=== PATIENT | female | born 1955 | race Caucasian/White ===

== ENCOUNTER 2018-09-15 05:20 | Inpatient (IN) | payer MEDICARE, MEDICAID ==
[2018-09-15] MEDS ORDERED: MAGNESIUM SULFATE/D5W 1 GM/100 ML RTUPB IV ONE (05:23)
[2018-09-15] MEDS ORDERED: METHYLPREDNISOLONE INJ 125 MG/2 ML SDV ONE (05:23)
[2018-09-15] MEDS ORDERED: ALBUTEROL SULFATE 0.083% NEB 2.5 MG/3 ML AMPUL NEB ONE ×2 (05:24→05:28)
[2018-09-15] MEDS: MAGNESIUM SULFATE/D5W 1 GM/100 ML RTUPB IV SCH ×2 (05:28→06:00)
[2018-09-15] MEDS ORDERED: METHYLPREDNISOLONE INJ 125 MG/2 ML SDV IV ONE (05:29)
[2018-09-15] MEDS ORDERED: MIDAZOLAM HCL 50 MG/100 ML RTUINJ IV PRN (05:34)
--- NOTE | 2018-09-15 05:35 | ER Document Report ---
ED General - General Stated Complaint: TROUBLE BREATHING Time Seen by Provider: 09/15/18 05:27 Notes: Patient is a 58-year-old female was brought in by paramedics due to respiratory failure. Patient called 911 but she was having difficulty breathing. When paramedics arrived she was sent over and her children with a nebulizer mask on. She is unresponsive. Pupils were both dilated. She still had good pulses. They intubated her and brought her to the ER. She received ketamine in route because her lung magana are very tight with wheezing. Paramedics said that she had no purposeful movement when they arrived. They did give her rocuronium when they intubated her. She has not had further sedation. No further history is available at this time as there was no one else at the house. - Related Data Allergies/Adverse Reactions: No Known Allergies Allergy (Unverified 09/15/18 13:36) Past Medical History - Social History Smoking Status: Unknown if Ever Smoked Frequency of alcohol use: unknown Drug Abuse: Other - unknown Family History: Other - unknown Review of Systems - Review of Systems -: Yes ROS unobtainable due to patient's medical condition - Patient is unresponsive Physical Exam - Vital signs Vitals: Resp BP Pulse Ox 18 102/31 L 98 09/15/18 05:21 09/15/18 05:21 09/15/18 05:21 - Notes Notes: General Appearance: Well nourished, unresponsive. Patient being manually ventilated. Vitals: reviewed, See vital signs table. Head: no swelling or tenderness to the head Eyes: Pupils are fixed and dilated, EOMI, Conjuctiva clear Mouth: No decreasd moisture Throat: Intubated Lungs: Wheezing. poor to fair air exchange. Heart: tachycardic rate, Regular rythm, No murmur, no rub Abdomen: Normal BS, soft, No rigidity, No abdominal tenderness, No guarding, no rebound, Extremities:good pulses in all extremities, no edema. Skin: warm, dry, appropriate color, no rash Neuro: Patient's pupils are fixed and dilated. She has no purposeful movement. She is not currently on any sedating medications other than the ketamine and rocuronium that she received by the paramedics. Course - Re-evaluation Re-evalutation: 09/15/18 05:35 Patient has no purposeful movement but she also did receive rocuronium by the paramedics therefore we will place her on some sedation to make sure that she is not awake and paralyzed. I am concerned with the fact that she is sure pupils are fixed and dilated when paramedics arrived at the house. It is atypical for someone to have respiratory failure and have fixed pupil dilated pupils without going into cardiac arrest. I therefore will obtain a CT scan to make sure she does not have actual intracranial bleed. We will continue to treat her from a respiratory standpoint as well with nebulizer treatments, solu medrol, magnesium. - Vital Signs Vital signs: Temp Pulse Resp BP Pulse Ox 99.5 F 96 27 H 116/78 99 09/15/18 20:00 09/15/18 18:00 09/15/18 18:00 09/15/18 18:00 09/15/18 18:00 - Laboratory Result Diagrams: 09/15/18 05:25 09/15/18 05:25 Laboratory results interpreted by me: 09/15/18 09/15/18 09/15/18 05:25 05:25 05:25 WBC 12.5 H Hgb 11.7 L MCHC 31.9 L RDW 16.0 H Seg Neuts % (Manual) 40 L Lymphocytes % (Manual) 52 H Metamyelocytes % 1 H Abs Lymphs (Manual) 6.6 H VBG pH 6.86 L* VBG pCO2 155.4 H* Glucose 258 H Direct Bilirubin 0.5 H AST 71 H NT-Pro-B Natriuret Pep Total Protein 6.0 L 09/15/18 05:25 WBC Hgb MCHC RDW Seg Neuts % (Manual) Lymphocytes % (Manual) Metamyelocytes % Abs Lymphs (Manual) VBG pH VBG pCO2 Glucose Direct Bilirubin AST NT-Pro-B Natriuret Pep 2250 H Total Protein - EKG Interpretation by Me Additional EKG results interpreted by me: 09/15/18 05:37 EKG is reviewed and interpreted by me. EKG shows sinus tachycardia with rate of [address] segment elevation or depression. No ischemic T wave inversions. DC interval, QRS duration, QT intervals are within normal range. Patient has occasional PVC. Discharge - Discharge Clinical Impression: Respiratory failure Qualifiers: Chronicity: acute Respiratory failure complication: hypercapnia Qualified Code(s): J96.02 - Acute respiratory failure with hypercapnia Condition: Critical Disposition: ADMITTED INPATIENT
[2018-09-15] MEDS ORDERED: MIDAZOLAM HCL 50 MG/100 ML RTUINJ ONE (05:39)
[2018-09-15 06:01] LABS: HEMATOCRIT 36.8 % (36.0-47.0); HEMOGLOBIN 11.7 g/dL (12.0-15.5); MEAN CORPUSCULAR HEMOGLOBIN 29.4 pg (27.0-33.4); MEAN CORPUSCULAR HGB CONC 31.9 g/dL (32.0-36.0); MEAN CORPUSCULAR VOLUME 92 fl (80-97); PLATELET COUNT 404 10^3/uL (150-450); WHITE BLOOD COUNT 12.5 10^3/uL (4.0-10.5)
[2018-09-15 06:06] LABS: ALANINE AMINOTRANSFERASE 24 U/L (9-52); ALBUMIN 3.6 g/dL (3.5-5.0); ALKALINE PHOSPHATASE 62 U/L (38-126); ANION GAP 13 (5-19); ASPARTATE AMINO TRANSFERASE 71 U/L (14-36); BILIRUBIN,DIRECT 0.5 mg/dL (0.0-0.4); BILIRUBIN,TOTAL 0.5 mg/dL (0.2-1.3); BLOOD UREA NITROGEN 11 mg/dL (7-20); CALCIUM 8.4 mg/dL (8.4-10.2); CARBON DIOXIDE 25 mmol/L (22-30); CHLORIDE 106 mmol/L (98-107); GLUCOSE 258 mg/dL (75-110); POTASSIUM 4.5 mmol/L (3.6-5.0)
[2018-09-15 06:15] LABS: ABSOLUTE LYMPHOCYTES# (MANUAL) 6.6 10^3/uL (0.5-4.7); ABSOLUTE MONOCYTES # (MANUAL) 0.6 10^3/uL (0.1-1.4); BASOPHILS % (MANUAL) 0 % (0-2); EOSINOPHILS % (MANUAL) 1 % (0-6); LYMPHOCYTES % (MANUAL) 52 % (13-45); METAMYELOCYTES % (MANUAL) 1 % (0); MONOCYTES % (MANUAL) 5 % (3-13); PLATELET COMMENT ADEQUATE; SEGMENTED NEUTROPHILS % (MAN) 40 % (42-78); TOTAL CELLS COUNTED 100
[2018-09-15 06:16] LABS: ANISOCYTOSIS SLIGHT; POIKILOCYTOSIS SLIGHT
--- NOTE | 2018-09-15 06:28 | RADIOLOGY REPORT (SQ) ---
Chest single view on 09/15/2018 at 5:32 AM CLINICAL INDICATION: Shortness of breath COMPARISON: 08/05/2018 FINDINGS: ET tube tip is in the midthoracic trachea. Other tubes and lines have been removed. A few overlying wires are noted. Heart is upper limits normal for size. There are worsening bilateral interstitial opacities likely representing edema. Vascular calcification is noted in the aorta. IMPRESSION: Mild worsening bilateral interstitial opacities suggesting edema.
--- NOTE | 2018-09-15 06:35 | ER Document Report ---
ED Resuscitation - General Chief Complaint: Unresponsive Stated Complaint: TROUBLE BREATHING Time Seen by Provider: 09/15/18 05:27 Notes: 58-year-old female was brought in by paramedics due to respiratory failure. Patient called 911 but she was having difficulty breathing. When paramedics arrived she was sent over and her children with a nebulizer mask on. She is unresponsive. Pupils were both dilated. She still had good pulses. They intubated her and brought her to the ER. She received ketamine in route because her lung magana are very tight with wheezing. Paramedics said that she had no purposeful movement when they arrived. They did give her rocuronium when they intubated her. She has not had further sedation. No further history is available at this time as there was no one else at the house. Past Medical History - Social History Smoking Status: Unknown if Ever Smoked Frequency of alcohol use: unknown Drug Abuse: Other - unknown Family History: Other - unknown Patient has suicidal ideation: No Patient has homicidal ideation: No Renal/ Medical History: Denies: Hx Peritoneal Dialysis Review of Systems - Review of Systems -: Yes ROS unobtainable due to patient's medical condition Physical Exam - Vital signs Vitals: Resp BP Pulse Ox 18 102/31 L 98 09/15/18 05:21 09/15/18 05:21 09/15/18 05:21 - Notes Notes: GENERAL_APPEARANCE: well_nourished, obtunded intubated in distress VITALS: reviewed, see vital signs table. HEAD: no_swellingon the head. EYES: PERRL, EOMI, conjunctiva_clear. NOSE: no_nasal_discharge. MOUTH: (-)decreased moisture. THROAT: no_throat_inflammation, no_airway_obstruction. no_lymphadenopathy NECK: supple, (-)thyromegaly. Negative JVD CHEST_WALL: No crepitus or subcutaneous emphysema LUNGS: Scattered_wheezing, no_rales, no_rhonchi, positive accessory muscle use, fair air exchange bilateral. HEART: normal_rate, normal_rhythm, normal_S1, normal_S2, (-)S3, (-)S4, n o_murmur, no_rub. ABDOMEN: soft,, (-)guarding, (-)rebound, no_organomegaly, no_abd_masses. EXTREMITIES: good pulses in all_extremities, no_edema. SKIN: warm, dry, good_color, no_rash. MENTAL_STATUS: Intubated paralyzed NEURO: Intubated and paralyzed at this time Course - Re-evaluation Re-evalutation: 09/15/18 06:35 The patient was intubated via EMS in the field for being unresponsive. Patient did have some wheezing but has improved with aerosol treatments. Get a blood gas. Patient is comfortable V intubation we will work the patient up and admit to the intensive care unit. 09/15/18 08:17 PCO2 is 155. I have adjusted the minute volume up on the vent down the FiO2 from 100% down to 60%. The patient received steroids and magnesium is doing better. Patient's been maintained on a Versed drip. CT scan of the brain was normal. This is likely hypercarbic respiratory failure. I spoke with the hospital service for ICU admission. - Vital Signs Vital signs: Temp Pulse Resp BP Pulse Ox 18 103/48 L 98 09/15/18 07:07 09/15/18 07:07 09/15/18 07:07 - Laboratory Result Diagrams: 09/15/18 05:25 09/15/18 05:25 Laboratory results interpreted by me: 09/15/18 09/15/18 09/15/18 05:25 05:25 05:25 WBC 12.5 H Hgb 11.7 L MCHC 31.9 L RDW 16.0 H Seg Neuts % (Manual) 40 L Lymphocytes % (Manual) 52 H Metamyelocytes % 1 H Abs Lymphs (Manual) 6.6 H VBG pH 6.86 L* VBG pCO2 155.4 H* Glucose 258 H Direct Bilirubin 0.5 H AST 71 H NT-Pro-B Natriuret Pep Total Protein 6.0 L 09/15/18 05:25 WBC Hgb MCHC RDW Seg Neuts % (Manual) Lymphocytes % (Manual) Metamyelocytes % Abs Lymphs (Manual) VBG pH VBG pCO2 Glucose Direct Bilirubin AST NT-Pro-B Natriuret Pep 2250 H Total Protein - Diagnostic Test Radiology reviewed: Image reviewed - EKG Interpretation by Me EKG shows normal: Sinus rhythm Rate: Normal Rhythm: NSR Critical Care Note - Critical Care Note Total time excluding time spent on procedures (mins): 45 Discharge - Discharge Clinical Impression: Respiratory failure Qualifiers: Chronicity: acute Respiratory failure complication: hypercapnia Qualified Code(s): J96.02 - Acute respiratory failure with hypercapnia Condition: Critical Disposition: ADMITTED INPATIENT Admitting Provider: Regino (Hospitalist) Unit Admitted: ICU
--- NOTE | 2018-09-15 06:42 | RADIOLOGY REPORT (SQ) ---
EXAM DESCRIPTION: CT HEAD WITHOUT IV CONTRAST COMPLETED DATE/TME: 09/15/2018 05:27 CLINICAL HISTORY: 62 years, Female, unresponsive COMPARISON: None. TECHNIQUE: Axial CT images of the brain were obtained without contrast. Sagittal and coronal reformats were performed. DL 910 Images stored on PACS. All CT scanners at this facility use dose modulation, iterative reconstruction, and/or weight based dosing when appropriate to reduce radiation dose to as low as reasonably achievable (ALARA). [facility]: Dose Right [facility]: CareDose [facility]: Dose Right [facility]: Teradose 4D [facility]: [employer] LIMITATIONS: None. FINDINGS: There is no acute cortical infarct, hemorrhage, mass, edema, hydrocephalus, or extra-axial fluid collection. The rodgers-white matter differentiation is preserved. There is mild diffuse cerebral atrophy with mild periventricular deep white matter chronic microvascular changes. The paranasal sinuses and mastoid air cells are clear. There is no acute fracture. IMPRESSION: No acute intracranial abnormality. TECHNICAL DOCUMENTATION: Quality ID # 436: Final reports with documentation of one or more dose reduction techniques (e.g., Automated exposure control, adjustment of the mA and/or kV according to patient size, use of iterative reconstruction technique) copyright 2010 [employer]- All Rights Reserved
[2018-09-15 06:50] LABS: VENOUS BLOOD BASE EXCESS -9.3 mmol/L; VENOUS BLOOD HCO3 27.1 mmol/L (20-32); VENOUS BLOOD PCO2 155.4 mmHg (35-63)
[2018-09-15 07:03] LABS: VENOUS BLOOD PH 6.86 (7.30-7.42)
[2018-09-15 07:17] LABS: TROPONIN I 0.016 ng/mL
--- NOTE | 2018-09-15 08:14 | EKG REPORT ---
SEVERITY:- ABNORMAL ECG - SINUS TACHYCARDIA VENTRICULAR PREMATURE COMPLEX LOW VOLTAGE IN FRONTAL LEADS NONSPECIFIC T ABNORMALITIES, LATERAL LEADS : Confirmed by: Jason Sen 15-Sep-2018 08:13:27
[2018-09-15] MEDS ORDERED: FENTANYL CITRATE INJ/PF 100 MCG/2 ML AMPUL IV ONE ×2 (08:39→09:52)
[2018-09-15] MEDS: MIDAZOLAM HCL 50 MG/100 ML RTUINJ IV PRN ×4 (09:05→22:40)
[2018-09-15] MEDS ORDERED: FENTANYL CITRATE INJ/PF 100 MCG/2 ML AMPUL ONE ×2 (09:29→14:57)
[2018-09-15] MEDS ORDERED: LEVALBUTEROL HCL NEB 1.25 MG/3 ML AMPUL NEB PRN (09:56)
[2018-09-15 10:12] LABS: ARTERIAL BLOOD BASE EXCESS -1.3 mmol/L; ARTERIAL BLOOD H2CO3 2.36 mmol/L (1.05-1.35); ARTERIAL BLOOD HCO3 28.9 mmol/L (20-24); ARTERIAL BLOOD O2 SATURATION 98.2 % (94-98); ARTERIAL BLOOD TOTAL CO2 31.3 mmol/L (21-25)
[2018-09-15 10:14] LABS: ARTERIAL BLOOD FIO2 100%
[2018-09-15 10:16] LABS: ARTERIAL BLOOD PCO2 78.5 mmHg (35-45)
[2018-09-15 10:17] LABS: ARTERIAL BLOOD PH 7.18 (7.35-7.45)
[2018-09-15] MEDS ORDERED: FAMOTIDINE INJ/PF 20 MG/2 ML SDV IV SCH (11:00)
[2018-09-15] MEDS: BUDESONIDE NEB 0.5 MG/2 ML AMPUL NEB SCH ×2 (11:20→20:21)
[2018-09-15] MEDS: IPRATROPIUM/ALBUTEROL 0.5-2.5 MG/3 ML AMPUL NEB SCH ×3 (11:20→20:21)
[2018-09-15] MEDS: METHYLPREDNISOLONE INJ 40 MG/1 ML SDV IV SCH ×3 (11:21→21:30)
[2018-09-15] MEDS ORDERED: GLUCAGON,HUMAN RECOMB 1 MG INJ SUBCUT PRN (11:39)
[2018-09-15] MEDS ORDERED: DEXTROSE 40% GEL 15 GM TUBE PO PRN ×2 (11:39)
[2018-09-15] MEDS ORDERED: DEXTROSE 50%-WATER 25 GM/50 ML DISP.SYRIN IV PRN ×2 (11:39)
[2018-09-15] MEDS ORDERED: NORMAL SALINE 1000 ML 1,000 ML IV PRN (11:39)
[2018-09-15] MEDS ORDERED: ACETAMINOPHEN SOLN 325 MG/10.15 ML UDCUP NG PRN (11:39)
[2018-09-15] MEDS ORDERED: ACETAMINOPHEN 650 MG SUPP.RECT PR PRN (11:39)
[2018-09-15] MEDS ORDERED: PHARMACY COMMUNICATION ORDER MC NR (11:45)
[2018-09-15] MEDS ORDERED: METOPROLOL TARTRATE PF/INJ 5 MG/5 ML SDV IV PRN (11:58)
[2018-09-15 12:06] LABS: ARTERIAL BLOOD BASE EXCESS -0.6 mmol/L; ARTERIAL BLOOD FIO2 35%; ARTERIAL BLOOD H2CO3 1.56 mmol/L (1.05-1.35); ARTERIAL BLOOD HCO3 26.1 mmol/L (20-24); ARTERIAL BLOOD O2 SATURATION 93.2 % (94-98); ARTERIAL BLOOD PCO2 51.7 mmHg (35-45); ARTERIAL BLOOD PH 7.32 (7.35-7.45); ARTERIAL BLOOD PO2 72.3 mmHg (80-100); ARTERIAL BLOOD TOTAL CO2 27.7 mmol/L (21-25)
[2018-09-15] MEDS ORDERED: METOPROLOL TARTRATE PF/INJ 5 MG/5 ML SDV IV ONE (13:45)
[2018-09-15] MEDS: AMPICILLIN SODIUM/SULBACTAM NA 1.5 GM in NORMAL SALINE 50 ML IV SCH ×3 (13:54→23:57)
[2018-09-15] MEDS: LORAZEPAM INJ 2 MG/1 ML VIAL IV PRN ×2 (13:57→21:31)
[2018-09-15] MEDS: INSULIN LISPRO 100 UNIT/ML 3 ML VIAL SUBCUT SCH ×5 (13:58→23:57)
[2018-09-15] MEDS: GABAPENTIN 400 MG CAPSULE NG SCH ×2 (14:03→21:30)
[2018-09-15] MEDS: FUROSEMIDE 20 MG TABLET NG SCH (17:55)
[2018-09-15] MEDS: METFORMIN HCL 850 MG TABLET NG SCH (18:09)
[2018-09-15] MEDS: SACUBITRIL/VALSARTAN 24 MG/26 MG TABLET NG SCH (18:09)
--- NOTE | 2018-09-15 21:16 | EKG REPORT ---
SEVERITY:- ABNORMAL ECG - SINUS RHYTHM PAIRED VENTRICULAR PREMATURE COMPLEXES LOW VOLTAGE IN FRONTAL LEADS NONSPECIFIC T ABNORMALITIES, DIFFUSE LEADS : Confirmed by: Jason Sen 15-Sep-2018 21:15:44
--- NOTE | 2018-09-15 21:17 | PDOC H&P ---
History of Present Illness Admission Date/PCP: 09/15/18 08:31 Patient complains of: Acute onset of shortness of breath History of Present Illness: MONIQUE BAIRD is a 62 year old female with a history of chronic obstructive pulmonary disease. She has been intubated multiple times before. Presents with acute exacerbation of shortness of breath with a pH of 7.15 and a PCO2 of 78. At the time of this encounter she is intubated and unable to provide any information. Past Medical History Cardiac Medical History: Reports: Congestive Heart Failure, Hyperlipidema, Hypertension Pulmonary Medical History: Reports: Asthma, Chronic Obstructive Pulmonary Disease (COPD), Intubation, Pneumonia, Respiratory Failure EENT Medical History: Denies: Cataracts, Nose, Throat Neurological Medical History: Denies: Hemorrhagic CVA, Ischemic CVA, Multiple Sclerosis Endocrine Medical History: Reports: Diabetes Mellitus Type 2, Hypothyroidism Renal/ Medical History: Denies: Chronic Kidney Disease, End Stage Renal Disease Malignancy Medical History: Reports: None GI Medical History: Reports: Gastroesophageal Reflux Disease Musculoskeltal Medical History: Denies: Arthritis, Fibromyalgia Skin Medical History: Denies: Eczema, Psoriasis Psychiatric Medical History: Reports: Depression Denies: Alcohol Dependency, Bipolar Disorder Traumatic Medical History: Reports: None Hematology: Reports: None Infectious Medical History: Reports: None Past Surgical History Past Surgical History: Reports: Coronary Stent, Hysterectomy Social History Information Source: [facility] Records Lives with: Other - Unknown Smoking Status: Unknown if Ever Smoked Amount of Alcoholic Beverages Per Day: Unknown - Advance Directive Resuscitation Status: Full Code Family History Family History: Other - unknown Parental Family History Reviewed: No Children Family History Reviewed: No Sibling(s) Family History Reviewed.: No Medication/Allergy Home Medications: Albuterol Sulfate [Albuterol Sulfate Hfa] 2 puff IH Q6HP PRN 09/15/18 Aspirin [Ecotrin 81 mg EC Tablet] 81 mg PO DAILY 09/15/18 Atorvastatin Calcium [Lipitor 40 mg Tablet] 40 mg PO QHS 09/15/18 Carvedilol [Coreg 6.25 mg Tablet] 6.25 mg PO Q12 09/15/18 Cilostazol 50 mg PO Q12 09/15/18 Clonazepam [Klonopin 1 mg Tablet] 1 mg PO Q12HP PRN 09/15/18 Fluticasone/Umeclidin/Vilanter [Trelegy 100-62.5-25 Mcg Ellipta 14 Dose/Dpi] 1 puff IH DAILY 09/15/18 Furosemide [Lasix 20 mg Tablet] 20 mg PO QAM 09/15/18 Gabapentin [Neurontin 400 mg Capsule] 400 mg PO Q8 09/15/18 Insulin Glargine,Hum.rec.anlog [Lantus Insulin 100 Unit/1 ml 10 ml] 45 unit SUBCUT QHS 09/15/18 Ipratropium/Albuterol Sulfate [Combivent Respimat 4 gm Mdi] 1 puff IH Q6 09/15/18 Ipratropium/Albuterol Sulfate [Duoneb 3 ml Ampul] 3 ml NEB RTQ6HP PRN 09/15/18 Levothyroxine Sodium [Synthroid 0.025 mg Tablet] 0.025 mg PO Q6AM 09/15/18 Metformin HCl 850 mg PO BID 09/15/18 Omeprazole 20 mg PO BID 09/15/18 Ondansetron [Zofran Odt 4 mg Tablet] 4 mg PO Q4HP PRN 09/15/18 Sacubitril/Valsartan [Entresto 24 mg/26 mg Tablet] 1 tab PO Q12 09/15/18 Sertraline HCl [Zoloft 50 mg Tablet] 50 mg PO DAILY 09/15/18 Allergies/Adverse Reactions: No Known Allergies Allergy (Unverified 09/15/18 13:36) Review of Systems ROS unobtainable: Due to endotracheal tube Physical Exam Vital Signs: Temp Pulse Resp BP Pulse Ox 98.2 F 106 H 20 106/47 L 96 09/15/18 10:14 09/15/18 11:20 09/15/18 11:20 09/15/18 10:14 09/15/18 11:20 Intake & Output 09/14/18 09/15/18 09/16/18 06:59 06:59 06:59 Intake Total 200 27 Balance 200 27 Weight 80.6 kg 79.6 kg General appearance: PRESENT: mild distress, well-developed, other - Patient is intubated and awake Head exam: PRESENT: atraumatic, normocephalic Eye exam: PRESENT: conjunctiva pink. ABSENT: scleral icterus Ear exam: PRESENT: normal external ear exam Mouth exam: PRESENT: other - Endotracheal tube in place Neck exam: ABSENT: carotid bruit, JVD, lymphadenopathy Respiratory exam: PRESENT: symmetrical, unlabored, wheezes. ABSENT: rales, rhonchi, tachypnea Cardiovascular exam: PRESENT: +S1, +S2, tachycardia GI/Abdominal exam: PRESENT: normal bowel sounds, soft. ABSENT: distended, tenderness Rectal exam: PRESENT: deferred Gentrourinary exam: PRESENT: indwelling catheter Extremities exam: ABSENT: joint swelling, pedal edema Musculoskeletal exam: PRESENT: normal inspection Neurological exam: PRESENT: alert, awake, oriented to person, other - Unable to fully assess as patient is intubated Psychiatric exam: ABSENT: agitated, anxious Focused psych exam: ABSENT: delusional, restlessness Results Laboratory Results: 09/15/18 05:25 09/15/18 05:25 09/15/18 09/15/18 09/15/18 05:25 05:25 05:25 WBC 12.5 H RBC 4.00 Hgb 11.7 L Hct 36.8 MCV 92 MCH 29.4 MCHC 31.9 L RDW 16.0 H Plt Count 404 Seg Neutrophils % Not Reportable Lymphocytes % Not Reportable Monocytes % Not Reportable Eosinophils % Not Reportable Basophils % Not Reportable Absolute Neutrophils Not Reportable Absolute Lymphocytes Not Reportable Absolute Monocytes Not Reportable Absolute Eosinophils Not Reportable Absolute Basophils Not Reportable Carbonic Acid HCO3/H2CO3 Ratio ABG pH ABG pCO2 ABG pO2 ABG HCO3 ABG O2 Saturation ABG Base Excess VBG pH 6.86 L* VBG pCO2 155.4 H* VBG HCO3 27.1 VBG Base Excess -9.3 FiO2 Sodium 143.6 Potassium 4.5 Chloride 106 Carbon Dioxide 25 Anion Gap 13 BUN 11 Creatinine 0.71 Est GFR ( Amer) > 60 Est GFR (Non-Af Amer) > 60 Glucose 258 H Calcium 8.4 Total Bilirubin 0.5 AST 71 H ALT 24 Alkaline Phosphatase 62 Total Protein 6.0 L Albumin 3.6 09/15/18 09/15/18 09:50 11:00 WBC RBC Hgb Hct MCV MCH MCHC RDW Plt Count Seg Neutrophils % Lymphocytes % Monocytes % Eosinophils % Basophils % Absolute Neutrophils Absolute Lymphocytes Absolute Monocytes Absolute Eosinophils Absolute Basophils Carbonic Acid 2.36 H 1.56 H HCO3/H2CO3 Ratio 12:1 16:1 ABG pH 7.18 L* 7.32 L ABG pCO2 78.5 H* 51.7 H ABG pO2 147.0 H 72.3 L ABG HCO3 28.9 H 26.1 H ABG O2 Saturation 98.2 H 93.2 L ABG Base Excess -1.3 -0.6 VBG pH VBG pCO2 VBG HCO3 VBG Base Excess FiO2 100% 35% Sodium Potassium Chloride Carbon Dioxide Anion Gap BUN Creatinine Est GFR ( Amer) Est GFR (Non-Af Amer) Glucose Calcium Total Bilirubin AST ALT Alkaline Phosphatase Total Protein Albumin 09/15/18 09/15/18 05:25 05:25 Creatine Kinase 61 Troponin I 0.016 NT-Pro-B Natriuret Pep 2250 H Impressions: Chest X-Ray 09/15/18 05:27 IMPRESSION: Mild worsening bilateral interstitial opacities suggesting edema. Head CT 09/15/18 05:27 IMPRESSION: No acute intracranial abnormality. TECHNICAL DOCUMENTATION: Quality ID # 436: Final reports with documentation of one or more dose reduction techniques (e.g., Automated exposure control, adjustment of the mA and/or kV according to patient size, use of iterative reconstruction technique) copyright 2011 [employer]- All Rights Reserved Assessment and Plan - Diagnosis (1) Acute on chronic respiratory failure with hypoxia and hypercapnia Is this a current diagnosis for this admission?: Yes Plan: 09/15/2018-the patient was intubated prior to this encounter. She will be admitted to the intensive care unit. Nebulizers, steroids and antibiotics have been ordered. Dr. Montiel is seeing the patient as well. Will try to wean from the ventilator as tolerated. (2) Coronary artery disease Qualifiers: Coronary Disease-Associated Artery/Lesion type: [place] artery [place] vs. transplanted heart: [place] heart Associated angina: without angina Qualified Code(s): I25.10 - Atherosclerotic heart disease of [place] coronary artery without angina pectoris Is this a current diagnosis for this admission?: Yes Plan: 09/15/2018-unable to determine if the patient is having symptoms. We will continue her cardiac medications at this time. We will monitor her vital signs as well. (3) Hypertension Qualifiers: Hypertension type: essential hypertension Qualified Code(s): I10 - Essential (primary) hypertension Is this a current diagnosis for this admission?: Yes Plan: 09/15/2018-unable to obtain much information. We will continue current medication regimen. (4) Hypothyroidism Qualifiers: Hypothyroidism type: unspecified Qualified Code(s): E03.9 - Hypothyroidism, unspecified Is this a current diagnosis for this admission?: Yes Plan: 09/15/2018-continue current dose of levothyroxine (5) Diabetes mellitus type 2, noninsulin dependent Is this a current diagnosis for this admission?: Yes Plan: 09/15/2018-continue metformin, Accu-Cheks every 6 hours and sliding scale coverage (6) Depression Qualifiers: Depression Type: unspecified Qualified Code(s): F32.9 - Major depressive disorder, single episode, unspecified Is this a current diagnosis for this admission?: Yes Plan: 09/15/2018-continue sertraline (7) Chronic congestive heart failure Qualifiers: Heart failure type: unspecified Qualified Code(s): I50.9 - Heart failure, unspecified Is this a current diagnosis for this admission?: Yes Plan: 09/15/2018-unable to determine specifics at this time. We will continue the carvedilol, Entresto as well as the aspirin, Pletal and Lipitor - Time Time Spent with patient: 35 or more minutes Medications reviewed and adjusted accordingly: Yes - Inpatient Certification Based on my medical assessment, after consideration of the patient's comorbid ities, presenting symptoms, or acuity I expect that the services needed warrant INPATIENT care.: Yes I certify that my determination is in accordance with my understanding of Medicare's requirements for reasonable and necessary INPATIENT services [42 CFR 412.3e].: Yes Medical Necessity: Significant Comorbidiites Make Outpatient Treatment Too Risky, Need For Continuous Telemetry Monitoring, Need for Nebulizer Therapy and Monitoring of Response, Need for IV Antibiotics, Other - Patient is intubated Post Hospital Care: D/C Adult Basic Education Instructor Documentation
[2018-09-15] MEDS: ASPIRIN 81 MG TABLET, CHEWABLE NG SCH (21:30)
[2018-09-15] MEDS: CARVEDILOL 6.25 MG TABLET NG SCH (21:30)
[2018-09-15] MEDS: ATORVASTATIN CALCIUM 40 MG TABLET NG SCH (21:30)
[2018-09-15] MEDS: FENTANYL CITRATE INJ/PF 100 MCG/2 ML AMPUL IV PRN (22:17)
[2018-09-16] MEDS: IPRATROPIUM/ALBUTEROL 0.5-2.5 MG/3 ML AMPUL NEB SCH ×4 (02:08→19:31)
[2018-09-16] MEDS: MIDAZOLAM HCL 50 MG/100 ML RTUINJ IV PRN ×4 (02:50→20:58)
[2018-09-16 03:52] LABS: ARTERIAL BLOOD FIO2 30%; ARTERIAL BLOOD H2CO3 1.23 mmol/L (1.05-1.35); ARTERIAL BLOOD HCO3 25.6 mmol/L (20-24); ARTERIAL BLOOD O2 SATURATION 92.4 % (94-98); ARTERIAL BLOOD PCO2 40.9 mmHg (35-45); ARTERIAL BLOOD PH 7.42 (7.35-7.45); ARTERIAL BLOOD PO2 62.8 mmHg (80-100); ARTERIAL BLOOD TOTAL CO2 26.9 mmol/L (21-25)
[2018-09-16 04:17] LABS: ABSOLUTE LYMPHOCYTES (AUTO) 1.1 10^3/uL (0.5-4.7); ABSOLUTE MONOCYTES (AUTO) 0.4 10^3/uL (0.1-1.4); ABSOLUTE NEUT (AUTO) 12.6 10^3/uL (1.7-8.2); BASOPHILS % (AUTO) 0.1 % (0-2); HEMATOCRIT 32.3 % (36.0-47.0); LYMPHOCYTES % (AUTO) 7.5 % (13-45); MEAN CORPUSCULAR HEMOGLOBIN 29.8 pg (27.0-33.4); MEAN CORPUSCULAR HGB CONC 34.1 g/dL (32.0-36.0); PLATELET COUNT 301 10^3/uL (150-450); RED BLOOD COUNT 3.71 10^6/uL (3.72-5.28); RED CELL DISTRIBUTION WIDTH 16.1 % (11.5-14.0); SEGMENTED NEUTROPHILS % (AUTO) 89.4 % (42-78); TOTAL CELLS COUNTED % (AUTO) 100 %; WHITE BLOOD COUNT 14.1 10^3/uL (4.0-10.5)
[2018-09-16 04:20] LABS: MEAN CORPUSCULAR VOLUME 87 fl (80-97)
[2018-09-16 04:32] LABS: ALANINE AMINOTRANSFERASE 41 U/L (9-52); ALBUMIN 3.4 g/dL (3.5-5.0); ALKALINE PHOSPHATASE 79 U/L (38-126); ANION GAP 8 (5-19); ASPARTATE AMINO TRANSFERASE 26 U/L (14-36); BILIRUBIN,DIRECT 0.2 mg/dL (0.0-0.4); BILIRUBIN,TOTAL 0.3 mg/dL (0.2-1.3); BLOOD UREA NITROGEN 12 mg/dL (7-20); CALCIUM 8.7 mg/dL (8.4-10.2); CARBON DIOXIDE 26 mmol/L (22-30); CHLORIDE 107 mmol/L (98-107); GLUCOSE 196 mg/dL (75-110); TOTAL PROTEIN 5.7 g/dL (6.3-8.2)
[2018-09-16] MEDS: FENTANYL CITRATE INJ/PF 100 MCG/2 ML AMPUL IV PRN ×3 (04:32→21:55)
[2018-09-16 04:43] LABS: POTASSIUM 3.2 mmol/L (3.6-5.0)
[2018-09-16] MEDS: LORAZEPAM INJ 2 MG/1 ML VIAL IV PRN ×2 (05:46→15:43)
[2018-09-16] MEDS: GABAPENTIN 400 MG CAPSULE NG SCH ×3 (05:46→21:01)
[2018-09-16] MEDS: METHYLPREDNISOLONE INJ 40 MG/1 ML SDV IV SCH ×3 (05:46→21:01)
[2018-09-16] MEDS: PANTOPRAZOLE SODIUM 40 MG PACKET.DR NG SCH (05:46)
[2018-09-16] MEDS: LEVOTHYROXINE SODIUM 0.025 MG TABLET NG SCH (05:46)
[2018-09-16] MEDS: INSULIN LISPRO 100 UNIT/ML 3 ML VIAL SUBCUT SCH ×5 (05:47→23:43)
[2018-09-16] MEDS: AMPICILLIN SODIUM/SULBACTAM NA 1.5 GM in NORMAL SALINE 50 ML IV SCH ×2 (06:21→12:01)
[2018-09-16] MEDS ORDERED: POTASSIUM CHLORIDE 20 MEQ PACKET NG ONE (06:30)
--- NOTE | 2018-09-16 08:13 | RADIOLOGY REPORT (SQ) ---
EXAM DESCRIPTION: CHEST SINGLE VIEW COMPLETED DATE/TIME: 09/16/2018 6:24 am REASON FOR STUDY: copd/resp failure COMPARISON: 09/15/2018 NUMBER OF VIEWS: One view. TECHNIQUE: Single frontal radiographic image of the chest acquired. LIMITATIONS: None. FINDINGS: LUNGS AND PLEURA: Stable appearance. MEDIASTINUM AND HILAR STRUCTURES: Stable heart size and mediastinal structures. HEART AND VASCULAR STRUCTURES: Stable appearance. SUPPORT DEVICES: Appropriate location without change. BONES: No acute findings. OTHER: No other significant finding. IMPRESSION: STABLE APPEARANCE OF THE CHEST. SUPPORT DEVICES UNCHANGED. TECHNICAL DOCUMENTATION: JOB ID: [id number] [employer]- All Rights Reserved Reading location - IP/workstation name: [email or web address]
[2018-09-16] MEDS: BUDESONIDE NEB 0.5 MG/2 ML AMPUL NEB SCH ×2 (08:26→20:08)
[2018-09-16] MEDS: METFORMIN HCL 850 MG TABLET NG SCH ×2 (10:00→17:49)
[2018-09-16] MEDS: ENOXAPARIN SODIUM INJ 40 MG/0.4 ML DISP.SYRIN SUBCUT SCH (10:21)
[2018-09-16] MEDS: FUROSEMIDE 20 MG TABLET NG SCH (10:22)
[2018-09-16] MEDS: SERTRALINE HCL 50 MG TABLET NG SCH (10:22)
[2018-09-16] MEDS: NICOTINE 21 MG/24 HR PATCH.TD24 TD SCH (10:22)
[2018-09-16] MEDS: CARVEDILOL 6.25 MG TABLET NG SCH ×2 (10:22→21:01)
[2018-09-16] MEDS: SACUBITRIL/VALSARTAN 24 MG/26 MG TABLET NG SCH ×2 (10:22→17:49)
[2018-09-16 13:02] LABS: ARTERIAL BLOOD BASE EXCESS -0.5 mmol/L; ARTERIAL BLOOD H2CO3 1.19 mmol/L (1.05-1.35); ARTERIAL BLOOD HCO3 24.1 mmol/L (20-24); ARTERIAL BLOOD O2 SATURATION 97.3 % (94-98); ARTERIAL BLOOD PCO2 39.4 mmHg (35-45); ARTERIAL BLOOD PO2 94.6 mmHg (80-100); ARTERIAL BLOOD TOTAL CO2 25.3 mmol/L (21-25)
[2018-09-16 13:03] LABS: ARTERIAL BLOOD FIO2 30%
[2018-09-16 15:26] LABS: ARTERIAL BLOOD BASE EXCESS -4.5 mmol/L; ARTERIAL BLOOD HCO3 27.5 mmol/L (20-24); ARTERIAL BLOOD O2 SATURATION 98.3 % (94-98); ARTERIAL BLOOD PO2 163.4 mmHg (80-100); ARTERIAL BLOOD TOTAL CO2 30.4 mmol/L (21-25)
[2018-09-16 15:27] LABS: ARTERIAL BLOOD FIO2 100%
[2018-09-16 15:28] LABS: ARTERIAL BLOOD PH 7.09 (7.35-7.45)
--- NOTE | 2018-09-16 15:31 | PDOC PROGRESS REPORT ---
Subjective Progress Note for:: 09/16/18 Subjective:: No adverse events overnight. Vital signs been stable. She was put on pressure support this morning and tolerated that for several hours. She had was doing fine off sedation and we extubated her successfully. She did well for several hours and was talking to the staff and then suddenly had a change in her respiratory status. We wound up having to reintubate her and she is already settling back down from a respiratory standpoint. Reason For Visit: ACUTE ON CHRONIC HYPOXIC,HYPERCAPNIC RESPIRATORY Physical Exam Vital Signs: Temp Pulse Resp BP Pulse Ox 99.7 F 108 H 19 141/89 H 100 09/16/18 14:00 09/16/18 14:00 09/16/18 14:00 09/16/18 14:00 09/16/18 14:00 Intake & Output 09/15/18 09/16/18 09/17/18 06:59 06:59 06:59 Intake Total 200 673 148 Output Total 845 200 Balance 200 -172 -52 Weight 80.6 kg 79.9 kg General appearance: PRESENT: no acute distress, obese, other - Sedated, intubated Respiratory exam: PRESENT: decreased breath sounds, symmetrical, wheezes. ABSENT: accessory muscle use, crackles, prolonged expiratory phas, rales, rhonchi, stridor, tachypnea Cardiovascular exam: PRESENT: RRR - Frequent PVCs on the monitor, +S1, +S2 Pulses: PRESENT: normal carotid pulses Vascular exam: PRESENT: normal capillary refill GI/Abdominal exam: PRESENT: normal bowel sounds, soft. ABSENT: distended, guarding, rebound, tenderness Extremities exam: ABSENT: clubbing, pedal edema Musculoskeletal exam: PRESENT: normal inspection. ABSENT: deformity Neurological exam: PRESENT: other - Sedated, intubated Skin exam: PRESENT: dry, warm Results Laboratory Results: 09/16/18 03:31 09/16/18 08:50 09/16/18 09/16/18 09/16/18 03:31 03:31 03:31 WBC 14.1 H RBC 3.71 L Hgb 11.0 L Hct 32.3 L MCV 87 D MCH 29.8 MCHC 34.1 RDW 16.1 H Plt Count 301 Seg Neutrophils % 89.4 H Lymphocytes % 7.5 L Monocytes % 3.0 Eosinophils % 0.0 Basophils % 0.1 Absolute Neutrophils 12.6 H Absolute Lymphocytes 1.1 Absolute Monocytes 0.4 Absolute Eosinophils 0.0 Absolute Basophils 0.0 Carbonic Acid HCO3/H2CO3 Ratio ABG pH ABG pCO2 ABG pO2 ABG HCO3 ABG O2 Saturation ABG Base Excess FiO2 Sodium 141.3 Potassium 3.2 L D Chloride 107 Carbon Dioxide 26 Anion Gap 8 BUN 12 Creatinine 0.54 Est GFR ( Amer) > 60 Est GFR (Non-Af Amer) > 60 Glucose 196 H Calcium 8.7 Magnesium 2.0 Total Bilirubin 0.3 AST 26 ALT 41 Alkaline Phosphatase 79 Total Protein 5.7 L Albumin 3.4 L TSH 3.16 09/16/18 09/16/18 09/16/18 03:46 08:50 12:45 WBC RBC Hgb Hct MCV MCH MCHC RDW Plt Count Seg Neutrophils % Lymphocytes % Monocytes % Eosinophils % Basophils % Absolute Neutrophils Absolute Lymphocytes Absolute Monocytes Absolute Eosinophils Absolute Basophils Carbonic Acid 1.23 1.19 HCO3/H2CO3 Ratio 20:1 20:1 ABG pH 7.42 7.40 ABG pCO2 40.9 39.4 ABG pO2 62.8 L 94.6 ABG HCO3 25.6 H 24.1 H ABG O2 Saturation 92.4 L 97.3 ABG Base Excess 1.0 -0.5 FiO2 30% 30% Sodium Potassium 3.8 Chloride Carbon Dioxide Anion Gap BUN Creatinine Est GFR ( Amer) Est GFR (Non-Af Amer) Glucose Calcium Magnesium Total Bilirubin AST ALT Alkaline Phosphatase Total Protein Albumin TSH 09/15/18 09/15/18 09/16/18 05:25 05:25 03:31 Creatine Kinase 61 Troponin I 0.016 NT-Pro-B Natriuret Pep 2250 H 7660 H Impressions: Head CT 09/15/18 05:27 IMPRESSION: No acute intracranial abnormality. TECHNICAL DOCUMENTATION: Quality ID # 436: Final reports with documentation of one or more dose reduction techniques (e.g., Automated exposure control, adjustment of the mA and/or kV according to patient size, use of iterative reconstruction technique) copyright 2011 [employer]- All Rights Reserved Chest X-Ray 09/16/18 06:00 IMPRESSION: STABLE APPEARANCE OF THE CHEST. SUPPORT DEVICES UNCHANGED. Assessment and Plan - Diagnosis (1) Acute on chronic respiratory failure with hypoxia and hypercapnia Is this a current diagnosis for this admission?: Yes Plan: Due to acute COPD exacerbation. Had to reintubate as noted above. We will continue with steroids, nebulizers, and antibiotics. (2) Acute exacerbation of chronic obstructive pulmonary disease (COPD) Is this a current diagnosis for this admission?: Yes Plan: Continue respiratory support, steroids, antibiotics, and bronchodilators. (3) Chronic congestive heart failure Qualifiers: Heart failure type: unspecified Qualified Code(s): I50.9 - Heart failure, unspecified Is this a current diagnosis for this admission?: Yes Plan: Not acutely exacerbated, continue home medications (4) Coronary artery disease Qualifiers: Coronary Disease-Associated Artery/Lesion type: [place] artery [place] vs. transplanted heart: [place] heart Associated angina: without angina Qualified Code(s): I25.10 - Atherosclerotic heart disease of [place] coronary artery without angina pectoris Is this a current diagnosis for this admission?: Yes Plan: Continuing home medications (5) Depression Qualifiers: Depression Type: unspecified Qualified Code(s): F32.9 - Major depressive disorder, single episode, unspecified Is this a current diagnosis for this admission?: Yes (6) Diabetes mellitus type 2, noninsulin dependent Is this a current diagnosis for this admission?: Yes Plan: Continue insulin coverage with sliding scale (7) Hypertension Qualifiers: Hypertension type: essential hypertension Qualified Code(s): I10 - Es sential (primary) hypertension Is this a current diagnosis for this admission?: Yes Plan: Well-controlled on current regimen (8) Hypothyroidism Qualifiers: Hypothyroidism type: unspecified Qualified Code(s): E03.9 - Hypothyroidism, unspecified Is this a current diagnosis for this admission?: Yes Plan: Continue Synthroid - Time Time Spent with patient: 35 or more minutes
[2018-09-16] MEDS ORDERED: PROPOFOL INJ 200 MG/20 ML VIAL IV ONE (15:32)
[2018-09-16] MEDS ORDERED: FUROSEMIDE INJ/PF 20 MG/2 ML SDV ONE (15:55)
--- NOTE | 2018-09-16 16:36 | RADIOLOGY REPORT (SQ) ---
EXAM DESCRIPTION: CHEST SINGLE VIEW COMPLETED DATE/TIME: 09/16/2018 3:40 pm REASON FOR STUDY: ET TUBE PLACEMENT COMPARISON: Earlier the same day. NUMBER OF VIEWS: One view. TECHNIQUE: Single frontal radiographic image of the chest acquired. LIMITATIONS: None. FINDINGS: LUNGS AND PLEURA: Stable appearance. MEDIASTINUM AND HILAR STRUCTURES: Stable heart size and mediastinal structures. HEART AND VASCULAR STRUCTURES: Stable appearance. SUPPORT DEVICES: Endotracheal tube has been advanced. Tip now lies 4.7 cm above the dee. NG tube remains in place. Tip is not seen but is below the GE junction. BONES: No acute findings. OTHER: No other significant finding. IMPRESSION: Endotracheal tube is been advanced as described. No other interval change. TECHNICAL DOCUMENTATION: JOB ID: [id number] [email or web address]- All Rights Reserved Reading location - IP/workstation name: [email or web address]
[2018-09-16] MEDS: FUROSEMIDE INJ/PF 20 MG/2 ML SDV IV SCH (17:00)
[2018-09-16 17:01] LABS: ARTERIAL BLOOD BASE EXCESS 0.9 mmol/L; ARTERIAL BLOOD H2CO3 1.68 mmol/L (1.05-1.35); ARTERIAL BLOOD HCO3 27.9 mmol/L (20-24); ARTERIAL BLOOD O2 SATURATION 96.8 % (94-98); ARTERIAL BLOOD PCO2 55.9 mmHg (35-45); ARTERIAL BLOOD PH 7.32 (7.35-7.45); ARTERIAL BLOOD PO2 97.5 mmHg (80-100); ARTERIAL BLOOD TOTAL CO2 29.6 mmol/L (21-25)
[2018-09-16 17:02] LABS: ARTERIAL BLOOD FIO2 40%
[2018-09-16] MEDS: PIPERACILLIN SODIUM/TAZOBACTAM 3.375 GM in NORMAL SALINE 100 ML IV SCH ×2 (17:58→23:44)
[2018-09-16] MEDS: ATORVASTATIN CALCIUM 40 MG TABLET NG SCH (21:01)
[2018-09-16] MEDS: ASPIRIN 81 MG TABLET, CHEWABLE NG SCH (21:01)
[2018-09-17] MEDS: IPRATROPIUM/ALBUTEROL 0.5-2.5 MG/3 ML AMPUL NEB SCH ×4 (01:18→20:09)
[2018-09-17] MEDS: FENTANYL CITRATE INJ/PF 100 MCG/2 ML AMPUL IV PRN ×2 (01:51→09:18)
[2018-09-17] MEDS: MIDAZOLAM HCL 50 MG/100 ML RTUINJ IV PRN ×4 (03:16→21:11)
[2018-09-17 04:25] LABS: ARTERIAL BLOOD BASE EXCESS 2.4 mmol/L; ARTERIAL BLOOD FIO2 35%; ARTERIAL BLOOD H2CO3 1.28 mmol/L (1.05-1.35); ARTERIAL BLOOD HCO3 27.1 mmol/L (20-24); ARTERIAL BLOOD PCO2 42.6 mmHg (35-45); ARTERIAL BLOOD PH 7.42 (7.35-7.45); ARTERIAL BLOOD PO2 108.5 mmHg (80-100); ARTERIAL BLOOD TOTAL CO2 28.4 mmol/L (21-25)
[2018-09-17 04:39] LABS: ABSOLUTE LYMPHOCYTES (AUTO) 1.2 10^3/uL (0.5-4.7); ABSOLUTE MONOCYTES (AUTO) 0.5 10^3/uL (0.1-1.4); ABSOLUTE NEUT (AUTO) 12.6 10^3/uL (1.7-8.2); BASOPHILS % (AUTO) 0.1 % (0-2); HEMATOCRIT 31.5 % (36.0-47.0); HEMOGLOBIN 10.6 g/dL (12.0-15.5); LYMPHOCYTES % (AUTO) 8.4 % (13-45); MEAN CORPUSCULAR HEMOGLOBIN 29.6 pg (27.0-33.4); MEAN CORPUSCULAR HGB CONC 33.5 g/dL (32.0-36.0); MEAN CORPUSCULAR VOLUME 88 fl (80-97); MONOCYTES % (AUTO) 3.5 % (3-13); PLATELET COUNT 295 10^3/uL (150-450); RED BLOOD COUNT 3.57 10^6/uL (3.72-5.28); RED CELL DISTRIBUTION WIDTH 16.5 % (11.5-14.0); TOTAL CELLS COUNTED % (AUTO) 100 %; WHITE BLOOD COUNT 14.3 10^3/uL (4.0-10.5)
[2018-09-17 05:01] LABS: ANION GAP 8 (5-19); BLOOD UREA NITROGEN 17 mg/dL (7-20); CALCIUM 8.9 mg/dL (8.4-10.2); CARBON DIOXIDE 28 mmol/L (22-30); CHLORIDE 108 mmol/L (98-107); GLUCOSE 208 mg/dL (75-110); PHOSPHORUS 3.3 mg/dL (2.5-4.5); POTASSIUM 3.8 mmol/L (3.6-5.0)
[2018-09-17] MEDS: INSULIN LISPRO 100 UNIT/ML 3 ML VIAL SUBCUT SCH ×4 (05:15→23:25)
[2018-09-17] MEDS: METHYLPREDNISOLONE INJ 40 MG/1 ML SDV IV SCH ×3 (05:15→21:10)
[2018-09-17] MEDS: LEVOTHYROXINE SODIUM 0.025 MG TABLET NG SCH (05:15)
[2018-09-17] MEDS: PANTOPRAZOLE SODIUM 40 MG PACKET.DR NG SCH (05:15)
[2018-09-17] MEDS: FUROSEMIDE INJ/PF 20 MG/2 ML SDV IV SCH ×2 (05:15→19:02)
[2018-09-17] MEDS: GABAPENTIN 400 MG CAPSULE NG SCH ×3 (05:15→21:09)
[2018-09-17] MEDS: PIPERACILLIN SODIUM/TAZOBACTAM 3.375 GM in NORMAL SALINE 100 ML IV SCH ×4 (05:16→23:25)
[2018-09-17] MEDS: BUDESONIDE NEB 0.5 MG/2 ML AMPUL NEB SCH ×2 (07:46→20:09)
--- NOTE | 2018-09-17 08:31 | RADIOLOGY REPORT (SQ) ---
EXAM DESCRIPTION: CHEST SINGLE VIEW COMPLETED DATE/TIME: 09/17/2018 6:39 am REASON FOR STUDY: copd/resp failure COMPARISON: 09/16/2018 EXAM PARAMETERS: NUMBER OF VIEWS: One view. TECHNIQUE: Single frontal radiographic view of the chest acquired. RADIATION DOSE: NA LIMITATIONS: Leftward patient rotation FINDINGS: LUNGS AND PLEURA: The mild right basilar interstitial prominence. No dense consolidation. No large effusion. No pneumothorax. MEDIASTINUM AND HILAR STRUCTURES: No masses. Contour normal. HEART AND VASCULAR STRUCTURES: Enlarged cardiac silhouette, stable. Aortic atherosclerosis. BONES: No acute findings. HARDWARE: Endotracheal tube tip overlies midthoracic trachea. Enteric tube tip below diaphragm but e xcluded by collimation. OTHER: No other significant finding. IMPRESSION: Stable support lines and tubes. Mild increased right basilar opacities possibly infection, atelectasis or edema. TECHNICAL DOCUMENTATION: JOB ID: [id number] [employer]- All Rights Reserved Reading location - IP/workstation name: [email or web address]
[2018-09-17] MEDS: NICOTINE 21 MG/24 HR PATCH.TD24 TD SCH (09:13)
[2018-09-17] MEDS: SERTRALINE HCL 50 MG TABLET NG SCH (09:14)
[2018-09-17] MEDS: ENOXAPARIN SODIUM INJ 40 MG/0.4 ML DISP.SYRIN SUBCUT SCH (09:14)
[2018-09-17] MEDS: CARVEDILOL 6.25 MG TABLET NG SCH ×2 (09:14→21:09)
[2018-09-17] MEDS: SACUBITRIL/VALSARTAN 24 MG/26 MG TABLET NG SCH ×2 (09:19→21:10)
[2018-09-17] MEDS: METFORMIN HCL 850 MG TABLET NG SCH ×2 (09:19→19:03)
[2018-09-17] MEDS: PROPOFOL 1,000 MG/100 ML INFUS..BTL IV PRN ×2 (10:00→19:01)
[2018-09-17] MEDS ORDERED: PROPOFOL 1,000 MG/100 ML INFUS..BTL IV ONE (10:02)
[2018-09-17] MEDS ORDERED: PROPOFOL 1,000 MG/100 ML INFUS..BTL IV PRN (10:08)
--- NOTE | 2018-09-17 15:51 | PDOC PROGRESS REPORT ---
Subjective Progress Note for:: 09/17/18 Subjective:: No adverse events overnight. Patient remains sedated and intubated. She was febrile yesterday but she has defervesced, yet she has had some elevated temperatures without an outright fever. When she is on minimal ventilator settings, her respiratory rate is in the mid 20s and she is only pulling about 250 to 300 mL tidal volumes. Reason For Visit: ACUTE ON CHRONIC HYPOXIC,HYPERCAPNIC RESPIRATORY Physical Exam Vital Signs: Temp Pulse Resp BP Pulse Ox 99.0 F 75 18 129/85 H 95 09/17/18 14:13 09/17/18 14:14 09/17/18 14:14 09/17/18 14:13 09/17/18 14:14 Intake & Output 09/16/18 09/17/18 09/18/18 06:59 06:59 06:59 Intake Total 673 1691 212 Output Total 845 1465 785 Balance -172 226 -573 Weight 79.9 kg 77.8 kg General appearance: PRESENT: no acute distress, obese, other - Sedated, intubated Respiratory exam: PRESENT: decreased breath sounds, symmetrical. ABSENT: accessory muscle use, crackles, prolonged expiratory phase, rales, rhonchi, stridor, wheezes, tachypnea Cardiovascular exam: PRESENT: RRR - Frequent PVCs on the monitor, +S1, +S2 Pulses: PRESENT: normal carotid pulses Vascular exam: PRESENT: normal capillary refill GI/Abdominal exam: PRESENT: normal bowel sounds, soft. ABSENT: distended, guarding, rebound, tenderness Extremities exam: ABSENT: clubbing, pedal edema Musculoskeletal exam: PRESENT: normal inspection. ABSENT: deformity Neurological exam: PRESENT: other - Sedated, intubated Skin exam: PRESENT: dry, warm Results Laboratory Results: 09/17/18 04:22 09/17/18 04:22 09/16/18 09/17/18 09/17/18 16:45 04:09 04:22 WBC 14.3 H RBC 3.57 L Hgb 10.6 L Hct 31.5 L MCV 88 MCH 29.6 MCHC 33.5 RDW 16.5 H Plt Count 295 Seg Neutrophils % 88.0 H Lymphocytes % 8.4 L Monocytes % 3.5 Eosinophils % 0.0 Basophils % 0.1 Absolute Neutrophils 12.6 H Absolute Lymphocytes 1.2 Absolute Monocytes 0.5 Absolute Eosinophils 0.0 Absolute Basophils 0.0 Carbonic Acid 1.68 H 1.28 HCO3/H2CO3 Ratio 16:1 21:1 ABG pH 7.32 L 7.42 ABG pCO2 55.9 H 42.6 ABG pO2 97.5 108.5 H ABG HCO3 27.9 H 27.1 H ABG O2 Saturation 96.8 98.0 ABG Base Excess 0.9 2.4 FiO2 40% 35% Sodium Potassium Chloride Carbon Dioxide Anion Gap BUN Creatinine Est GFR ( Amer) Est GFR (Non-Af Amer) Glucose Calcium Phosphorus Magnesium 09/17/18 04:22 WBC RBC Hgb Hct MCV MCH MCHC RDW Plt Count Seg Neutrophils % Lymphocytes % Monocytes % Eosinophils % Basophils % Absolute Neutrophils Absolute Lymphocytes Absolute Monocytes Absolute Eosinophils Absolute Basophils Carbonic Acid HCO3/H2CO3 Ratio ABG pH ABG pCO2 ABG pO2 ABG HCO3 ABG O2 Saturation ABG Base Excess FiO2 Sodium 143.8 Potassium 3.8 Chloride 108 H Carbon Dioxide 28 Anion Gap 8 BUN 17 Creatinine 0.62 Est GFR ( Amer) > 60 Est GFR (Non-Af Amer) > 60 Glucose 208 H Calcium 8.9 Phosphorus 3.3 Magnesium 1.9 09/15/18 09/15/18 09/16/18 05:25 05:25 03:31 Creatine Kinase 61 Troponin I 0.016 NT-Pro-B Natriuret Pep 2250 H 7660 H Impressions: Head CT 09/15/18 05:27 IMPRESSION: No acute intracranial abnormality. TECHNICAL DOCUMENTATION: Quality ID # 436: Final reports with documentation of one or more dose reduction techniques (e.g., Automated exposure control, adjustment of the mA and/or kV according to patient size, use of iterative reconstruction technique) copyright 2011 [employer]- All Rights Reserved Chest X-Ray 09/17/18 06:00 IMPRESSION: Stable support lines and tubes. Mild increased right basilar opacities possibly infection, atelectasis or edema. Assessment and Plan - Diagnosis (1) Acute on chronic respiratory failure with hypoxia and hypercapnia Is this a current diagnosis for this admission?: Yes Plan: She did fine on her vent weaning trial yesterday and was doing fine for several hours until she suddenly deteriorated and required reintubation. Today she looks okay, but on minimal settings her respiratory rate is little bit elevated and her tidal volumes are very small, so I am reluctant to take her off the ventilator right now given what happened with her yesterday (2) Acute exacerbation of chronic obstructive pulmonary disease (COPD) Is this a current diagnosis for this admission?: Yes Plan: Continue respiratory support, steroids, antibiotics, and bronchodilators. (3) Chronic congestive heart failure Qualifiers: Heart failure type: unspecified Qualified Code(s): I50.9 - Heart failure, unspecified Is this a current diagnosis for this admission?: Yes Plan: Not acutely exacerbated, continue home medications (4) Coronary artery disease Qualifiers: Coronary Disease-Associated Artery/Lesion type: [place] artery [place] vs. transplanted heart: [place] heart Associated angina: without angina Qualified Code(s): I25.10 - Atherosclerotic heart disease of [place] coronary artery without angina pectoris Is this a current diagnosis for this admission?: Yes Plan: Continuing home medications (5) Depression Qualifiers: Depression Type: unspecified Qualified Code(s): F32.9 - Major depressive disorder, single episode, unspecified Is this a current diagnosis for this admission?: Yes Plan: 09/15/2018-continue sertraline (6) Diabetes mellitus type 2, noninsulin dependent Is this a current diagnosis for this admission?: Yes Plan: Continue insulin coverage with sliding scale (7) Hypertension Qualifiers: Hypertension type: essential hypertension Qualified Code(s): I10 - Essential (primary) hypertension Is this a current diagnosis for this admission?: Yes Plan: Well-controlled on current regimen (8) Hypothyroidism Qualifiers: Hypothyroidism type: unspecified Qualified Code(s): E03.9 - Hypothyroidism, unspecified Is this a current diagnosis for this admission?: Yes Plan: Continue Synthroid - Time Time Spent with patient: 25-34 minutes
[2018-09-17] MEDS: ATORVASTATIN CALCIUM 40 MG TABLET NG SCH (21:09)
[2018-09-17] MEDS: ASPIRIN 81 MG TABLET, CHEWABLE NG SCH (21:09)
[2018-09-18] MEDS: PROPOFOL 1,000 MG/100 ML INFUS..BTL IV PRN ×5 (00:28→20:43)
[2018-09-18] MEDS: IPRATROPIUM/ALBUTEROL 0.5-2.5 MG/3 ML AMPUL NEB SCH ×4 (02:11→20:01)
[2018-09-18 04:01] LABS: ARTERIAL BLOOD BASE EXCESS 3.2 mmol/L; ARTERIAL BLOOD H2CO3 1.26 mmol/L (1.05-1.35); ARTERIAL BLOOD HCO3 27.7 mmol/L (20-24); ARTERIAL BLOOD O2 SATURATION 93.3 % (94-98); ARTERIAL BLOOD PCO2 41.9 mmHg (35-45); ARTERIAL BLOOD PH 7.44 (7.35-7.45); ARTERIAL BLOOD PO2 64.6 mmHg (80-100)
[2018-09-18 04:05] LABS: ARTERIAL BLOOD FIO2 30%
[2018-09-18 04:08] LABS: ABSOLUTE LYMPHOCYTES (AUTO) 1.4 10^3/uL (0.5-4.7); ABSOLUTE MONOCYTES (AUTO) 0.4 10^3/uL (0.1-1.4); ABSOLUTE NEUT (AUTO) 7.7 10^3/uL (1.7-8.2); BASOPHILS % (AUTO) 0.1 % (0-2); HEMATOCRIT 31.7 % (36.0-47.0); HEMOGLOBIN 10.7 g/dL (12.0-15.5); LYMPHOCYTES % (AUTO) 14.7 % (13-45); MEAN CORPUSCULAR HEMOGLOBIN 29.7 pg (27.0-33.4); MEAN CORPUSCULAR HGB CONC 33.8 g/dL (32.0-36.0); MEAN CORPUSCULAR VOLUME 88 fl (80-97); MONOCYTES % (AUTO) 4.6 % (3-13); PLATELET COUNT 301 10^3/uL (150-450); RED BLOOD COUNT 3.62 10^6/uL (3.72-5.28); RED CELL DISTRIBUTION WIDTH 16.4 % (11.5-14.0); SEGMENTED NEUTROPHILS % (AUTO) 80.6 % (42-78); TOTAL CELLS COUNTED % (AUTO) 100 %; WHITE BLOOD COUNT 9.6 10^3/uL (4.0-10.5)
[2018-09-18 04:52] LABS: ANION GAP 7 (5-19); BLOOD UREA NITROGEN 24 mg/dL (7-20); CALCIUM 8.6 mg/dL (8.4-10.2); CARBON DIOXIDE 29 mmol/L (22-30); CHLORIDE 107 mmol/L (98-107); GLUCOSE 209 mg/dL (75-110); POTASSIUM 3.5 mmol/L (3.6-5.0)
[2018-09-18] MEDS: GABAPENTIN 400 MG CAPSULE NG SCH ×3 (05:18→21:58)
[2018-09-18] MEDS: FUROSEMIDE INJ/PF 20 MG/2 ML SDV IV SCH ×2 (05:18→17:26)
[2018-09-18] MEDS: METHYLPREDNISOLONE INJ 40 MG/1 ML SDV IV SCH ×3 (05:18→21:58)
[2018-09-18] MEDS: LEVOTHYROXINE SODIUM 0.025 MG TABLET NG SCH (05:18)
[2018-09-18] MEDS: PANTOPRAZOLE SODIUM 40 MG PACKET.DR NG SCH (05:18)
[2018-09-18] MEDS: PIPERACILLIN SODIUM/TAZOBACTAM 3.375 GM in NORMAL SALINE 100 ML IV SCH ×4 (05:19→23:51)
[2018-09-18] MEDS: INSULIN LISPRO 100 UNIT/ML 3 ML VIAL SUBCUT SCH ×4 (05:19→23:51)
[2018-09-18] MEDS: BUDESONIDE NEB 0.5 MG/2 ML AMPUL NEB SCH ×2 (08:03→20:01)
--- NOTE | 2018-09-18 08:19 | RADIOLOGY REPORT (SQ) ---
EXAM DESCRIPTION: CHEST SINGLE VIEW COMPLETED DATE/TIME: 09/18/2018 7:07 am REASON FOR STUDY: copd/resp failure/pna COMPARISON: 09/17/2018. EXAM PARAMETERS: NUMBER OF VIEWS: One view. TECHNIQUE: Single frontal radiographic view of the chest acquired. RADIATION DOSE: NA LIMITATIONS: None. FINDINGS: LUNGS AND PLEURA: Improved aeration. Faint density in the right lung base has cleared. N o focal infiltrates, masses or pneumothorax. No pleural effusion. MEDIASTINUM AND HILAR STRUCTURES: No masses. Contour normal. HEART AND VASCULAR STRUCTURES: Heart normal in size. Normal vasculature. BONES: No acute findings. HARDWARE: Stable endotracheal tube and nasogastric tube. OTHER: No other significant finding. IMPRESSION: CLEARING OF THE FAINT DENSITY IN THE RIGHT LUNG BASE. NO ACUTE RADIOGRAPHIC FINDING IN THE CHEST. TECHNICAL DOCUMENTATION: JOB ID: [id number] [employer]- All Rights Reserved Reading location - IP/workstation name: [email or web address]
[2018-09-18] MEDS: NICOTINE 21 MG/24 HR PATCH.TD24 TD SCH (10:23)
[2018-09-18] MEDS: MIDAZOLAM HCL 50 MG/100 ML RTUINJ IV PRN ×2 (10:23→11:59)
[2018-09-18] MEDS: SERTRALINE HCL 50 MG TABLET NG SCH (10:24)
[2018-09-18] MEDS: SACUBITRIL/VALSARTAN 24 MG/26 MG TABLET NG SCH ×2 (10:24→21:59)
[2018-09-18] MEDS: METFORMIN HCL 850 MG TABLET NG SCH ×2 (10:24→17:27)
[2018-09-18] MEDS: ENOXAPARIN SODIUM INJ 40 MG/0.4 ML DISP.SYRIN SUBCUT SCH (10:24)
[2018-09-18] MEDS: CARVEDILOL 6.25 MG TABLET NG SCH ×2 (10:24→21:58)
--- NOTE | 2018-09-18 13:46 | PDOC CONSULTATION ---
Consultation Consult Date: 09/15/18 Attending physician:: MARICHUY CHAVES Provider Consulted: KADEEM SULLIVAN Consult reason:: Acute on chronic respiratory failure History of Present Illness Admission Date/PCP: 09/15/18 08:31 History of Present Illness: MONIQUE BAIRD is a 62 year old female presented to the emergency room hypoxic & hypercapnic with altered mental status she was subsequently intubated is now in ICU per history she has been intubated before for hypoxic and hyercapnic respiratory failure due to COPD Past Medical History Cardiac Medical History: Reports: Congestive Heart Failure, Hypertension Pulmonary Medical History: Reports: Chronic Obstructive Pulmonary Disease (COPD), Intubation, Respiratory Failure Psychiatric Medical History: Reports: Tobacco Dependency Traumatic Medical History: Denies: Gunshot Wound, Stab Wound Hematology: Denies: Bleeding Tendencies Infectious Medical History: Denies: HIV Social History Information Source: Outside Facility Records Smoking Status: Unknown if Ever Smoked - Advance Directive Resuscitation Status: Full Code Family History Family History: Other - unknown Parental Family History Reviewed: No Children Family History Reviewed: No Sibling(s) Family History Reviewed.: No Medication/Allergy Home Medications: Albuterol Sulfate [Proair HFA Inhalation Aerosol 8.5 gm MDI] 2 puff IH QIDP PRN #1 hfa.aer.ad 08/11/18 Aspirin [Adult Low Dose Aspirin EC] 81 mg PO DAILY 30 Days #30 tablet. 08/11/18 Atorvastatin Calcium [Lipitor 40 mg Tablet] 40 mg PO QHS 30 Days tablet 08/11 Carvedilol [Coreg 6.25 mg Tablet] 6.25 mg PO Q12 #30 tablet 08/11/18 Cilostazol 50 mg PO BID #60 tablet 08/11/18 Clonazepam [Klonopin 1 mg Tablet] 1 mg PO Q12HP PRN #20 tablet 08/11/18 Fluticasone/Umeclidin/Vilanter [Trelegy 100-62.5-25 Mcg Ellipta 14 Dose/Dpi] 1 puff IH DAILY #1 inhaler 08/11/18 Furosemide [Lasix 20 mg Tablet] 20 mg PO BID #60 tablet 08/11/18 Gabapentin [Neurontin 400 mg Capsule] 400 mg PO Q8 90 Days capsule 08/11/18 Insulin Glargine,Hum.rec.anlog [Lantus Insulin 100 Unit/1 ml 10 ml] 45 units SQ QHS #1 bottle 08/11/18 Ipratropium/Albuterol Sulfate [Combivent Respimat 4 gm Mdi] 1 puff IH QID #1 aer.w.adap 08/11/18 Ipratropium/Albuterol Sulfate [Duoneb 3 ml Ampul] 3 ml NEB RTQIDP PRN #10 vial.neb 08/11/18 Levothyroxine Sodium 25 mcg PO Q6AM #30 tablet 08/11/18 Metformin HCl 850 mg PO BID #60 tablet 08/11/18 Nicotine [Nicoderm 21 mg/24 Hr Transderm Patch] 1 each TD DAILY #30 patch.td24 08/11/18 Omeprazole 20 mg PO BID #60 capsule. 08/11/18 Ondansetron [Zofran Odt 4 mg Tablet] 4 mg PO Q4HP PRN #20 tab.rapdis 08/11/18 Sacubitril/Valsartan [Entresto 24 mg/26 mg Tablet] 1 tab PO BID #60 tablet 08/11/18 Sertraline HCl [Zoloft 50 mg Tablet] 50 mg PO DAILY #30 tablet 08/11/18 Sulfamethoxazole/Trimethoprim [Bactrim Ds Tablet] 1 each PO BID #14 tablet 08/11/18 Albuterol Sulfate [Albuterol Sulfate Hfa] 2 puff IH Q6HP PRN 09/15/18 Aspirin [Ecotrin 81 mg EC Tablet] 81 mg PO DAILY 09/15/18 Atorvastatin Calcium [Lipitor 40 mg Tablet] 40 mg PO QHS 09/15/18 Carvedilol [Coreg 6.25 mg Tablet] 6.25 mg PO Q12 09/15/18 Cilostazol 50 mg PO Q12 09/15/18 Clonazepam [Klonopin 1 mg Tablet] 1 mg PO Q12HP PRN 09/15/18 Fluticasone/Umeclidin/Vilanter [Trelegy 100-62.5-25 Mcg Ellipta 14 Dose/Dpi] 1 puff IH DAILY 09/15/18 Furosemide [Lasix 20 mg Tablet] 20 mg PO QAM 09/15/18 Gabapentin [Neurontin 400 mg Capsule] 400 mg PO Q8 09/15/18 Insulin Glargine,Hum.rec.anlog [Lantus Insulin 100 Unit/1 ml 10 ml] 45 unit SUBCUT QHS 09/15/18 Ipratropium/Albuterol Sulfate [Combivent Respimat 4 gm Mdi] 1 puff IH Q6 09/15/18 Ipratropium/Albuterol Sulfate [Duoneb 3 ml Ampul] 3 ml NEB RTQ6HP PRN 09/15/18 Levothyroxine Sodium [Synthroid 0.025 mg Tablet] 0.025 mg PO Q6AM 09/15/18 Metformin HCl 850 mg PO BID 09/15/18 Omeprazole 20 mg PO BID 09/15/18 Ondansetron [Zofran Odt 4 mg Tablet] 4 mg PO Q4HP PRN 09/15/18 Sacubitril/Valsartan [Entresto 24 mg/26 mg Tablet] 1 tab PO Q12 09/15/18 Sertraline HCl [Zoloft 50 mg Tablet] 50 mg PO DAILY 09/15/18 Allergies/Adverse Reactions: codeine Allergy (Intermediate, Verified 09/18/18 09:35) acetaminophen [From Darvocet-N] Allergy (Verified 09/18/18 09:35) propoxyphene [From Darvocet-N] Allergy (Verified 09/18/18 09:35) artificial sweetner Allergy (Uncoded 09/18/18 09:35) Review of Systems ROS unobtainable: Due to endotracheal tube, Due to mental status Physical Exam Vital Signs: Temp Pulse Resp BP Pulse Ox 18 125/85 99 09/15/18 09:16 09/15/18 09:16 09/15/18 09:16 Intake & Output 09/14/18 09/15/18 09/16/18 06:59 06:59 06:59 Intake Total 200 27 Balance 200 27 Weight 80.6 kg Head exam: PRESENT: atraumatic, normocephalic Eye exam: PRESENT: conjunctiva pale. ABSENT: nystagmus, periorbital swelling, scleral icterus Mouth exam: PRESENT: dry mucosa, neck supple, tongue midline, other - ET tube Neck exam: ABSENT: carotid bruit, full ROM, JVD, lymphadenopathy, meningismus, tenderness, thyromegaly, tracheal deviation, tracheostomy, other Respiratory exam: PRESENT: decreased breath sounds, prolonged expiratory phas, rales, rhonchi, symmetrical, unlabored, wheezes. ABSENT: retraction, stridor Cardiovascular exam: PRESENT: RRR, +S1, +S2, tachycardia Pulses: PRESENT: normal radial pulses GI/Abdominal exam: PRESENT: soft. ABSENT: mass, tenderness Gentrourinary exam: PRESENT: indwelling catheter Extremities exam: ABSENT: calf tenderness, clubbing, joint swelling, pedal edema Musculoskeletal exam: ABSENT: ambulatory, deformity, dislocation Neurological exam: ABSENT: awake Skin exam: PRESENT: dry, warm Results Laboratory Results: 09/15/18 05:25 09/15/18 05:25 09/15/18 09/15/18 09/15/18 05:25 05:25 05:25 WBC 12.5 H RBC 4.00 Hgb 11.7 L Hct 36.8 MCV 92 MCH 29.4 MCHC 31.9 L RDW 16.0 H Plt Count 404 Seg Neutrophils % Not Reportable Lymphocytes % Not Reportable Monocytes % Not Reportable Eosinophils % Not Reportable Basophils % Not Reportable Absolute Neutrophils Not Reportable Absolute Lymphocytes Not Reportable Absolute Monocytes Not Reportable Absolute Eosinophils Not Reportable Absolute Basophils Not Reportable VBG pH 6.86 L* VBG pCO2 155.4 H* VBG HCO3 27.1 VBG Base Excess -9.3 Sodium 143.6 Potassium 4.5 Chloride 106 Carbon Dioxide 25 Anion Gap 13 BUN 11 Creatinine 0.71 Est GFR ( Amer) > 60 Est GFR (Non-Af Amer) > 60 Glucose 258 H Calcium 8.4 Total Bilirubin 0.5 AST 71 H ALT 24 Alkaline Phosphatase 62 Total Protein 6.0 L Albumin 3.6 09/15/18 09/15/18 05:25 05:25 Creatine Kinase 61 Troponin I 0.016 NT-Pro-B Natriuret Pep 2250 H Impressions: Chest X-Ray 09/15/18 05:27 IMPRESSION: Mild worsening bilateral interstitial opacities suggesting edema. Head CT 09/15/18 05:27 IMPRESSION: No acute intracranial abnormality. TECHNICAL DOCUMENTATION: Quality ID # [id number]: Final reports with documentation of one or more dose reduction techniques (e.g., Automated exposure control, adjustment of the mA and/or kV according to patient size, use of iterative reconstruction technique) copyright 2011 [employer]- All Rights Reserved Assessment & Plan - Diagnosis (1) Acute on chronic respiratory failure with hypoxia and hypercapnia Is this a current diagnosis for this admission?: Yes Plan: supplemental/judicious O2 attempt to ventilate to baseline (2) Chronic congestive heart failure Qualifiers: Heart failure type: unspecified Qualified Code(s): I50.9 - Heart failure, unspecified Is this a current diagnosis for this admission?: Yes (3) Hypertension Qualifiers: Hypertension type: essential hypertension Qualified Code(s): I10 - Essential (primary) hypertension Is this a current diagnosis for this admission?: Yes Plan: continue current meds as tolerated (4) COPD (chronic obstructive pulmonary disease) Qualifiers: COPD type: unspecified COPD Qualified Code(s): J44.9 - Chronic obstructive pulmonary disease, unspecified Is this a current diagnosis for this admission?: Yes Plan: duoneb + xopnex prn (5) Hypothyroidism Is this a current diagnosis for this admission?: Yes Plan: check tsh t3 t4 (6) Tobacco dependence Is this a current diagnosis for this admission?: Yes Plan: transdermal nicotine - Time Total Critical Time (Minutes): 65
--- NOTE | 2018-09-18 18:03 | PDOC PROGRESS REPORT ---
Subjective Progress Note for:: 09/18/18 Subjective:: Patient remains sedated and intubated. She still running a low-grade temperature. White blood cell count is come down. Oxygenation remains good. Reason For Visit: ACUTE ON CHRONIC HYPOXIC,HYPERCAPNIC RESPIRATORY Physical Exam Vital Signs: Temp Pulse Resp BP Pulse Ox 100.9 F H 73 12 118/77 94 09/18/18 16:00 09/18/18 16:00 09/18/18 16:00 09/18/18 16:00 09/18/18 16:00 Intake & Output 09/17/18 09/18/18 09/19/18 06:59 06:59 06:59 Intake Total 1691 908 415 Output Total 1465 2130 750 Balance 226 -1222 -335 Weight 77.8 kg 77.1 kg General appearance: PRESENT: no acute distress, obese, other - Sedated, int ubated Respiratory exam: PRESENT: decreased breath sounds, symmetrical. ABSENT: accessory muscle use, crackles, prolonged expiratory phase, rales, rhonchi, stridor, wheezes, tachypnea Cardiovascular exam: PRESENT: RRR - Frequent PVCs on the monitor, +S1, +S2 Pulses: PRESENT: normal carotid pulses Vascular exam: PRESENT: normal capillary refill GI/Abdominal exam: PRESENT: normal bowel sounds, soft. ABSENT: distended, guarding, rebound, tenderness Extremities exam: ABSENT: clubbing, pedal edema Musculoskeletal exam: PRESENT: normal inspection. ABSENT: deformity Neurological exam: PRESENT: other - Sedated, intubated Skin exam: PRESENT: dry, warm Results Laboratory Results: 09/18/18 04:00 09/18/18 04:00 09/18/18 09/18/18 09/18/18 03:53 04:00 04:00 WBC 9.6 RBC 3.62 L Hgb 10.7 L Hct 31.7 L MCV 88 MCH 29.7 MCHC 33.8 RDW 16.4 H Plt Count 301 Seg Neutrophils % 80.6 H Lymphocytes % 14.7 Monocytes % 4.6 Eosinophils % 0.0 Basophils % 0.1 Absolute Neutrophils 7.7 Absolute Lymphocytes 1.4 Absolute Monocytes 0.4 Absolute Eosinophils 0.0 Absolute Basophils 0.0 Carbonic Acid 1.26 HCO3/H2CO3 Ratio 21:1 ABG pH 7.44 ABG pCO2 41.9 ABG pO2 64.6 L ABG HCO3 27.7 H ABG O2 Saturation 93.3 L ABG Base Excess 3.2 FiO2 30% Sodium 143.2 Potassium 3.5 L Chloride 107 Carbon Dioxide 29 Anion Gap 7 BUN 24 H Creatinine 0.69 Est GFR ( Amer) > 60 Est GFR (Non-Af Amer) > 60 Glucose 209 H Calcium 8.6 Magnesium 2.1 Triglycerides 09/18/18 04:00 WBC RBC Hgb Hct MCV MCH MCHC RDW Plt Count Seg Neutrophils % Lymphocytes % Monocytes % Eosinophils % Basophils % Absolute Neutrophils Absolute Lymphocytes Absolute Monocytes Absolute Eosinophils Absolute Basophils Carbonic Acid HCO3/H2CO3 Ratio ABG pH ABG pCO2 ABG pO2 ABG HCO3 ABG O2 Saturation ABG Base Excess FiO2 Sodium Potassium Chloride Carbon Dioxide Anion Gap BUN Creatinine Est GFR ( Amer) Est GFR (Non-Af Amer) Glucose Calcium Magnesium Triglycerides 437 H 09/15/18 09/15/18 09/16/18 05:25 05:25 03:31 Creatine Kinase 61 Troponin I 0.016 NT-Pro-B Natriuret Pep 2250 H 7660 H Impressions: Head CT 09/15/18 05:27 IMPRESSION: No acute intracranial abnormality. TECHNICAL DOCUMENTATION: Quality ID # 436: Final reports with documentation of one or more dose reduction techniques (e.g., Automated exposure control, adjustment of the mA and/or kV according to patient size, use of iterative reconstruction technique) copyright 2011 [employer]- All Rights Reserved Chest X-Ray 09/18/18 06:00 IMPRESSION: CLEARING OF THE FAINT DENSITY IN THE RIGHT LUNG BASE. NO ACUTE RADIOGRAPHIC FINDING IN THE CHEST. Assessment and Plan - Diagnosis (1) Acute on chronic respiratory failure with hypoxia and hypercapnia Is this a current diagnosis for this admission?: Yes Plan: It looks like she aspirated after she was extubated. She is on antibiotics now we continue the current ventilatory support. (2) Acute exacerbation of chronic obstructive pulmonary disease (COPD) Is this a current diagnosis for this admission?: Yes Plan: Continue respiratory support, steroids, antibiotics, and bronchodilators. (3) Chronic congestive heart failure Qualifiers: Heart failure type: unspecified Qualified Code(s): I50.9 - Heart failure, unspecified Is this a current diagnosis for this admission?: Yes Plan: Not acutely exacerbated, continue home medications (4) Coronary artery disease Qualifiers: Coronary Disease-Associated Artery/Lesion type: [place] artery [place] vs. transplanted heart: [place] heart Associated angina: without angina Qualified Code(s): I25.10 - Atherosclerotic heart disease of [place] coronary artery without angina pectoris Is this a current diagnosis for this admission?: Yes Plan: Continuing home medications (5) Depression Qualifiers: Depression Type: unspecified Qualified Code(s): F32.9 - Major depressive disorder, single episode, unspecified Is this a current diagnosis for this admission?: Yes Plan: 09/15/2018-continue sertraline (6) Diabetes mellitus type 2, noninsulin dependent Is this a current diagnosis for this admission?: Yes Plan: Continue insulin coverage with sliding scale (7) Hypertension Qualifiers: Hypertension type: essential hypertension Qualified Code(s): I10 - Essential (primary) hypertension Is this a current diagnosis for this admission?: Yes Plan: Well-controlled on current regimen (8) Hypothyroidism Qualifiers: Hypothyroidism type: unspecified Qualified Code(s): E03.9 - Hypothyroidism, unspecified Is this a current diagnosis for this admission?: Yes Plan: Continue Synthroid - Time Time Spent with patient: 25-34 minutes
[2018-09-18] MEDS: ASPIRIN 81 MG TABLET, CHEWABLE NG SCH (21:58)
[2018-09-18] MEDS: ATORVASTATIN CALCIUM 40 MG TABLET NG SCH (21:59)
[2018-09-19] MEDS: PROPOFOL 1,000 MG/100 ML INFUS..BTL IV PRN ×5 (01:11→21:20)
[2018-09-19] MEDS: IPRATROPIUM/ALBUTEROL 0.5-2.5 MG/3 ML AMPUL NEB SCH ×4 (01:19→20:14)
[2018-09-19 04:12] LABS: ABSOLUTE LYMPHOCYTES (AUTO) 1.4 10^3/uL (0.5-4.7); ABSOLUTE MONOCYTES (AUTO) 0.4 10^3/uL (0.1-1.4); ABSOLUTE NEUT (AUTO) 6.5 10^3/uL (1.7-8.2); BASOPHILS % (AUTO) 0.1 % (0-2); HEMATOCRIT 34.4 % (36.0-47.0); HEMOGLOBIN 11.7 g/dL (12.0-15.5); MEAN CORPUSCULAR HEMOGLOBIN 29.7 pg (27.0-33.4); MEAN CORPUSCULAR VOLUME 88 fl (80-97); MONOCYTES % (AUTO) 4.4 % (3-13); PLATELET COUNT 309 10^3/uL (150-450); RED BLOOD COUNT 3.93 10^6/uL (3.72-5.28); RED CELL DISTRIBUTION WIDTH 16.1 % (11.5-14.0); SEGMENTED NEUTROPHILS % (AUTO) 78.5 % (42-78); TOTAL CELLS COUNTED % (AUTO) 100 %; WHITE BLOOD COUNT 8.2 10^3/uL (4.0-10.5)
[2018-09-19 04:24] LABS: ANION GAP 6 (5-19); BLOOD UREA NITROGEN 27 mg/dL (7-20); CALCIUM 8.4 mg/dL (8.4-10.2); CARBON DIOXIDE 30 mmol/L (22-30); CHLORIDE 105 mmol/L (98-107); GLUCOSE 274 mg/dL (75-110); POTASSIUM 3.3 mmol/L (3.6-5.0)
[2018-09-19 04:28] LABS: ARTERIAL BLOOD BASE EXCESS 3.1 mmol/L; ARTERIAL BLOOD FIO2 35%; ARTERIAL BLOOD H2CO3 1.22 mmol/L (1.05-1.35); ARTERIAL BLOOD HCO3 27.4 mmol/L (20-24); ARTERIAL BLOOD O2 SATURATION 94.5 % (94-98); ARTERIAL BLOOD PCO2 40.6 mmHg (35-45); ARTERIAL BLOOD PH 7.45 (7.35-7.45); ARTERIAL BLOOD PO2 68.9 mmHg (80-100); ARTERIAL BLOOD TOTAL CO2 28.6 mmol/L (21-25)
[2018-09-19] MEDS: PIPERACILLIN SODIUM/TAZOBACTAM 3.375 GM in NORMAL SALINE 100 ML IV SCH ×4 (05:17→23:35)
[2018-09-19] MEDS: POTASSIUM CHLORIDE 20 MEQ/50 ML RTU IV SCH ×2 (05:18→06:55)
[2018-09-19] MEDS: LEVOTHYROXINE SODIUM 0.025 MG TABLET NG SCH (05:19)
[2018-09-19] MEDS: PANTOPRAZOLE SODIUM 40 MG PACKET.DR NG SCH (05:19)
[2018-09-19] MEDS: GABAPENTIN 400 MG CAPSULE NG SCH ×3 (05:19→22:05)
[2018-09-19] MEDS: METHYLPREDNISOLONE INJ 40 MG/1 ML SDV IV SCH ×3 (05:19→22:05)
[2018-09-19] MEDS: FUROSEMIDE INJ/PF 20 MG/2 ML SDV IV SCH ×2 (05:19→18:25)
[2018-09-19] MEDS: INSULIN LISPRO 100 UNIT/ML 3 ML VIAL SUBCUT SCH ×4 (05:21→23:39)
[2018-09-19] MEDS: MIDAZOLAM HCL 50 MG/100 ML RTUINJ IV PRN ×2 (05:31→15:16)
[2018-09-19] MEDS: BUDESONIDE NEB 0.5 MG/2 ML AMPUL NEB SCH ×2 (07:24→20:14)
--- NOTE | 2018-09-19 08:41 | RADIOLOGY REPORT (SQ) ---
EXAM DESCRIPTION: CHEST SINGLE VIEW COMPLETED DATE/TIME: 09/19/2018 6:35 am REASON FOR STUDY: copd COMPARISON: 09/18/2018 NUMBER OF VIEWS: One view. TECHNIQUE: Single frontal radiographic image of the chest acquired. LIMITATIONS: None. FINDINGS: LUNGS AND PLEURA: Stable appearance. MEDIASTINUM AND HILAR STRUCTURES: Stable heart size and mediastinal structures. HEART AND VASCULAR STRUCTURES: Stable appearance. SUPPORT DEVICES: Appropriate location without change. BONES: No acute findings. OTHER: No other significant finding. IMPRESSION: STABLE APPEARANCE OF THE CHEST. SUPPORT DEVICES UNCHANGED. TECHNICAL DOCUMENTATION: JOB ID: [id number] [employer]- All Rights Reserved Reading location - IP/workstation name: [email or web address]
[2018-09-19] MEDS: NICOTINE 21 MG/24 HR PATCH.TD24 TD SCH (09:12)
[2018-09-19] MEDS: CARVEDILOL 6.25 MG TABLET NG SCH ×2 (09:12→22:05)
[2018-09-19] MEDS: METFORMIN HCL 850 MG TABLET NG SCH ×2 (09:13→18:25)
[2018-09-19] MEDS: SACUBITRIL/VALSARTAN 24 MG/26 MG TABLET NG SCH ×2 (09:14→22:05)
[2018-09-19] MEDS: ENOXAPARIN SODIUM INJ 40 MG/0.4 ML DISP.SYRIN SUBCUT SCH (09:14)
[2018-09-19] MEDS: SERTRALINE HCL 50 MG TABLET NG SCH (09:15)
--- NOTE | 2018-09-19 10:56 | PDOC PROGRESS REPORT ---
Subjective Progress Note for:: 09/19/18 Subjective:: No adverse events overnight. Patient remains sedated and intubated. She still running an elevated temperature but it has improved some. Blood pressure has been excellent. When we put her on pressure support, we have to give her a lot of pressure support in order to get her tidal volumes up. We also had to reduce her trigger setting for a breath. Reason For Visit: ACUTE ON CHRONIC HYPOXIC,HYPERCAPNIC RESPIRATORY Physical Exam Vital Signs: Temp Pulse Resp BP Pulse Ox 99.9 F 71 23 H 113/55 L 97 09/19/18 10:00 09/19/18 10:00 09/19/18 10:00 09/19/18 10:00 09/19/18 10:00 Intake & Output 09/18/18 09/19/18 09/20/18 06:59 06:59 06:59 Intake Total 908 1032 68 Output Total 2130 1835 735 Balance -1222 -803 -667 Weight 77.1 kg 76.1 kg General appearance: PRESENT: no acute distress, obese, other - Sedated, intubated Respiratory exam: PRESENT: decreased breath sounds, symmetrical, wheezes. ABSENT: accessory muscle use, crackles, prolonged expiratory phase, rales, rhonchi, stridor, tachypnea Cardiovascular exam: PRESENT: RRR - Frequent PVCs on the monitor, +S1, +S2 Pulses: PRESENT: normal carotid pulses Vascular exam: PRESENT: normal capillary refill GI/Abdominal exam: PRESENT: normal bowel sounds, soft. ABSENT: distended, guarding, rebound, tenderness Extremities exam: ABSENT: clubbing, pedal edema Musculoskeletal exam: PRESENT: normal inspection. ABSENT: deformity Neurological exam: PRESENT: other - Sedated, intubated Skin exam: PRESENT: dry, warm Results Laboratory Results: 09/19/18 04:02 09/19/18 04:02 09/19/18 09/19/18 09/19/18 04:02 04:02 04:14 WBC 8.2 RBC 3.93 Hgb 11.7 L Hct 34.4 L MCV 88 MCH 29.7 MCHC 34.0 RDW 16.1 H Plt Count 309 Seg Neutrophils % 78.5 H Lymphocytes % 17.0 Monocytes % 4.4 Eosinophils % 0.0 Basophils % 0.1 Absolute Neutrophils 6.5 Absolute Lymphocytes 1.4 Absolute Monocytes 0.4 Absolute Eosinophils 0.0 Absolute Basophils 0.0 Carbonic Acid 1.22 HCO3/H2CO3 Ratio 22:1 ABG pH 7.45 ABG pCO2 40.6 ABG pO2 68.9 L ABG HCO3 27.4 H ABG O2 Saturation 94.5 ABG Base Excess 3.1 FiO2 35% Sodium 141.3 Potassium 3.3 L Chloride 105 Carbon Dioxide 30 Anion Gap 6 BUN 27 H Creatinine 0.65 Est GFR ( Amer) > 60 Est GFR (Non-Af Amer) > 60 Glucose 274 H Calcium 8.4 Magnesium 2.1 09/15/18 09/15/18 09/16/18 05:25 05:25 03:31 Creatine Kinase 61 Troponin I 0.016 NT-Pro-B Natriuret Pep 2250 H 7660 H Impressions: Head CT 09/15/18 05:27 IMPRESSION: No acute intracranial abnormality. TECHNICAL DOCUMENTATION: Quality ID # 436: Final reports with documentation of one or more dose reduction techniques (e.g., Automated exposure control, adjustment of the mA and/or kV according to patient size, use of iterative reconstruction technique) copyright 2011 [employer]- All Rights Reserved Chest X-Ray 09/19/18 06:00 IMPRESSION: STABLE APPEARANCE OF THE CHEST. SUPPORT DEVICES UNCHANGED. Assessment and Plan - Diagnosis (1) Acute on chronic respiratory failure with hypoxia and hypercapnia Is this a current diagnosis for this admission?: Yes Plan: It looks like she aspirated after she was extubated. She is on antibiotics now we continue the current ventilatory support. We will continue attempts to wean from the ventilator. We will start tube feeds today. (2) Acute exacerbation of chronic obstructive pulmonary disease (COPD) Is this a current diagnosis for this admission?: Yes Plan: Continue respiratory support, steroids, antibiotics, and bronchodilators. (3) Chronic congestive heart failure Qualifiers: Heart failure type: unspecified Qualified Code(s): I50.9 - Heart failure, unspecified Is this a current diagnosis for this admission?: Yes Plan: Not acutely exacerbated, continue home medications (4) Coronary artery disease Qualifiers: Coronary Disease-Associated Artery/Lesion type: [place] artery [place] vs. transplanted heart: [place] heart Associated angina: without angina Qualified Code(s): I25.10 - Atherosclerotic heart disease of [place] coronary artery without angina pectoris Is this a current diagnosis for this admission?: Yes Plan: Continuing home medications (5) Depression Qualifiers: Depression Type: unspecified Qualified Code(s): F32.9 - Major depressive disorder, single episode, unspecified Is this a current diagnosis for this admission?: Yes Plan: 09/15/2018-continue sertraline (6) Diabetes mellitus type 2, noninsulin dependent Is this a current diagnosis for this admission?: Yes Plan: Continue insulin coverage with sliding scale (7) Hypertension Qualifiers: Hypertension type: essential hypertension Qualified Code(s): I10 - Essential (primary) hypertension Is this a current diagnosis for this admission?: Yes Plan: Well-controlled on current regimen (8) Hypothyroidism Qualifiers: Hypothyroidism type: unspecified Qualified Code(s): E03.9 - Hypothyroidism, unspecified Is this a current diagnosis for this admission?: Yes Plan: Continue Synthroid - Time Time Spent with patient: 25-34 minutes
[2018-09-19] MEDS: FENTANYL CITRATE INJ/PF 100 MCG/2 ML AMPUL IV PRN ×2 (16:03→22:05)
[2018-09-19] MEDS: ASPIRIN 81 MG TABLET, CHEWABLE NG SCH (22:05)
[2018-09-19] MEDS: ATORVASTATIN CALCIUM 40 MG TABLET NG SCH (22:05)
[2018-09-20] MEDS: PROPOFOL 1,000 MG/100 ML INFUS..BTL IV PRN ×4 (01:05→18:29)
[2018-09-20] MEDS: IPRATROPIUM/ALBUTEROL 0.5-2.5 MG/3 ML AMPUL NEB SCH ×4 (02:14→20:08)
[2018-09-20 04:19] LABS: ANION GAP 8 (5-19); BLOOD UREA NITROGEN 26 mg/dL (7-20); CALCIUM 8.6 mg/dL (8.4-10.2); CARBON DIOXIDE 29 mmol/L (22-30); CHLORIDE 104 mmol/L (98-107); GLUCOSE 241 mg/dL (75-110); POTASSIUM 3.7 mmol/L (3.6-5.0)
[2018-09-20 04:39] LABS: ARTERIAL BLOOD BASE EXCESS 5.7 mmol/L; ARTERIAL BLOOD H2CO3 1.29 mmol/L (1.05-1.35); ARTERIAL BLOOD O2 SATURATION 95.2 % (94-98); ARTERIAL BLOOD PCO2 42.8 mmHg (35-45); ARTERIAL BLOOD PH 7.46 (7.35-7.45); ARTERIAL BLOOD PO2 71.8 mmHg (80-100); ARTERIAL BLOOD TOTAL CO2 31.3 mmol/L (21-25)
[2018-09-20 04:44] LABS: ARTERIAL BLOOD FIO2 35%
[2018-09-20] MEDS: MIDAZOLAM HCL 50 MG/100 ML RTUINJ IV PRN ×2 (05:35→21:51)
[2018-09-20] MEDS: METHYLPREDNISOLONE INJ 40 MG/1 ML SDV IV SCH ×3 (05:36→21:47)
[2018-09-20] MEDS: FUROSEMIDE INJ/PF 20 MG/2 ML SDV IV SCH ×2 (05:36→17:15)
[2018-09-20] MEDS: GABAPENTIN 400 MG CAPSULE NG SCH ×3 (05:36→21:49)
[2018-09-20] MEDS: INSULIN LISPRO 100 UNIT/ML 3 ML VIAL SUBCUT SCH ×3 (05:36→17:29)
[2018-09-20] MEDS: LEVOTHYROXINE SODIUM 0.025 MG TABLET NG SCH (05:36)
[2018-09-20] MEDS: PIPERACILLIN SODIUM/TAZOBACTAM 3.375 GM in NORMAL SALINE 100 ML IV SCH ×3 (05:37→17:27)
[2018-09-20] MEDS: PANTOPRAZOLE SODIUM 40 MG PACKET.DR NG SCH (05:37)
[2018-09-20] MEDS: BUDESONIDE NEB 0.5 MG/2 ML AMPUL NEB SCH ×2 (08:33→20:08)
[2018-09-20] MEDS ORDERED: VANCOMYCIN HCL 0 MG in DEXTROSE 5%-WATER 250 ML IV NR (10:15)
[2018-09-20] MEDS: CARVEDILOL 6.25 MG TABLET NG SCH ×2 (10:29→21:49)
[2018-09-20] MEDS: ENOXAPARIN SODIUM INJ 40 MG/0.4 ML DISP.SYRIN SUBCUT SCH (10:29)
[2018-09-20] MEDS: SERTRALINE HCL 50 MG TABLET NG SCH (10:29)
[2018-09-20] MEDS: SACUBITRIL/VALSARTAN 24 MG/26 MG TABLET NG SCH ×2 (10:30→21:49)
[2018-09-20] MEDS: NICOTINE 21 MG/24 HR PATCH.TD24 TD SCH (10:30)
[2018-09-20] MEDS: METFORMIN HCL 850 MG TABLET NG SCH ×2 (10:30→17:15)
[2018-09-20] MEDS: VANCOMYCIN HCL 1,000 MG in DEXTROSE 5%-WATER 250 ML IV SCH ×2 (12:30→21:47)
--- NOTE | 2018-09-20 15:03 | PDOC PROGRESS REPORT ---
Subjective Progress Note for:: 09/20/18 Subjective:: No adverse events overnight. Patient has run a low-grade fever for the past couple of days. White blood cell count has been normal. We got her on pressure support with a high pressure to help keep up per minute ventilation and her tidal volumes in this morning she was tolerating it fairly well. When her sedation is lightened, she responds appropriately to verbal commands. Reason For Visit: ACUTE ON CHRONIC HYPOXIC,HYPERCAPNIC RESPIRATORY Physical Exam Vital Signs: Temp Pulse Resp BP Pulse Ox 99.5 F 64 18 114/60 97 09/20/18 14:48 09/20/18 13:45 09/20/18 14:48 09/20/18 14:48 09/20/18 14:48 Intake & Output 09/19/18 09/20/18 09/21/18 06:59 06:59 06:59 Intake Total 1132 1129 120 Output Total 1835 1945 965 Balance -703 -816 -845 Weight 76.1 kg 76.7 kg General appearance: PRESENT: no acute distress, obese, other - Sedated, intubated Respiratory exam: PRESENT: decreased breath sounds, symmetrical, wheezes. ABSENT: accessory muscle use, crackles, prolonged expiratory phase, rales, rhonchi, stridor, tachypnea Cardiovascular exam: PRESENT: RRR - Frequent PVCs on the monitor, +S1, +S2 Pulses: PRESENT: normal carotid pulses Vascular exam: PRESENT: normal capillary refill GI/Abdominal exam: PRESENT: normal bowel sounds, soft. ABSENT: distended, guarding, rebound, tenderness Extremities exam: ABSENT: clubbing, pedal edema Musculoskeletal exam: PRESENT: normal inspection. ABSENT: deformity Neurological exam: PRESENT: other - Sedated, intubated Skin exam: PRESENT: dry, warm Results Laboratory Results: 09/19/18 04:02 09/20/18 03:41 09/20/18 09/20/18 03:41 04:28 Carbonic Acid 1.29 HCO3/H2CO3 Ratio 23:1 ABG pH 7.46 H ABG pCO2 42.8 ABG pO2 71.8 L ABG HCO3 30.0 H ABG O2 Saturation 95.2 ABG Base Excess 5.7 FiO2 35% Sodium 141.3 Potassium 3.7 Chloride 104 Carbon Dioxide 29 Anion Gap 8 BUN 26 H Creatinine 0.62 Est GFR ( Amer) > 60 Est GFR (Non-Af Amer) > 60 Glucose 241 H Calcium 8.6 09/15/18 12:10 Blood Blood Culture - Final NO GROWTH IN 5 DAYS 09/15/18 11:06 Blood Blood Culture - Final NO GROWTH IN 5 DAYS 09/15/18 09/15/18 09/16/18 05:25 05:25 03:31 Creatine Kinase 61 Troponin I 0.016 NT-Pro-B Natriuret Pep 2250 H 7660 H Impressions: Head CT 09/15/18 05:27 IMPRESSION: No acute intracranial abnormality. TECHNICAL DOCUMENTATION: Quality ID # 436: Final reports with documentation of one or more dose reduction techniques (e.g., Automated exposure control, adjustment of the mA and/or kV according to patient size, use of iterative reconstruction technique) copyright 2011 [employer]- All Rights Reserved Chest X-Ray 09/19/18 06:00 IMPRESSION: STABLE APPEARANCE OF THE CHEST. SUPPORT DEVICES UNCHANGED. Assessment and Plan - Diagnosis (1) Acute on chronic respiratory failure with hypoxia and hypercapnia Is this a current diagnosis for this admission?: Yes Plan: It looks like she aspirated after she was extubated. She is on antibiotics now we continue the current ventilatory support. We will continue attempts to wean from the ventilator. We will be unlikely to extubate her this weekend, but we will anticipate that if she continues on her current course we can do so on Saturday morning. Tube feeds have been started and are being titrated to goal. (2) Acute exacerbation of chronic obstructive pulmonary disease (COPD) Is this a current diagnosis for this admission?: Yes Plan: Continue respiratory support, steroids, antibiotics, and bronchodilators. (3) Chronic congestive heart failure Qualifiers: Heart failure type: unspecified Qualified Code(s): I50.9 - Heart failure, unspecified Is this a current diagnosis for this admission?: Yes Plan: Not acutely exacerbated, continue home medications (4) Coronary artery disease Qualifiers: Coronary Disease-Associated Artery/Lesion type: [place] artery [place] vs. transplanted heart: [place] heart Associated angina: without angina Qualified Code(s): I25.10 - Atherosclerotic heart disease of [place] coronary artery without angina pectoris Is this a current diagnosis for this admission?: Yes Plan: Continuing home medications (5) Depression Qualifiers: Depression Type: unspecified Qualified Code(s): F32.9 - Major depressive disorder, single episode, unspecified Is this a current diagnosis for this admission?: Yes Plan: 09/15/2018-continue sertraline (6) Diabetes mellitus type 2, noninsulin dependent Is this a current diagnosis for this admission?: Yes Plan: Continue insulin coverage with sliding scale (7) Hypertension Qualifiers: Hypertension type: essential hypertension Qualified Code(s): I10 - Es sential (primary) hypertension Is this a current diagnosis for this admission?: Yes Plan: Well-controlled on current regimen (8) Hypothyroidism Qualifiers: Hypothyroidism type: unspecified Qualified Code(s): E03.9 - Hypothyroidism, unspecified Is this a current diagnosis for this admission?: Yes Plan: Continue Synthroid - Time Time Spent with patient: 25-34 minutes
[2018-09-20] MEDS: ASPIRIN 81 MG TABLET, CHEWABLE NG SCH (21:49)
[2018-09-20] MEDS: ATORVASTATIN CALCIUM 40 MG TABLET NG SCH (21:49)
[2018-09-21] MEDS: PIPERACILLIN SODIUM/TAZOBACTAM 3.375 GM in NORMAL SALINE 100 ML IV SCH ×5 (00:05→23:29)
[2018-09-21] MEDS: INSULIN LISPRO 100 UNIT/ML 3 ML VIAL SUBCUT SCH ×5 (00:06→23:29)
[2018-09-21] MEDS: IBUPROFEN 800 MG TABLET NG PRN ×2 (01:15→17:07)
[2018-09-21] MEDS: LORAZEPAM INJ 2 MG/1 ML VIAL IV PRN (01:20)
[2018-09-21] MEDS: IPRATROPIUM/ALBUTEROL 0.5-2.5 MG/3 ML AMPUL NEB SCH ×4 (02:05→19:41)
[2018-09-21 03:40] LABS: ABSOLUTE LYMPHOCYTES (AUTO) 1.6 10^3/uL (0.5-4.7); ABSOLUTE MONOCYTES (AUTO) 0.5 10^3/uL (0.1-1.4); ABSOLUTE NEUT (AUTO) 7.5 10^3/uL (1.7-8.2); BASOPHILS % (AUTO) 0.2 % (0-2); HEMATOCRIT 37.1 % (36.0-47.0); HEMOGLOBIN 12.4 g/dL (12.0-15.5); LYMPHOCYTES % (AUTO) 16.9 % (13-45); MEAN CORPUSCULAR HEMOGLOBIN 29.3 pg (27.0-33.4); MEAN CORPUSCULAR HGB CONC 33.5 g/dL (32.0-36.0); MEAN CORPUSCULAR VOLUME 87 fl (80-97); MONOCYTES % (AUTO) 4.8 % (3-13); PLATELET COUNT 351 10^3/uL (150-450); RED BLOOD COUNT 4.24 10^6/uL (3.72-5.28); RED CELL DISTRIBUTION WIDTH 15.4 % (11.5-14.0); SEGMENTED NEUTROPHILS % (AUTO) 78.1 % (42-78); TOTAL CELLS COUNTED % (AUTO) 100 %; WHITE BLOOD COUNT 9.6 10^3/uL (4.0-10.5)
[2018-09-21 04:09] LABS: ARTERIAL BLOOD BASE EXCESS 3.3 mmol/L; ARTERIAL BLOOD H2CO3 1.24 mmol/L (1.05-1.35); ARTERIAL BLOOD HCO3 27.7 mmol/L (20-24); ARTERIAL BLOOD O2 SATURATION 95.9 % (94-98); ARTERIAL BLOOD PCO2 41.3 mmHg (35-45); ARTERIAL BLOOD PH 7.44 (7.35-7.45); ARTERIAL BLOOD PO2 77.3 mmHg (80-100); ARTERIAL BLOOD TOTAL CO2 28.9 mmol/L (21-25)
[2018-09-21 04:13] LABS: ARTERIAL BLOOD FIO2 35 FLOW RATE
[2018-09-21 04:19] LABS: ANION GAP 9 (5-19); BLOOD UREA NITROGEN 27 mg/dL (7-20); CALCIUM 8.4 mg/dL (8.4-10.2); CARBON DIOXIDE 28 mmol/L (22-30); CHLORIDE 102 mmol/L (98-107); GLUCOSE 253 mg/dL (75-110); POTASSIUM 3.5 mmol/L (3.6-5.0)
[2018-09-21] MEDS: PROPOFOL 1,000 MG/100 ML INFUS..BTL IV PRN ×3 (04:22→20:30)
[2018-09-21 04:35] LABS: TRIGLYCERIDES 975 mg/dL (<150)
[2018-09-21] MEDS: MIDAZOLAM HCL 50 MG/100 ML RTUINJ IV PRN ×2 (06:27→23:31)
[2018-09-21] MEDS: GABAPENTIN 400 MG CAPSULE NG SCH ×3 (06:29→22:09)
[2018-09-21] MEDS: METHYLPREDNISOLONE INJ 40 MG/1 ML SDV IV SCH (06:29)
[2018-09-21] MEDS: LEVOTHYROXINE SODIUM 0.025 MG TABLET NG SCH (06:29)
[2018-09-21] MEDS: PANTOPRAZOLE SODIUM 40 MG PACKET.DR NG SCH (06:30)
[2018-09-21] MEDS: FUROSEMIDE INJ/PF 20 MG/2 ML SDV IV SCH ×2 (06:30→17:07)
[2018-09-21] MEDS: BUDESONIDE NEB 0.5 MG/2 ML AMPUL NEB SCH ×2 (08:38→19:41)
--- NOTE | 2018-09-21 08:51 | RADIOLOGY REPORT (SQ) ---
EXAM DESCRIPTION: CHEST SINGLE VIEW COMPLETED DATE/TIME: 09/21/2018 7:08 am REASON FOR STUDY: copd COMPARISON: 09/19/2018 EXAM PARAMETERS: NUMBER OF VIEWS: One view TECHNIQUE: Single frontal radiograph of the chest. RADIATION DOSE: N/A LIMITATIONS: None. FINDINGS: TEMPORARY SUPPORT DEVICES:ETT in expected location. NG tube courses below the deisi-diaphr agm in to the stomach. LUNGS AND PLEURA: No opacities. No masses. No effusions. No pneumothorax. MEDIASTINUM AND HILAR STRUCTURES: No masses. Contour normal. HEART AND VASCULAR STRUCTURES: Heart size normal. Normal vascularity. Aorta normal for age BONES: No acute findings. OTHER: No other significant finding. IMPRESSION: NO ACUTE RADIOGRAPHIC FINDING IN THE CHEST. SUPPORT DEVICE(S) IN EXPECTED LOCATIONS. TECHNICAL DOCUMENTATION: JOB ID: [id number] [employer]- All Rights Reserved Reading location - IP/workstation name: [email or web address]
[2018-09-21] MEDS: METFORMIN HCL 850 MG TABLET NG SCH ×2 (11:48→17:08)
[2018-09-21] MEDS: NICOTINE 21 MG/24 HR PATCH.TD24 TD SCH (11:49)
[2018-09-21] MEDS: ENOXAPARIN SODIUM INJ 40 MG/0.4 ML DISP.SYRIN SUBCUT SCH (11:49)
[2018-09-21] MEDS: SERTRALINE HCL 50 MG TABLET NG SCH (11:49)
[2018-09-21] MEDS: CARVEDILOL 6.25 MG TABLET NG SCH ×2 (11:50→23:23)
[2018-09-21] MEDS: SACUBITRIL/VALSARTAN 24 MG/26 MG TABLET NG SCH (11:51)
[2018-09-21] MEDS: VANCOMYCIN HCL 1,000 MG in DEXTROSE 5%-WATER 250 ML IV SCH ×2 (11:52→22:07)
[2018-09-21] MEDS ORDERED: METHYLPREDNISOLONE INJ 40 MG/1 ML SDV IV SCH (14:00)
--- NOTE | 2018-09-21 16:48 | PDOC PROGRESS REPORT ---
Subjective Progress Note for:: 09/21/18 Subjective:: No adverse events overnight. Patient remains sedated and intubated. She still wheezing and running a bit of a temperature. Cultures have been negative. Reason For Visit: ACUTE ON CHRONIC HYPOXIC,HYPERCAPNIC RESPIRATORY Physical Exam Vital Signs: Temp Pulse Resp BP Pulse Ox 100.2 F 76 21 H 122/53 L 100 09/21/18 14:00 09/21/18 14:21 09/21/18 14:21 09/21/18 14:00 09/21/18 14:21 Intake & Output 09/20/18 09/21/18 09/22/18 06:59 06:59 06:59 Intake Total 1129 1436 75 Output Total 4486 0625 485 Balance -816 -469 -410 Weight 76.7 kg 76.5 kg General appearance: PRESENT: no acute distress, obese, other - Sedated, intubated Respiratory exam: PRESENT: decreased breath sounds, symmetrical, wheezes. ABSENT: accessory muscle use, crackles, prolonged expiratory phase, rales, rhonchi, stridor, tachypnea Cardiovascular exam: PRESENT: RRR - Frequent PVCs on the monitor, +S1, +S2 Pulses: PRESENT: normal carotid pulses Vascular exam: PRESENT: normal capillary refill GI/Abdominal exam: PRESENT: normal bowel sounds, soft. ABSENT: distended, guarding, rebound, tenderness Extremities exam: ABSENT: clubbing, pedal edema Musculoskeletal exam: PRESENT: normal inspection. ABSENT: deformity Neurological exam: PRESENT: other - Sedated, intubated Skin exam: PRESENT: dry, warm Results Laboratory Results: 09/21/18 03:31 09/21/18 03:31 09/21/18 09/21/18 09/21/18 03:31 03:31 03:53 WBC 9.6 RBC 4.24 Hgb 12.4 Hct 37.1 MCV 87 MCH 29.3 MCHC 33.5 RDW 15.4 H Plt Count 351 Seg Neutrophils % 78.1 H Lymphocytes % 16.9 Monocytes % 4.8 Eosinophils % 0.0 Basophils % 0.2 Absolute Neutrophils 7.5 Absolute Lymphocytes 1.6 Absolute Monocytes 0.5 Absolute Eosinophils 0.0 Absolute Basophils 0.0 Carbonic Acid 1.24 HCO3/H2CO3 Ratio 22:1 ABG pH 7.44 ABG pCO2 41.3 ABG pO2 77.3 L ABG HCO3 27.7 H ABG O2 Saturation 95.9 ABG Base Excess 3.3 FiO2 35 FLOW RATE Sodium 139.2 Potassium 3.5 L Chloride 102 Carbon Dioxide 28 Anion Gap 9 BUN 27 H Creatinine 0.57 Est GFR ( Amer) > 60 Est GFR (Non-Af Amer) > 60 Glucose 253 H Calcium 8.4 Magnesium 2.0 Triglycerides 975 H 09/15/18 09/15/18 09/16/18 05:25 05:25 03:31 Creatine Kinase 61 Troponin I 0.016 NT-Pro-B Natriuret Pep 2250 H 7660 H Impressions: Head CT 09/15/18 05:27 IMPRESSION: No acute intracranial abnormality. TECHNICAL DOCUMENTATION: Quality ID # 436: Final reports with documentation of one or more dose reduction techniques (e.g., Automated exposure control, adjustment of the mA and/or kV according to patient size, use of iterative reconstruction technique) copyright 2011 [employer]- All Rights Reserved Chest X-Ray 09/21/18 06:00 IMPRESSION: NO ACUTE RADIOGRAPHIC FINDING IN THE CHEST. SUPPORT DEVICE(S) IN EXPECTED LOCATIONS. Assessment and Plan - Diagnosis (1) Acute on chronic respiratory failure with hypoxia and hypercapnia Is this a current diagnosis for this admission?: Yes Plan: It looks like she aspirated after she was extubated. She is on antibiotics now we continue the current ventilatory support. We will continue attempts to wean from the ventilator. We will be unlikely to extubate her this weekend, but we will anticipate that if she continues on her current course we can do so on Saturday morning. Tube feeds have been started and are being titrated to goal. She does well while she is on the ventilator, will making attempts to wean her, but she does not inspire a lot of confidence yet that she is going to be able to be successfully extubated. We have increased her steroids today, and I have ordered a CT scan of her chest with contrast. (2) Acute exacerbation of chronic obstructive pulmonary disease (COPD) Is this a current diagnosis for this admission?: Yes Plan: Continue respiratory support, steroids, antibiotics, and bronchodilators. (3) Chronic congestive heart failure Qualifiers: Heart failure type: unspecified Qualified Code(s): I50.9 - Heart failure, unspecified Is this a current diagnosis for this admission?: Yes Plan: Not acutely exacerbated, continue home medications (4) Coronary artery disease Qualifiers: Coronary Disease-Associated Artery/Lesion type: [place] artery [place] vs. transplanted heart: [place] heart Associated angina: without angina Qualified Code(s): I25.10 - Atherosclerotic heart disease of [place] coronary artery without angina pectoris Is this a current diagnosis for this admission?: Yes Plan: Continuing home medications (5) Depression Qualifiers: Depression Type: unspecified Qualified Code(s): F32.9 - Major depressive disorder, single episode, unspecified Is this a current diagnosis for this admission?: Yes Plan: 09/15/2018-continue sertraline (6) Diabetes mellitus type 2, noninsulin dependent Is this a current diagnosis for this admission?: Yes Plan: Continue insulin coverage with sliding scale (7) Hypertension Qualifiers: Hypertension type: essential hypertension Qualified Code(s): I10 - Essential (primary) hypertension Is this a current diagnosis for this admission?: Yes Plan: Well-controlled on current regimen (8) Hypothyroidism Qualifiers: Hypothyroidism type: unspecified Qualified Code(s): E03.9 - Hypothyroidism, unspecified Is this a current diagnosis for this admission?: Yes Plan: Continue Synthroid - Time Time Spent with patient: 35 or more minutes
[2018-09-21] MEDS: METHYLPREDNISOLONE INJ 125 MG/2 ML SDV IV SCH ×2 (17:08→22:08)
[2018-09-21 22:05] LABS: VANCOMYCIN,TROUGH 17.9 ug/mL (5.0-20.0)
[2018-09-21] MEDS: ATORVASTATIN CALCIUM 40 MG TABLET NG SCH (22:09)
[2018-09-21] MEDS: ASPIRIN 81 MG TABLET, CHEWABLE NG SCH (22:09)
[2018-09-22] MEDS: SACUBITRIL/VALSARTAN 24 MG/26 MG TABLET NG SCH ×3 (00:12→21:24)
[2018-09-22] MEDS: IPRATROPIUM/ALBUTEROL 0.5-2.5 MG/3 ML AMPUL NEB SCH ×4 (02:14→20:12)
--- NOTE | 2018-09-22 02:22 | RADIOLOGY REPORT (SQ) ---
CLINICAL HISTORY: respiratory failure, fever of unknown origin COMPARISON: None. TECHNIQUE: CT CHEST WITH IV CONTRAST on 09/21/2018 12:00 AM CDT. MIPS reconstructions were generated. This exam was performed according to our departmental dose-optimization program, which includes automated exposure control, adjustment of the mA and/or kV according to patient size and/or use of iterative reconstruction technique. MIP images were generated. FINDINGS: Thoracic aorta is normal in course and caliber without aneurysm or dissection. Pulmonary arteries are adequately opacified without acute or chronic filling defects. The heart is normal in size. There is no pericardial effusion. Intrathoracic lymph nodes are not enlarged. Endotracheal tube tip is in the midtrachea. NG tube tip is in the stomach. There is no pleural effusion, pleural thickening or pneumothorax. Central airways are patent. There is minimal bibasilar atelectasis. There are no acute abnormalities within the limited images of the upper abdomen. There are no acute osseous findings. No suspicious bony lesions. IMPRESSION: Clear lungs.
[2018-09-22 04:08] LABS: ANION GAP 10 (5-19); BLOOD UREA NITROGEN 26 mg/dL (7-20); CALCIUM 8.6 mg/dL (8.4-10.2); CARBON DIOXIDE 26 mmol/L (22-30); CHLORIDE 102 mmol/L (98-107); GLUCOSE 212 mg/dL (75-110); POTASSIUM 3.1 mmol/L (3.6-5.0)
[2018-09-22] MEDS ORDERED: POTASSIUM CHLORIDE 20 MEQ PACKET NG ONE (04:45)
[2018-09-22] MEDS: GABAPENTIN 400 MG CAPSULE NG SCH ×3 (05:42→21:24)
[2018-09-22] MEDS: FUROSEMIDE INJ/PF 20 MG/2 ML SDV IV SCH ×2 (05:42→17:37)
[2018-09-22] MEDS: LEVOTHYROXINE SODIUM 0.025 MG TABLET NG SCH (05:42)
[2018-09-22] MEDS: PANTOPRAZOLE SODIUM 40 MG PACKET.DR NG SCH (05:43)
[2018-09-22] MEDS: INSULIN LISPRO 100 UNIT/ML 3 ML VIAL SUBCUT SCH ×3 (05:43→17:51)
[2018-09-22] MEDS: METHYLPREDNISOLONE INJ 125 MG/2 ML SDV IV SCH ×3 (05:43→21:24)
[2018-09-22] MEDS: PIPERACILLIN SODIUM/TAZOBACTAM 3.375 GM in NORMAL SALINE 100 ML IV SCH ×3 (05:43→17:37)
[2018-09-22] MEDS: BUDESONIDE NEB 0.5 MG/2 ML AMPUL NEB SCH ×2 (08:07→20:12)
[2018-09-22] MEDS: FENTANYL CITRATE INJ/PF 100 MCG/2 ML AMPUL IV PRN (09:17)
[2018-09-22] MEDS: NICOTINE 21 MG/24 HR PATCH.TD24 TD SCH (09:25)
[2018-09-22] MEDS: SERTRALINE HCL 50 MG TABLET NG SCH (09:25)
[2018-09-22] MEDS: CARVEDILOL 6.25 MG TABLET NG SCH ×2 (09:26→21:24)
[2018-09-22] MEDS: METFORMIN HCL 850 MG TABLET NG SCH ×2 (09:26→17:38)
[2018-09-22] MEDS: ENOXAPARIN SODIUM INJ 40 MG/0.4 ML DISP.SYRIN SUBCUT SCH (09:27)
[2018-09-22] MEDS: VANCOMYCIN HCL 1,000 MG in DEXTROSE 5%-WATER 250 ML IV SCH ×2 (09:32→21:23)
[2018-09-22] MEDS ORDERED: DEXAMETHASONE SOD PHOSPHATE INJ 4 MG/1 ML VIAL ONE (10:01)
[2018-09-22] MEDS: ONDANSETRON HCL INJ/PF 4 MG/2 ML SDV IV PRN (17:37)
--- NOTE | 2018-09-22 17:44 | PDOC PROGRESS REPORT ---
Subjective Progress Note for:: 09/22/18 Subjective:: No adverse events overnight. We did a weaning trial on her this morning and facility fairly well. Dr. Montiel saw her and we discussed her case afterwards. We decided to extubate. She was successfully extubated and has done well thus far. She was sitting up in bed watching television eating some soft food. Reason For Visit: ACUTE ON CHRONIC HYPOXIC,HYPERCAPNIC RESPIRATORY Physical Exam Vital Signs: Temp Pulse Resp BP Pulse Ox 99.0 F 86 27 H 122/88 H 98 09/22/18 16:41 09/22/18 16:00 09/22/18 16:41 09/22/18 16:41 09/22/18 16:41 Intake & Output 09/21/18 09/22/18 09/23/18 06:59 06:59 06:59 Intake Total 1436 973 579 Output Total 1905 1665 950 Balance -469 -692 -894 Weight 76.5 kg 74.4 kg General appearance: PRESENT: no acute distress, cooperative, disheveled, obese Respiratory exam: PRESENT: rhonchi - Bibasilar, tachypnea, wheezes - Faint bibasilar. ABSENT: accessory muscle use, chest wall tenderness, crackles, prolonged expiratory phas, symmetrical, unlabored Cardiovascular exam: PRESENT: RRR - With occasional PVCs, +S1, +S2 Pulses: PRESENT: normal carotid pulses Vascular exam: PRESENT: normal capillary refill GI/Abdominal exam: PRESENT: normal bowel sounds, soft. ABSENT: distended, guarding, rebound, tenderness Extremities exam: ABSENT: clubbing, pedal edema Musculoskeletal exam: PRESENT: normal inspection. ABSENT: deformity Neurological exam: PRESENT: alert, awake, oriented to person, oriented to place, oriented to situation Psychiatric exam: PRESENT: appropriate affect, normal mood Skin exam: PRESENT: dry, warm Results Laboratory Results: 09/21/18 03:31 09/22/18 07:01 09/21/18 09/22/18 09/22/18 21:21 03:39 03:39 Sodium 138.4 Potassium 3.1 L Chloride 102 Carbon Dioxide 26 Anion Gap 10 BUN 26 H Creatinine 0.58 0.45 L Est GFR ( Amer) > 60 > 60 Est GFR (Non-Af Amer) > 60 > 60 Glucose 212 H Calcium 8.6 Magnesium 2.0 07/29/19 07:01 Sodium Potassium 3.4 L Chloride Carbon Dioxide Anion Gap BUN Creatinine Est GFR ( Amer) Est GFR (Non-Af Amer) Glucose Calcium Magnesium 09/15/18 09/15/18 09/16/18 05:25 05:25 03:31 Creatine Kinase 61 Troponin I 0.016 NT-Pro-B Natriuret Pep 2250 H 7660 H Impressions: Head CT 09/15/18 05:27 IMPRESSION: No acute intracranial abnormality. TECHNICAL DOCUMENTATION: Quality ID # [id number]: Final reports with documentation of one or more dose reduction techniques (e.g., Automated exposure control, adjustment of the mA and/or kV according to patient size, use of iterative reconstruction technique) copyright 2011 [employer]- All Rights Reserved Chest CT 09/21/18 00:00 IMPRESSION: Clear lungs. Chest X-Ray 09/21/18 06:00 IMPRESSION: NO ACUTE RADIOGRAPHIC FINDING IN THE CHEST. SUPPORT DEVICE(S) IN EXPECTED LOCATIONS. Assessment and Plan - Diagnosis (1) Acute on chronic respiratory failure with hypoxia and hypercapnia Is this a current diagnosis for this admission?: Yes Plan: She is been extubated to the nasal cannula. We had her on BiPAP for a little while, transition her to a face tent, and into a nasal cannula. Doing well thus far, watching closely for decompensation. (2) Acute exacerbation of chronic obstructive pulmonary disease (COPD) Is this a current diagnosis for this admission?: Yes Plan: Continue respiratory support, steroids, antibiotics, and bronchodilators. (3) Chronic congestive heart failure Qualifiers: Heart failure type: unspecified Qualified Code(s): I50.9 - Heart failure, unspecified Is this a current diagnosis for this admission?: Yes Plan: Not acutely exacerbated, continue home medications (4) Coronary artery disease Qualifiers: Coronary Disease-Associated Artery/Lesion type: [place] artery [place] vs. transplanted heart: [place] heart Associated angina: without angina Qualified Code(s): I25.10 - Atherosclerotic heart disease of [place] coronary artery without angina pectoris Is this a current diagnosis for this admission?: Yes Plan: Continuing home medications (5) Depression Qualifiers: Depression Type: unspecified Qualified Code(s): F32.9 - Major depressive disorder, single episode, unspecified Is this a current diagnosis for this admission?: Yes Plan: 09/15/2018-continue sertraline (6) Diabetes mellitus type 2, noninsulin dependent Is this a current diagnosis for this admission?: Yes Plan: Continue insulin coverage with sliding scale (7) Hypertension Qualifiers: Hypertension type: essential hypertension Qualified Code(s): I10 - Essential (primary) hypertension Is this a current diagnosis for this admission?: Yes Plan: Well-controlled on current regimen (8) Hypothyroidism Qualifiers: Hypothyroidism type: unspecified Qualified Code(s): E03.9 - Hypothyroidism, unspecified Is this a current diagnosis for this admission?: Yes Plan: Continue Synthroid - Time Time Spent with patient: 35 or more minutes
[2018-09-22] MEDS ORDERED: POTASSIUM CHLORIDE 20 MEQ PACKET PO ONE (18:30)
[2018-09-22] MEDS ORDERED: POTASSIUM CHLORIDE 10 MEQ CAPSULE.ER PO ONE (19:00)
[2018-09-22] MEDS: ATORVASTATIN CALCIUM 40 MG TABLET NG SCH (21:24)
[2018-09-22] MEDS: ASPIRIN 81 MG TABLET, CHEWABLE NG SCH (21:24)
[2018-09-23] MEDS: INSULIN LISPRO 100 UNIT/ML 3 ML VIAL SUBCUT SCH ×6 (00:38→23:17)
[2018-09-23] MEDS: PIPERACILLIN SODIUM/TAZOBACTAM 3.375 GM in NORMAL SALINE 100 ML IV SCH ×3 (00:40→12:59)
[2018-09-23] MEDS: IPRATROPIUM/ALBUTEROL 0.5-2.5 MG/3 ML AMPUL NEB SCH ×4 (01:36→20:28)
[2018-09-23 04:16] LABS: ANION GAP 11 (5-19); BLOOD UREA NITROGEN 20 mg/dL (7-20); CALCIUM 8.8 mg/dL (8.4-10.2); CARBON DIOXIDE 28 mmol/L (22-30); CHLORIDE 98 mmol/L (98-107); GLUCOSE 290 mg/dL (75-110); POTASSIUM 3.1 mmol/L (3.6-5.0)
[2018-09-23] MEDS: FUROSEMIDE INJ/PF 20 MG/2 ML SDV IV SCH ×2 (05:14→17:49)
[2018-09-23] MEDS: GABAPENTIN 400 MG CAPSULE NG SCH ×3 (05:15→21:44)
[2018-09-23] MEDS: LEVOTHYROXINE SODIUM 0.025 MG TABLET NG SCH (05:15)
[2018-09-23] MEDS: METHYLPREDNISOLONE INJ 125 MG/2 ML SDV IV SCH (05:16)
[2018-09-23] MEDS: PANTOPRAZOLE SODIUM 40 MG PACKET.DR NG SCH (05:17)
[2018-09-23] MEDS ORDERED: POTASSIUM CHLORIDE 10 MEQ CAPSULE.ER PO ONE (08:35)
[2018-09-23] MEDS: BUDESONIDE NEB 0.5 MG/2 ML AMPUL NEB SCH ×2 (08:39→20:28)
[2018-09-23] MEDS ORDERED: POTASSIUM CHLORIDE 20 MEQ PACKET PO ONE (08:45)
[2018-09-23] MEDS: VANCOMYCIN HCL 1,000 MG in DEXTROSE 5%-WATER 250 ML IV SCH ×2 (09:07→21:46)
[2018-09-23] MEDS: CARVEDILOL 6.25 MG TABLET NG SCH ×2 (09:07→21:45)
[2018-09-23] MEDS: ENOXAPARIN SODIUM INJ 40 MG/0.4 ML DISP.SYRIN SUBCUT SCH (09:08)
[2018-09-23] MEDS: SACUBITRIL/VALSARTAN 24 MG/26 MG TABLET NG SCH ×2 (09:08→21:45)
[2018-09-23] MEDS: SERTRALINE HCL 50 MG TABLET NG SCH (09:08)
[2018-09-23] MEDS: METFORMIN HCL 850 MG TABLET NG SCH ×2 (09:08→17:49)
[2018-09-23] MEDS ORDERED: POTASSIUM CHLORIDE 20 MEQ PACKET NG ONE (09:15)
[2018-09-23] MEDS: NICOTINE 21 MG/24 HR PATCH.TD24 TD SCH (09:58)
--- NOTE | 2018-09-23 13:23 | PDOC PROGRESS REPORT ---
Subjective Progress Note for:: 09/23/18 Subjective:: 24 hours status post extubation stable Reason For Visit: ACUTE ON CHRONIC HYPOXIC,HYPERCAPNIC RESPIRATORY Physical Exam Vital Signs: Temp Pulse Resp BP Pulse Ox 98.8 F 85 21 H 128/84 H 100 09/23/18 08:00 09/23/18 08:39 09/23/18 08:39 09/23/18 08:00 09/23/18 08:39 Intake & Output 09/22/18 09/23/18 09/24/18 06:59 06:59 06:59 Intake Total 973 1129 Output Total 1665 1999 300 Balance -692 -871 -300 Weight 74.4 kg 77.3 kg General appearance: PRESENT: no acute distress, cooperative, disheveled, obese Head exam: PRESENT: atraumatic, normocephalic Eye exam: PRESENT: conjunctiva pale, EOMI. ABSENT: nystagmus, periorbital swelling Mouth exam: PRESENT: dry mucosa, neck supple, tongue midline Neck exam: ABSENT: carotid bruit, full ROM, JVD, lymphadenopathy, meningismus, tenderness, thyromegaly, tracheal deviation, tracheostomy, other Respiratory exam: PRESENT: decreased breath sounds, prolonged expiratory phas, rales, rhonchi, unlabored. ABSENT: retraction, stridor, tachypnea Cardiovascular exam: PRESENT: RRR, +S1, +S2 Pulses: PRESENT: normal radial pulses GI/Abdominal exam: PRESENT: soft. ABSENT: mass, tenderness Gentrourinary exam: PRESENT: indwelling catheter Extremities exam: PRESENT: pedal edema. ABSENT: calf tenderness, clubbing, joint swelling Musculoskeletal exam: ABSENT: deformity, dislocation Neurological exam: PRESENT: alert, awake Psychiatric exam: PRESENT: appropriate affect Skin exam: PRESENT: dry, warm Results Laboratory Results: 09/21/18 03:31 09/23/18 03:36 09/23/18 03:36 Sodium 136.5 L Potassium 3.1 L Chloride 98 Carbon Dioxide 28 Anion Gap 11 BUN 20 Creatinine 0.62 Est GFR ( Amer) > 60 Est GFR (Non-Af Amer) > 60 Glucose 290 H Calcium 8.8 09/15/18 09/15/18 09/16/18 05:25 05:25 03:31 Creatine Kinase 61 Troponin I 0.016 NT-Pro-B Natriuret Pep 2250 H 7660 H Impressions: Head CT 09/15/18 05:27 IMPRESSION: No acute intracranial abnormality. TECHNICAL DOCUMENTATION: Quality ID # [id number]: Final reports with documentation of one or more dose reduction techniques (e.g., Automated exposure control, adjustment of the mA and/or kV according to patient size, use of iterative reconstruction technique) copyright 2011 [employer]- All Rights Reserved Chest CT 09/21/18 00:00 IMPRESSION: Clear lungs. Chest X-Ray 09/21/18 06:00 IMPRESSION: NO ACUTE RADIOGRAPHIC FINDING IN THE CHEST. SUPPORT DEVICE(S) IN EXPECTED LOCATIONS. Assessment & Plan - Diagnosis (1) Acute on chronic respiratory failure with hypoxia and hypercapnia Is this a current diagnosis for this admission?: Yes Plan: 24 hours status post extubation stable at this time (2) Chronic congestive heart failure Qualifiers: Heart failure type: unspecified Qualified Code(s): I50.9 - Heart failure, unspecified Is this a current diagnosis for this admission?: Yes Plan: improved (3) Hypertension Qualifiers: Hypertension type: essential hypertension Qualified Code(s): I10 - Essential (primary) hypertension Is this a current diagnosis for this admission?: Yes Plan: continue current meds as tolerated (4) COPD (chronic obstructive pulmonary disease) Qualifiers: COPD type: unspecified COPD Qualified Code(s): J44.9 - Chronic obstructive pulmonary disease, unspecified Is this a current diagnosis for this admission?: Yes Plan: duoneb + xopnex prn (5) Hypothyroidism Is this a current diagnosis for this admission?: Yes Plan: check tsh t3 t4 (6) Tobacco dependence Is this a current diagnosis for this admission?: Yes Plan: transdermal nicotine - Time Total Critical Time (Minutes): 40
--- NOTE | 2018-09-23 13:26 | PDOC PROGRESS REPORT ---
Subjective Progress Note for:: 09/16/18 Subjective:: Intubated and sedated Reason For Visit: ACUTE ON CHRONIC HYPOXIC,HYPERCAPNIC RESPIRATORY Physical Exam Vital Signs: Temp Pulse Resp BP Pulse Ox 99.7 F 116 H 26 H 134/58 H 99 09/16/18 08:00 09/16/18 08:26 09/16/18 08:26 09/16/18 08:00 09/16/18 08:26 Intake & Output 09/15/18 09/16/18 09/17/18 06:59 06:59 06:59 Intake Total 200 673 Output Total 845 40 Balance 200 -172 -40 Weight 80.6 kg 79.9 kg General appearance: PRESENT: no acute distress, disheveled, obese Head exam: PRESENT: atraumatic, normocephalic Eye exam: PRESENT: conjunctiva pale. ABSENT: nystagmus, periorbital swelling, scleral icterus Mouth exam: PRESENT: dry mucosa, neck supple, tongue midline, other - ET tube Neck exam: ABSENT: carotid bruit, full ROM, JVD, lymphadenopathy, meningismus, tenderness, thyromegaly, tracheal deviation, tracheostomy, other Respiratory exam: PRESENT: decreased breath sounds, prolonged expiratory phas, rales, rhonchi, symmetrical, unlabored. ABSENT: retraction, stridor Cardiovascular exam: PRESENT: RRR, +S1, +S2 Pulses: PRESENT: normal radial pulses GI/Abdominal exam: PRESENT: hypoactive bowel sounds, soft. ABSENT: mass, tenderness Gentrourinary exam: PRESENT: indwelling catheter Extremities exam: PRESENT: pedal edema. ABSENT: calf tenderness, clubbing, joint swelling Musculoskeletal exam: ABSENT: deformity, dislocation Neurological exam: PRESENT: altered Skin exam: PRESENT: dry, warm Results Laboratory Results: 09/16/18 03:31 09/16/18 03:31 09/15/18 09/15/18 09/16/18 09:50 11:00 03:31 WBC 14.1 H RBC 3.71 L Hgb 11.0 L Hct 32.3 L MCV 87 D MCH 29.8 MCHC 34.1 RDW 16.1 H Plt Count 301 Seg Neutrophils % 89.4 H Lymphocytes % 7.5 L Monocytes % 3.0 Eosinophils % 0.0 Basophils % 0.1 Absolute Neutrophils 12.6 H Absolute Lymphocytes 1.1 Absolute Monocytes 0.4 Absolute Eosinophils 0.0 Absolute Basophils 0.0 Carbonic Acid 2.36 H 1.56 H HCO3/H2CO3 Ratio 12:1 16:1 ABG pH 7.18 L* 7.32 L ABG pCO2 78.5 H* 51.7 H ABG pO2 147.0 H 72.3 L ABG HCO3 28.9 H 26.1 H ABG O2 Saturation 98.2 H 93.2 L ABG Base Excess -1.3 -0.6 FiO2 100% 35% Sodium Potassium Chloride Carbon Dioxide Anion Gap BUN Creatinine Est GFR ( Amer) Est GFR (Non-Af Amer) Glucose Calcium Magnesium Total Bilirubin AST ALT Alkaline Phosphatase Total Protein Albumin TSH 09/16/18 09/16/18 09/16/18 03:31 03:31 03:46 WBC RBC Hgb Hct MCV MCH MCHC RDW Plt Count Seg Neutrophils % Lymphocytes % Monocytes % Eosinophils % Basophils % Absolute Neutrophils Absolute Lymphocytes Absolute Monocytes Absolute Eosinophils Absolute Basophils Carbonic Acid 1.23 HCO3/H2CO3 Ratio 20:1 ABG pH 7.42 ABG pCO2 40.9 ABG pO2 62.8 L ABG HCO3 25.6 H ABG O2 Saturation 92.4 L ABG Base Excess 1.0 FiO2 30% Sodium 141.3 Potassium 3.2 L D Chloride 107 Carbon Dioxide 26 Anion Gap 8 BUN 12 Creatinine 0.54 Est GFR ( Amer) > 60 Est GFR (Non-Af Amer) > 60 Glucose 196 H Calcium 8.7 Magnesium 2.0 Total Bilirubin 0.3 AST 26 ALT 41 Alkaline Phosphatase 79 Total Protein 5.7 L Albumin 3.4 L TSH 3.16 09/15/18 09/15/18 09/16/18 05:25 05:25 03:31 Creatine Kinase 61 Troponin I 0.016 NT-Pro-B Natriuret Pep 2250 H 7660 H Impressions: Head CT 09/15/18 05:27 IMPRESSION: No acute intracranial abnormality. TECHNICAL DOCUMENTATION: Quality ID # [id number]: Final reports with documentation of one or more dose reduction techniques (e.g., Automated exposure control, adjustment of the mA and/or kV according to patient size, use of iterative reconstruction technique) copyright 2011 [employer]- All Rights Reserved Chest X-Ray 09/16/18 06:00 IMPRESSION: STABLE APPEARANCE OF THE CHEST. SUPPORT DEVICES UNCHANGED. Assessment & Plan - Diagnosis (1) Acute on chronic respiratory failure with hypoxia and hypercapnia Is this a current diagnosis for this admission?: Yes Plan: Stable very close to baseline (2) Chronic congestive heart failure Qualifiers: Heart failure type: unspecified Qualified Code(s): I50.9 - Heart failure, unspecified Is this a current diagnosis for this admission?: Yes Plan: improved (3) Hypertension Qualifiers: Hypertension type: essential hypertension Qualified Code(s): I10 - Essential (primary) hypertension Is this a current diagnosis for this admission?: Yes Plan: continue current meds as tolerated (4) Hypothyroidism Qualifiers: Hypothyroidism type: unspecified Qualified Code(s): E03.9 - Hypothyroidism, unspecified Is this a current diagnosis for this admission?: Yes Plan: Synthroid - Time Total Critical Time (Minutes): 55
--- NOTE | 2018-09-23 13:30 | PDOC PROGRESS REPORT ---
Subjective Progress Note for:: 09/17/18 Subjective:: Intubated and sedated Reason For Visit: ACUTE ON CHRONIC HYPOXIC,HYPERCAPNIC RESPIRATORY Physical Exam Vital Signs: Temp Pulse Resp BP Pulse Ox 99.3 F 103 H 19 140/85 H 99 09/17/18 08:00 09/17/18 08:00 09/17/18 08:00 09/17/18 08:00 09/17/18 08:00 Intake & Output 09/16/18 09/17/18 09/18/18 06:59 06:59 06:59 Intake Total 673 1691 Output Total 845 1465 500 Balance -172 226 -500 Weight 79.9 kg 77.8 kg General appearance: PRESENT: no acute distress, disheveled, obese Head exam: PRESENT: atraumatic, normocephalic Eye exam: PRESENT: conjunctiva pale. ABSENT: nystagmus, periorbital swelling Mouth exam: PRESENT: dry mucosa, neck supple, tongue midline, other - ET tube Neck exam: ABSENT: carotid bruit, full ROM, JVD, lymphadenopathy, meningismus, tenderness, thyromegaly, tracheal deviation, tracheostomy, other Respiratory exam: PRESENT: decreased breath sounds, prolonged expiratory phas, rhonchi, symmetrical, unlabored. ABSENT: retraction, stridor Cardiovascular exam: PRESENT: RRR, +S1, +S2, tachycardia Pulses: PRESENT: normal radial pulses GI/Abdominal exam: PRESENT: hypoactive bowel sounds, soft. ABSENT: mass, tenderness Gentrourinary exam: PRESENT: indwelling catheter Extremities exam: PRESENT: pedal edema. ABSENT: calf tenderness, clubbing, joint swelling Musculoskeletal exam: ABSENT: deformity, dislocation Neurological exam: PRESENT: altered Psychiatric exam: PRESENT: flat affect Skin exam: PRESENT: dry, warm Results Laboratory Results: 09/17/18 04:22 09/17/18 04:22 09/16/18 09/16/18 09/16/18 08:50 12:45 15:12 WBC RBC Hgb Hct MCV MCH MCHC RDW Plt Count Seg Neutrophils % Lymphocytes % Monocytes % Eosinophils % Basophils % Absolute Neutrophils Absolute Lymphocytes Absolute Monocytes Absolute Eosinophils Absolute Basophils Carbonic Acid 1.19 2.80 H HCO3/H2CO3 Ratio 20:1 9:1 ABG pH 7.40 7.09 L* ABG pCO2 39.4 93.0 H* ABG pO2 94.6 163.4 H ABG HCO3 24.1 H 27.5 H ABG O2 Saturation 97.3 98.3 H ABG Base Excess -0.5 -4.5 FiO2 30% 100% Sodium Potassium 3.8 Chloride Carbon Dioxide Anion Gap BUN Creatinine Est GFR ( Amer) Est GFR (Non-Af Amer) Glucose Calcium Phosphorus Magnesium 09/16/18 09/17/18 09/17/18 16:45 04:09 04:22 WBC 14.3 H RBC 3.57 L Hgb 10.6 L Hct 31.5 L MCV 88 MCH 29.6 MCHC 33.5 RDW 16.5 H Plt Count 295 Seg Neutrophils % 88.0 H Lymphocytes % 8.4 L Monocytes % 3.5 Eosinophils % 0.0 Basophils % 0.1 Absolute Neutrophils 12.6 H Absolute Lymphocytes 1.2 Absolute Monocytes 0.5 Absolute Eosinophils 0.0 Absolute Basophils 0.0 Carbonic Acid 1.68 H 1.28 HCO3/H2CO3 Ratio 16:1 21:1 ABG pH 7.32 L 7.42 ABG pCO2 55.9 H 42.6 ABG pO2 97.5 108.5 H ABG HCO3 27.9 H 27.1 H ABG O2 Saturation 96.8 98.0 ABG Base Excess 0.9 2.4 FiO2 40% 35% Sodium Potassium Chloride Carbon Dioxide Anion Gap BUN Creatinine Est GFR ( Amer) Est GFR (Non-Af Amer) Glucose Calcium Phosphorus Magnesium 09/17/18 04:22 WBC RBC Hgb Hct MCV MCH MCHC RDW Plt Count Seg Neutrophils % Lymphocytes % Monocytes % Eosinophils % Basophils % Absolute Neutrophils Absolute Lymphocytes Absolute Monocytes Absolute Eosinophils Absolute Basophils Carbonic Acid HCO3/H2CO3 Ratio ABG pH ABG pCO2 ABG pO2 ABG HCO3 ABG O2 Saturation ABG Base Excess FiO2 Sodium 143.8 Potassium 3.8 Chloride 108 H Carbon Dioxide 28 Anion Gap 8 BUN 17 Creatinine 0.62 Est GFR ( Amer) > 60 Est GFR (Non-Af Amer) > 60 Glucose 208 H Calcium 8.9 Phosphorus 3.3 Magnesium 1.9 09/15/18 09/15/18 09/16/18 05:25 05:25 03:31 Creatine Kinase 61 Troponin I 0.016 NT-Pro-B Natriuret Pep 2250 H 7660 H Impressions: Head CT 09/15/18 05:27 IMPRESSION: No acute intracranial abnormality. TECHNICAL DOCUMENTATION: Quality ID # [id number]: Final reports with documentation of one or more dose reduction techniques (e.g., Automated exposure control, adjustment of the mA and/or kV according to patient size, use of iterative reconstruction technique) copyright 2011 [employer]- All Rights Reserved Chest X-Ray 09/17/18 06:00 IMPRESSION: Stable support lines and tubes. Mild increased right basilar opacities possibly infection, atelectasis or edema. Assessment & Plan - Diagnosis (1) Acute on chronic respiratory failure with hypoxia and hypercapnia Is this a current diagnosis for this admission?: Yes Plan: agitated during sedation vacation (2) Chronic congestive heart failure Qualifiers: Heart failure type: unspecified Qualified Code(s): I50.9 - Heart failure, unspecified Is this a current diagnosis for this admission?: Yes Plan: improved (3) Hypertension Qualifiers: Hypertension type: essential hypertension Qualified Code(s): I10 - Essential (primary) hypertension Is this a current diagnosis for this admission?: Yes Plan: continue current meds as tolerated (4) Hypothyroidism Qualifiers: Hypothyroidism type: unspecified Qualified Code(s): E03.9 - Hypothyroidism, unspecified Is this a current diagnosis for this admission?: Yes Plan: Synthroid - Time Total Critical Time (Minutes): 45
--- NOTE | 2018-09-23 13:32 | PDOC PROGRESS REPORT ---
Subjective Progress Note for:: 09/18/18 Subjective:: Intubated and sedated Reason For Visit: ACUTE ON CHRONIC HYPOXIC,HYPERCAPNIC RESPIRATORY Physical Exam Vital Signs: Temp Pulse Resp BP Pulse Ox 100.6 F H 72 24 H 128/76 H 96 09/18/18 08:00 09/18/18 08:03 09/18/18 08:03 09/18/18 08:00 09/18/18 08:03 Intake & Output 09/17/18 09/18/18 09/19/18 06:59 06:59 06:59 Intake Total 1691 908 Output Total 1465 2130 150 Balance 226 -1222 -150 Weight 77.8 kg 77.1 kg General appearance: PRESENT: no acute distress, disheveled, obese Head exam: PRESENT: atraumatic, normocephalic Eye exam: PRESENT: conjunctiva pale. ABSENT: nystagmus Mouth exam: PRESENT: dry mucosa, neck supple, tongue midline Neck exam: ABSENT: carotid bruit, full ROM, JVD, lymphadenopathy, meningismus, tenderness, thyromegaly, tracheal deviation, tracheostomy, other Respiratory exam: PRESENT: decreased breath sounds, prolonged expiratory phas, rales, rhonchi, unlabored. ABSENT: retraction, stridor Cardiovascular exam: PRESENT: RRR, +S1, +S2, tachycardia Pulses: PRESENT: normal radial pulses GI/Abdominal exam: PRESENT: hypoactive bowel sounds, soft. ABSENT: mass, tenderness Gentrourinary exam: PRESENT: indwelling catheter Extremities exam: PRESENT: pedal edema. ABSENT: calf tenderness, clubbing, joint swelling Musculoskeletal exam: ABSENT: deformity, dislocation Neurological exam: PRESENT: altered Psychiatric exam: PRESENT: flat affect Skin exam: PRESENT: dry, warm Results Laboratory Results: 09/18/18 04:00 09/18/18 04:00 09/18/18 09/18/18 09/18/18 03:53 04:00 04:00 WBC 9.6 RBC 3.62 L Hgb 10.7 L Hct 31.7 L MCV 88 MCH 29.7 MCHC 33.8 RDW 16.4 H Plt Count 301 Seg Neutrophils % 80.6 H Lymphocytes % 14.7 Monocytes % 4.6 Eosinophils % 0.0 Basophils % 0.1 Absolute Neutrophils 7.7 Absolute Lymphocytes 1.4 Absolute Monocytes 0.4 Absolute Eosinophils 0.0 Absolute Basophils 0.0 Carbonic Acid 1.26 HCO3/H2CO3 Ratio 21:1 ABG pH 7.44 ABG pCO2 41.9 ABG pO2 64.6 L ABG HCO3 27.7 H ABG O2 Saturation 93.3 L ABG Base Excess 3.2 FiO2 30% Sodium 143.2 Potassium 3.5 L Chloride 107 Carbon Dioxide 29 Anion Gap 7 BUN 24 H Creatinine 0.69 Est GFR ( Amer) > 60 Est GFR (Non-Af Amer) > 60 Glucose 209 H Calcium 8.6 Magnesium 2.1 09/15/18 09/15/18 09/16/18 05:25 05:25 03:31 Creatine Kinase 61 Troponin I 0.016 NT-Pro-B Natriuret Pep 2250 H 7660 H Impressions: Head CT 09/15/18 05:27 IMPRESSION: No acute intracranial abnormality. TECHNICAL DOCUMENTATION: Quality ID # [id number]: Final reports with documentation of one or more dose reduction techniques (e.g., Automated exposure control, adjustment of the mA and/or kV according to patient size, use of iterative reconstruction technique) copyright 2011 [employer]- All Rights Reserved Chest X-Ray 09/18/18 06:00 IMPRESSION: CLEARING OF THE FAINT DENSITY IN THE RIGHT LUNG BASE. NO ACUTE RADIOGRAPHIC FINDING IN THE CHEST. Assessment & Plan - Diagnosis (1) Acute on chronic respiratory failure with hypoxia and hypercapnia Is this a current diagnosis for this admission?: Yes Plan: agitated during sedation vacation (2) Chronic congestive heart failure Qualifiers: Heart failure type: unspecified Qualified Code(s): I50.9 - Heart failure, unspecified Is this a current diagnosis for this admission?: Yes Plan: improved (3) Hypertension Qualifiers: Hypertension type: essential hypertension Qualified Code(s): I10 - Essential (primary) hypertension Is this a current diagnosis for this admission?: Yes Plan: continue current meds as tolerated (4) Hypothyroidism Qualifiers: Hypothyroidism type: unspecified Qualified Code(s): E03.9 - Hypothyroidism, unspecified Is this a current diagnosis for this admission?: Yes Plan: Synthroid - Time Total Critical Time (Minutes): 40
--- NOTE | 2018-09-23 13:34 | PDOC PROGRESS REPORT ---
Subjective Progress Note for:: 09/19/18 Subjective:: Intubated and sedated Reason For Visit: ACUTE ON CHRONIC HYPOXIC,HYPERCAPNIC RESPIRATORY Physical Exam Vital Signs: Temp Pulse Resp BP Pulse Ox 99.3 F 79 23 H 145/93 H 95 09/19/18 08:00 09/19/18 08:00 09/19/18 08:00 09/19/18 08:00 09/19/18 08:00 Intake & Output 09/18/18 09/19/18 09/20/18 06:59 06:59 06:59 Intake Total 908 1032 25 Output Total 2130 1835 660 Balance -1222 -803 -635 Weight 77.1 kg 76.1 kg General appearance: PRESENT: no acute distress, disheveled, obese Head exam: PRESENT: atraumatic, normocephalic Eye exam: PRESENT: conjunctiva pale. ABSENT: nystagmus, periorbital swelling Mouth exam: PRESENT: dry mucosa, neck supple, tongue midline, other - ET Tube Neck exam: ABSENT: carotid bruit, full ROM, JVD, lymphadenopathy, meningismus, tenderness, thyromegaly, tracheal deviation, tracheostomy, other Respiratory exam: PRESENT: decreased breath sounds, prolonged expiratory phas, rales, rhonchi, unlabored. ABSENT: retraction, stridor Cardiovascular exam: PRESENT: RRR, +S1, +S2, tachycardia Pulses: PRESENT: normal radial pulses GI/Abdominal exam: PRESENT: hypoactive bowel sounds, soft. ABSENT: mass, tenderness Gentrourinary exam: PRESENT: indwelling catheter Extremities exam: PRESENT: pedal edema. ABSENT: calf tenderness, clubbing, joint swelling Musculoskeletal exam: ABSENT: deformity, dislocation Neurological exam: ABSENT: awake Skin exam: PRESENT: dry, warm Results Laboratory Results: 09/19/18 04:02 09/19/18 04:02 09/18/18 09/19/18 09/19/18 04:00 04:02 04:02 WBC 8.2 RBC 3.93 Hgb 11.7 L Hct 34.4 L MCV 88 MCH 29.7 MCHC 34.0 RDW 16.1 H Plt Count 309 Seg Neutrophils % 78.5 H Lymphocytes % 17.0 Monocytes % 4.4 Eosinophils % 0.0 Basophils % 0.1 Absolute Neutrophils 6.5 Absolute Lymphocytes 1.4 Absolute Monocytes 0.4 Absolute Eosinophils 0.0 Absolute Basophils 0.0 Carbonic Acid HCO3/H2CO3 Ratio ABG pH ABG pCO2 ABG pO2 ABG HCO3 ABG O2 Saturation ABG Base Excess FiO2 Sodium 141.3 Potassium 3.3 L Chloride 105 Carbon Dioxide 30 Anion Gap 6 BUN 27 H Creatinine 0.65 Est GFR ( Amer) > 60 Est GFR (Non-Af Amer) > 60 Glucose 274 H Calcium 8.4 Magnesium 2.1 Triglycerides 437 H 09/19/18 04:14 WBC RBC Hgb Hct MCV MCH MCHC RDW Plt Count Seg Neutrophils % Lymphocytes % Monocytes % Eosinophils % Basophils % Absolute Neutrophils Absolute Lymphocytes Absolute Monocytes Absolute Eosinophils Absolute Basophils Carbonic Acid 1.22 HCO3/H2CO3 Ratio 22:1 ABG pH 7.45 ABG pCO2 40.6 ABG pO2 68.9 L ABG HCO3 27.4 H ABG O2 Saturation 94.5 ABG Base Excess 3.1 FiO2 35% Sodium Potassium Chloride Carbon Dioxide Anion Gap BUN Creatinine Est GFR ( Amer) Est GFR (Non-Af Amer) Glucose Calcium Magnesium Triglycerides 09/15/18 09/15/18 09/16/18 05:25 05:25 03:31 Creatine Kinase 61 Troponin I 0.016 NT-Pro-B Natriuret Pep 2250 H 7660 H Impressions: Head CT 09/15/18 05:27 IMPRESSION: No acute intracranial abnormality. TECHNICAL DOCUMENTATION: Quality ID # 436: Final reports with documentation of one or more dose reduction techniques (e.g., Automated exposure control, adjustment of the mA and/or kV according to patient size, use of iterative reconstruction technique) copyright 2011 [employer]- All Rights Reserved Chest X-Ray 09/19/18 06:00 IMPRESSION: STABLE APPEARANCE OF THE CHEST. SUPPORT DEVICES UNCHANGED. Assessment & Plan - Diagnosis (1) Acute on chronic respiratory failure with hypoxia and hypercapnia Is this a current diagnosis for this admission?: Yes Plan: agitated during sedation vacation (2) Chronic congestive heart failure Qualifiers: Heart failure type: unspecified Qualified Code(s): I50.9 - Heart failure, unspecified Is this a current diagnosis for this admission?: Yes Plan: improved (3) Hypertension Qualifiers: Hypertension type: essential hypertension Qualified Code(s): I10 - Essential (primary) hypertension Is this a current diagnosis for this admission?: Yes Plan: continue current meds as tolerated (4) COPD (chronic obstructive pulmonary disease) Qualifiers: COPD type: unspecified COPD Qualified Code(s): J44.9 - Chronic obstructive pulmonary disease, unspecified Is this a current diagnosis for this admission?: Yes Plan: duoneb + xopnex prn (5) Hypothyroidism Is this a current diagnosis for this admission?: Yes Plan: check tsh t3 t4 (6) Tobacco dependence Is this a current diagnosis for this admission?: Yes Plan: transdermal nicotine - Time Total Critical Time (Minutes): 45
--- NOTE | 2018-09-23 13:37 | PDOC PROGRESS REPORT ---
Subjective Progress Note for:: 09/20/18 Subjective:: Intubated and sedated Reason For Visit: ACUTE ON CHRONIC HYPOXIC,HYPERCAPNIC RESPIRATORY Physical Exam Vital Signs: Temp Pulse Resp BP Pulse Ox 99.7 F 70 18 114/67 96 09/20/18 10:00 09/20/18 10:00 09/20/18 10:00 09/20/18 10:00 09/20/18 10:00 Intake & Output 09/19/18 09/20/18 09/21/18 06:59 06:59 06:59 Intake Total 1132 1129 78 Output Total 1833 6855 880 Balance -703 -816 -802 Weight 76.1 kg 76.7 kg General appearance: PRESENT: no acute distress, disheveled, obese Head exam: PRESENT: atraumatic, normocephalic Eye exam: PRESENT: conjunctiva pale. ABSENT: nystagmus, periorbital swelling Mouth exam: PRESENT: dry mucosa, neck supple, tongue midline, other - ET tube Throat exam: ABSENT: post pharyngeal erythema, tonsillar erythema, tonsillar exudate, tonsillogmegaly, other Neck exam: ABSENT: carotid bruit, full ROM, JVD, lymphadenopathy, meningismus, tenderness, thyromegaly, tracheal deviation, tracheostomy, other Respiratory exam: PRESENT: decreased breath sounds, prolonged expiratory phas, rales, rhonchi, unlabored. ABSENT: retraction, stridor Cardiovascular exam: PRESENT: RRR, +S1, +S2 Pulses: PRESENT: normal radial pulses GI/Abdominal exam: PRESENT: soft. ABSENT: mass, tenderness Gentrourinary exam: PRESENT: indwelling catheter Extremities exam: ABSENT: calf tenderness, clubbing, joint swelling, pedal edema Musculoskeletal exam: ABSENT: deformity, dislocation Neurological exam: ABSENT: altered Psychiatric exam: ABSENT: flat affect Skin exam: PRESENT: dry Results Laboratory Results: 09/19/18 04:02 09/20/18 03:41 09/19/18 09/20/18 09/20/18 11:17 03:41 04:28 Carbonic Acid 1.29 HCO3/H2CO3 Ratio 23:1 ABG pH 7.46 H ABG pCO2 42.8 ABG pO2 71.8 L ABG HCO3 30.0 H ABG O2 Saturation 95.2 ABG Base Excess 5.7 FiO2 35% Sodium 141.3 Potassium 3.7 3.7 Chloride 104 Carbon Dioxide 29 Anion Gap 8 BUN 26 H Creatinine 0.62 Est GFR ( Amer) > 60 Est GFR (Non-Af Amer) > 60 Glucose 241 H Calcium 8.6 09/15/18 09/15/18 09/16/18 05:25 05:25 03:31 Creatine Kinase 61 Troponin I 0.016 NT-Pro-B Natriuret Pep 2250 H 7660 H Impressions: Head CT 09/15/18 05:27 IMPRESSION: No acute intracranial abnormality. TECHNICAL DOCUMENTATION: Quality ID # 436: Final reports with documentation of one or more dose reduction techniques (e.g., Automated exposure control, adjustment of the mA and/or kV according to patient size, use of iterative reconstruction technique) copyright 2011 [employer]- All Rights Reserved Chest X-Ray 09/19/18 06:00 IMPRESSION: STABLE APPEARANCE OF THE CHEST. SUPPORT DEVICES UNCHANGED. Assessment & Plan - Diagnosis (1) Acute on chronic respiratory failure with hypoxia and hypercapnia Is this a current diagnosis for this admission?: Yes Plan: agitated during sedation vacation-thick yellow secretions (2) Chronic congestive heart failure Qualifiers: Heart failure type: unspecified Qualified Code(s): I50.9 - Heart failure, unspecified Is this a current diagnosis for this admission?: Yes Plan: improved (3) Hypertension Qualifiers: Hypertension type: essential hypertension Qualified Code(s): I10 - Esse ntial (primary) hypertension Is this a current diagnosis for this admission?: Yes Plan: continue current meds as tolerated (4) COPD (chronic obstructive pulmonary disease) Qualifiers: COPD type: unspecified COPD Qualified Code(s): J44.9 - Chronic obstructive pulmonary disease, unspecified Is this a current diagnosis for this admission?: Yes Plan: duoneb + xopnex prn (5) Hypothyroidism Is this a current diagnosis for this admission?: Yes Plan: check tsh t3 t4 (6) Tobacco dependence Is this a current diagnosis for this admission?: Yes Plan: transdermal nicotine - Time Total Critical Time (Minutes): 45
--- NOTE | 2018-09-23 13:56 | PDOC PROGRESS REPORT ---
Subjective Progress Note for:: 09/21/18 Subjective:: Intubated and sedated Reason For Visit: ACUTE ON CHRONIC HYPOXIC,HYPERCAPNIC RESPIRATORY Physical Exam Vital Signs: Temp Pulse Resp BP Pulse Ox 97.5 F 78 25 H 177/75 H 96 09/22/18 08:00 09/22/18 08:00 09/22/18 08:00 09/22/18 08:00 09/22/18 08:00 Intake & Output 09/21/18 09/22/18 09/23/18 06:59 06:59 06:59 Intake Total 1436 973 100 Output Total 1905 1665 150 Balance -469 -692 -50 Weight 76.5 kg 74.4 kg General appearance: PRESENT: no acute distress, disheveled, obese Head exam: PRESENT: atraumatic, normocephalic Eye exam: PRESENT: conjunctiva pale. ABSENT: nystagmus, periorbital swelling, scleral icterus Mouth exam: PRESENT: dry mucosa, neck supple, tongue midline, other - Endotracheal tube Throat exam: ABSENT: post pharyngeal erythema, tonsillar erythema, tonsillar exudate, tonsillogmegaly, other Neck exam: ABSENT: carotid bruit, full ROM, JVD, lymphadenopathy, meningismus, tenderness, thyromegaly, tracheal deviation, tracheostomy, other Respiratory exam: PRESENT: decreased breath sounds, prolonged expiratory phas, rhonchi, unlabored, wheezes. ABSENT: retraction, stridor Cardiovascular exam: PRESENT: RRR, +S1, +S2 Pulses: PRESENT: normal radial pulses GI/Abdominal exam: PRESENT: soft. ABSENT: hypoactive bowel sounds, mass Gentrourinary exam: PRESENT: indwelling catheter Extremities exam: PRESENT: pedal edema. ABSENT: calf tenderness, clubbing, joint swelling Musculoskeletal exam: ABSENT: deformity, dislocation Neurological exam: PRESENT: altered Psychiatric exam: PRESENT: flat affect Skin exam: PRESENT: dry, warm Results Laboratory Results: 09/21/18 03:31 09/22/18 07:01 09/21/18 09/22/18 09/22/18 21:21 03:39 03:39 Sodium 138.4 Potassium 3.1 L Chloride 102 Carbon Dioxide 26 Anion Gap 10 BUN 26 H Creatinine 0.58 0.45 L Est GFR ( Amer) > 60 > 60 Est GFR (Non-Af Amer) > 60 > 60 Glucose 212 H Calcium 8.6 Magnesium 2.0 09/22/18 07:01 Sodium Potassium 3.4 L Chloride Carbon Dioxide Anion Gap BUN Creatinine Est GFR ( Amer) Est GFR (Non-Af Amer) Glucose Calcium Magnesium 09/15/18 09/15/18 09/16/18 05:25 05:25 03:31 Creatine Kinase 61 Troponin I 0.016 NT-Pro-B Natriuret Pep 2250 H 7660 H Impressions: Head CT 09/15/18 05:27 IMPRESSION: No acute intracranial abnormality. TECHNICAL DOCUMENTATION: Quality ID # 436: Final reports with documentation of one or more dose reduction techniques (e.g., Automated exposure control, adjustment of the mA and/or kV according to patient size, use of iterative reconstruction technique) copyright 2011 [employer]- All Rights Reserved Chest CT 09/21/18 00:00 IMPRESSION: Clear lungs. Chest X-Ray 09/21/18 06:00 IMPRESSION: NO ACUTE RADIOGRAPHIC FINDING IN THE CHEST. SUPPORT DEVICE(S) IN EXPECTED LOCATIONS. Assessment & Plan - Diagnosis (1) Acute on chronic respiratory failure with hypoxia and hypercapnia Is this a current diagnosis for this admission?: Yes Plan: agitated during sedation vacation-thick yellow secretions (2) Chronic congestive heart failure Qualifiers: Heart failure type: unspecified Qualified Code(s): I50.9 - Heart failure, unspecified Is this a current diagnosis for this admission?: Yes Plan: improved (3) Hypertension Qualifiers: Hypertension type: essential hypertension Qualified Code(s): I10 - Essential (primary) hypertension Is this a current diagnosis for this admission?: Yes Plan: continue current meds as tolerated (4) COPD (chronic obstructive pulmonary disease) Qualifiers: COPD type: unspecified COPD Qualified Code(s): J44.9 - Chronic obstructive pulmonary disease, unspecified Is this a current diagnosis for this admission?: Yes Plan: duoneb + xopnex prn (5) Hypothyroidism Is this a current diagnosis for this admission?: Yes Plan: check tsh t3 t4 (6) Tobacco dependence Is this a current diagnosis for this admission?: Yes Plan: transdermal nicotine - Time Total Critical Time (Minutes): 45
--- NOTE | 2018-09-23 13:59 | PDOC PROGRESS REPORT ---
Subjective Progress Note for:: 09/22/18 Subjective:: Intubated and sedated Reason For Visit: ACUTE ON CHRONIC HYPOXIC,HYPERCAPNIC RESPIRATORY Physical Exam Vital Signs: Temp Pulse Resp BP Pulse Ox 97.5 F 78 25 H 177/75 H 96 09/22/18 08:00 09/22/18 08:00 09/22/18 08:00 09/22/18 08:00 09/22/18 08:00 Intake & Output 09/21/18 09/22/18 09/23/18 06:59 06:59 06:59 Intake Total 1436 973 100 Output Total 1905 1665 150 Balance -469 -692 -50 Weight 76.5 kg 74.4 kg General appearance: PRESENT: no acute distress, cooperative, disheveled, obese Head exam: PRESENT: atraumatic, normocephalic Eye exam: PRESENT: conjunctiva pale, EOMI. ABSENT: nystagmus, periorbital swelling Mouth exam: PRESENT: dry mucosa, neck supple, tongue midline, other - ET tube Neck exam: ABSENT: carotid bruit, full ROM, JVD, lymphadenopathy, meningismus, tenderness, thyromegaly, tracheal deviation, tracheostomy, other Respiratory exam: PRESENT: decreased breath sounds, prolonged expiratory phas, rhonchi, symmetrical, unlabored. ABSENT: retraction, stridor Cardiovascular exam: PRESENT: RRR, +S1, +S2 Pulses: PRESENT: normal radial pulses GI/Abdominal exam: PRESENT: hypoactive bowel sounds, soft. ABSENT: mass, tenderness Gentrourinary exam: PRESENT: indwelling catheter Extremities exam: PRESENT: pedal edema. ABSENT: calf tenderness, clubbing, joint swelling Musculoskeletal exam: ABSENT: deformity, dislocation Neurological exam: PRESENT: awake Psychiatric exam: PRESENT: flat affect Skin exam: PRESENT: dry, warm Results Laboratory Results: 09/21/18 03:31 09/22/18 07:01 09/21/18 09/22/18 09/22/18 21:21 03:39 03:39 Sodium 138.4 Potassium 3.1 L Chloride 102 Carbon Dioxide 26 Anion Gap 10 BUN 26 H Creatinine 0.58 0.45 L Est GFR ( Amer) > 60 > 60 Est GFR (Non-Af Amer) > 60 > 60 Glucose 212 H Calcium 8.6 Magnesium 2.0 09/22/18 07:01 Sodium Potassium 3.4 L Chloride Carbon Dioxide Anion Gap BUN Creatinine Est GFR ( Amer) Est GFR (Non-Af Amer) Glucose Calcium Magnesium 09/15/18 09/15/18 09/16/18 05:25 05:25 03:31 Creatine Kinase 61 Troponin I 0.016 NT-Pro-B Natriuret Pep 2250 H 7660 H Impressions: Head CT 09/15/18 05:27 IMPRESSION: No acute intracranial abnormality. TECHNICAL DOCUMENTATION: Quality ID # 436: Final reports with documentation of one or more dose reduction techniques (e.g., Automated exposure control, adjustment of the mA and/or kV according to patient size, use of iterative reconstruction technique) copyright 2011 [employer]- All Rights Reserved Chest CT 09/21/18 00:00 IMPRESSION: Clear lungs. Chest X-Ray 09/21/18 06:00 IMPRESSION: NO ACUTE RADIOGRAPHIC FINDING IN THE CHEST. SUPPORT DEVICE(S) IN EXPECTED LOCATIONS. Assessment & Plan - Diagnosis (1) Acute on chronic respiratory failure with hypoxia and hypercapnia Is this a current diagnosis for this admission?: Yes Plan: Respiratory rate, minute volume, FiO2, airway pressures and mental status all s uggest successful extubation will proceed with extubation (2) Chronic congestive heart failure Qualifiers: Heart failure type: unspecified Qualified Code(s): I50.9 - Heart failure, unspecified Is this a current diagnosis for this admission?: Yes Plan: improved probably at baseline (3) Hypertension Qualifiers: Hypertension type: essential hypertension Qualified Code(s): I10 - Essential (primary) hypertension Is this a current diagnosis for this admission?: Yes Plan: continue current meds as tolerated (4) COPD (chronic obstructive pulmonary disease) Qualifiers: COPD type: unspecified COPD Qualified Code(s): J44.9 - Chronic obstructive pulmonary disease, unspecified Is this a current diagnosis for this admission?: Yes Plan: Secretions now scant (5) Hypothyroidism Is this a current diagnosis for this admission?: Yes Plan: check tsh t3 t4 (6) Tobacco dependence Is this a current diagnosis for this admission?: Yes Plan: transdermal nicotine - Time Total Critical Time (Minutes): 55
[2018-09-23] MEDS ORDERED: METHYLPREDNISOLONE INJ 125 MG/2 ML SDV IV SCH (14:00)
[2018-09-23] MEDS: METHYLPREDNISOLONE INJ 40 MG/1 ML SDV IV SCH ×2 (14:14→21:43)
[2018-09-23] MEDS: CLONAZEPAM 1 MG TABLET PO PRN (14:36)
--- NOTE | 2018-09-23 16:34 | PDOC PROGRESS REPORT ---
Subjective Progress Note for:: 09/23/18 Subjective:: No adverse events overnight. No new complaints. She did fine on nasal cannula overnight. She is been tolerating clear liquids without any difficulty. Reason For Visit: ACUTE ON CHRONIC HYPOXIC,HYPERCAPNIC RESPIRATORY Physical Exam Vital Signs: Temp Pulse Resp BP Pulse Ox 98.1 F 63 16 90/51 L 94 09/23/18 15:28 09/23/18 15:28 09/23/18 15:28 09/23/18 15:28 09/23/18 15:28 Intake & Output 09/22/18 09/23/18 09/24/18 06:59 06:59 06:59 Intake Total 973 1129 350 Output Total 1665 2000 1100 Balance -836 -900 -967 Weight 74.4 kg 77.3 kg General appearance: PRESENT: no acute distress, cooperative, disheveled, obese Respiratory exam: PRESENT: rhonchi, symmetrical, unlabored. ABSENT: accessory muscle use, chest wall tenderness, crackles, prolonged expiratory phas, tachypnea, wheezes Cardiovascular exam: PRESENT: RRR - Occasional PVCs, +S1, +S2 Pulses: PRESENT: normal carotid pulses Vascular exam: PRESENT: normal capillary refill GI/Abdominal exam: PRESENT: normal bowel sounds, soft. ABSENT: distended, guarding, rebound, tenderness Extremities exam: ABSENT: clubbing, pedal edema Musculoskeletal exam: PRESENT: normal inspection. ABSENT: deformity Neurological exam: PRESENT: alert, awake, oriented to person, oriented to place, oriented to time, oriented to situation Psychiatric exam: PRESENT: appropriate affect, normal mood Skin exam: PRESENT: dry, warm Results Laboratory Results: 09/21/18 03:31 09/23/18 03:36 09/23/18 03:36 Sodium 136.5 L Potassium 3.1 L Chloride 98 Carbon Dioxide 28 Anion Gap 11 BUN 20 Creatinine 0.62 Est GFR ( Amer) > 60 Est GFR (Non-Af Amer) > 60 Glucose 290 H Calcium 8.8 09/15/18 09/15/18 09/16/18 05:25 05:25 03:31 Creatine Kinase 61 Troponin I 0.016 NT-Pro-B Natriuret Pep 2250 H 7660 H Impressions: Head CT 09/15/18 05:27 IMPRESSION: No acute intracranial abnormality. TECHNICAL DOCUMENTATION: Quality ID # 436: Final reports with documentation of one or more dose reduction techniques (e.g., Automated exposure control, adjustment of the mA and/or kV according to patient size, use of iterative reconstruction technique) copyright 2011 [employer] All Rights Reserved Chest CT 09/21/18 00:00 IMPRESSION: Clear lungs. Chest X-Ray 09/21/18 06:00 IMPRESSION: NO ACUTE RADIOGRAPHIC FINDING IN THE CHEST. SUPPORT DEVICE(S) IN EXPECTED LOCATIONS. Assessment and Plan - Diagnosis (1) Acute on chronic respiratory failure with hypoxia and hypercapnia Is this a current diagnosis for this admission?: Yes Plan: Resolved. She was extubated successfully. She is doing fine on nasal cannula. (2) Acute exacerbation of chronic obstructive pulmonary disease (COPD) Is this a current diagnosis for this admission?: Yes Plan: We have de-escalated her steroids, continue bronchodilators and antibiotics. (3) Chronic congestive heart failure Qualifiers: Heart failure type: unspecified Qualified Code(s): I50.9 - Heart failure, unspecified Is this a current diagnosis for this admission?: Yes Plan: Not acutely exacerbated, continue home medications (4) Coronary artery disease Qualifiers: Coronary Disease-Associated Artery/Lesion type: [place] artery [place] vs. transplanted heart: [place] heart Associated angina: without angina Qualified Code(s): I25.10 - Atherosclerotic heart disease of [place] coronary artery without angina pectoris Is this a current diagnosis for this admission?: Yes Plan: Continuing home medications (5) Depression Qualifiers: Depression Type: unspecified Qualified Code(s): F32.9 - Major depressive disorder, single episode, unspecified Is this a current diagnosis for this admission?: Yes Plan: 09/15/2018-continue sertraline (6) Diabetes mellitus type 2, noninsulin dependent Is this a current diagnosis for this admission?: Yes Plan: Continue insulin coverage with sliding scale (7) Hypertension Qualifiers: Hypertension type: essential hypertension Qualified Code(s): I10 - Essential (primary) hypertension Is this a current diagnosis for this admission?: Yes Plan: Well-controlled on current regimen (8) Hypothyroidism Qualifiers: Hypothyroidism type: unspecified Qualified Code(s): E03.9 - Hypothyroidism, unspecified Is this a current diagnosis for this admission?: Yes Plan: Continue Synthroid - Time Time Spent with patient: 25-34 minutes - Plan Summary Plan Summary: Working to have her evaluated by physical therapy to determine if she needs some form of rehab after she leaves the hospital.
[2018-09-23] MEDS ORDERED: GLUCAGON,HUMAN RECOMB 1 MG INJ IM PRN (17:00)
[2018-09-23] MEDS ORDERED: DEXTROSE 40% GEL 15 GM TUBE X 2 PO PRN (17:00)
[2018-09-23] MEDS ORDERED: DEXTROSE 50%-WATER SYRINGE 12.5 GM/25 ML DOSE IV PRN (17:00)
[2018-09-23] MEDS ORDERED: DEXTROSE 50%-WATER SYRINGE 25 GM/50 ML DOSE IV PRN (17:00)
[2018-09-23] MEDS ORDERED: DEXTROSE 40% GEL 15 GM TUBE PO PRN (17:00)
[2018-09-23] MEDS: ASPIRIN 81 MG TABLET, CHEWABLE NG SCH (21:43)
[2018-09-23] MEDS: ATORVASTATIN CALCIUM 40 MG TABLET NG SCH (21:44)
[2018-09-24] MEDS: IPRATROPIUM/ALBUTEROL 0.5-2.5 MG/3 ML AMPUL NEB SCH ×4 (02:09→21:15)
[2018-09-24] MEDS: INSULIN LISPRO 100 UNIT/ML 3 ML VIAL SUBCUT SCH ×6 (05:06→21:41)
[2018-09-24] MEDS: PANTOPRAZOLE SODIUM 40 MG PACKET.DR NG SCH (05:16)
[2018-09-24] MEDS: METHYLPREDNISOLONE INJ 40 MG/1 ML SDV IV SCH (05:17)
[2018-09-24] MEDS: LEVOTHYROXINE SODIUM 0.025 MG TABLET NG SCH (05:17)
[2018-09-24] MEDS: FUROSEMIDE INJ/PF 20 MG/2 ML SDV IV SCH ×2 (05:17→18:28)
[2018-09-24] MEDS: GABAPENTIN 400 MG CAPSULE NG SCH ×3 (05:17→21:40)
[2018-09-24] MEDS: CLONAZEPAM 1 MG TABLET PO PRN ×2 (07:34→21:52)
[2018-09-24] MEDS: ONDANSETRON HCL INJ/PF 4 MG/2 ML SDV IV PRN (07:34)
[2018-09-24 08:15] LABS: ABSOLUTE BASOPHILS # (AUTO) 0.1 10^3/uL (0.0-0.2); ABSOLUTE MONOCYTES (AUTO) 0.7 10^3/uL (0.1-1.4); ABSOLUTE NEUT (AUTO) 15.4 10^3/uL (1.7-8.2); BASOPHILS % (AUTO) 0.4 % (0-2); HEMATOCRIT 42.1 % (36.0-47.0); LYMPHOCYTES % (AUTO) 5.9 % (13-45); MEAN CORPUSCULAR HEMOGLOBIN 29.4 pg (27.0-33.4); MEAN CORPUSCULAR HGB CONC 33.3 g/dL (32.0-36.0); MEAN CORPUSCULAR VOLUME 88 fl (80-97); MONOCYTES % (AUTO) 4.3 % (3-13); PLATELET COUNT 376 10^3/uL (150-450); RED BLOOD COUNT 4.77 10^6/uL (3.72-5.28); RED CELL DISTRIBUTION WIDTH 15.5 % (11.5-14.0); SEGMENTED NEUTROPHILS % (AUTO) 89.4 % (42-78); TOTAL CELLS COUNTED % (AUTO) 100 %; WHITE BLOOD COUNT 17.3 10^3/uL (4.0-10.5)
--- NOTE | 2018-09-24 08:37 | RADIOLOGY REPORT (SQ) ---
EXAM DESCRIPTION: CHEST SINGLE VIEW COMPLETED DATE/TIME: 09/24/2018 7:57 am REASON FOR STUDY: copd COMPARISON: 09/21/2018 EXAM PARAMETERS: NUMBER OF VIEWS: One view. TECHNIQUE: Single frontal radiographic view of the chest acquired. RADIATION DOSE: NA LIMITATIONS: None. FINDINGS: LUNGS AND PLEURA: No opacities, masses or pneumothorax. No pleural effusion. MEDIASTINUM AND HILAR STRUCTURES: No masses. Contour normal. HEART AND VASCULAR STRUCTURES: Heart normal in size. Normal vasculature. BONES: No acute findings. HARDWARE: None in the chest. OTHER: Interval removal of endotracheal and nasogastric tubes. IMPRESSION: 1. Since the previous examination dated 09/21/2018, interval removal of support devices. 2. No acute pulmonary findings. TECHNICAL DOCUMENTATION: JOB ID: [id number] [employer]- All Rights Reserved Reading location - IP/workstation name: [email or web address]
[2018-09-24] MEDS: BUDESONIDE NEB 0.5 MG/2 ML AMPUL NEB SCH ×2 (08:40→21:15)
[2018-09-24 08:56] LABS: ANION GAP 14 (5-19); BLOOD UREA NITROGEN 19 mg/dL (7-20); CALCIUM 9.3 mg/dL (8.4-10.2); CARBON DIOXIDE 27 mmol/L (22-30); CHLORIDE 93 mmol/L (98-107); GLUCOSE 389 mg/dL (75-110); POTASSIUM 3.6 mmol/L (3.6-5.0)
[2018-09-24] MEDS: VANCOMYCIN HCL 1,000 MG in DEXTROSE 5%-WATER 250 ML IV SCH (10:41)
[2018-09-24] MEDS: ENOXAPARIN SODIUM INJ 40 MG/0.4 ML DISP.SYRIN SUBCUT SCH (10:42)
[2018-09-24] MEDS: NICOTINE 21 MG/24 HR PATCH.TD24 TD SCH (10:42)
[2018-09-24] MEDS: CARVEDILOL 6.25 MG TABLET NG SCH ×2 (10:42→21:40)
[2018-09-24] MEDS: SERTRALINE HCL 50 MG TABLET NG SCH (10:42)
[2018-09-24] MEDS: SACUBITRIL/VALSARTAN 24 MG/26 MG TABLET NG SCH ×2 (10:42→21:40)
[2018-09-24] MEDS: METFORMIN HCL 850 MG TABLET NG SCH ×2 (10:57→18:28)
[2018-09-24 14:44] LABS: ARTERIAL BLOOD BASE EXCESS 2.8 mmol/L; ARTERIAL BLOOD FIO2 28%; ARTERIAL BLOOD H2CO3 1.44 mmol/L (1.05-1.35); ARTERIAL BLOOD HCO3 28.5 mmol/L (20-24); ARTERIAL BLOOD O2 SATURATION 97.1 % (94-98); ARTERIAL BLOOD PCO2 47.8 mmHg (35-45); ARTERIAL BLOOD PH 7.39 (7.35-7.45); ARTERIAL BLOOD TOTAL CO2 29.9 mmol/L (21-25)
--- NOTE | 2018-09-24 14:56 | PDOC PROGRESS REPORT ---
Subjective Progress Note for:: 09/24/18 Subjective:: No adverse events overnight. No new complaints. Vital signs been stable. Eating and drinking without difficulty. No shortness of breath. No cough. Blood sugars have been elevated, likely from the high-dose steroid she is been on. Reason For Visit: ACUTE ON CHRONIC HYPOXIC,HYPERCAPNIC RESPIRATORY Physical Exam Vital Signs: Temp Pulse Resp BP Pulse Ox 97.8 F 78 18 122/59 L 99 09/24/18 10:38 09/24/18 14:02 09/24/18 14:02 09/24/18 10:38 09/24/18 14:02 Intake & Output 09/23/18 09/24/18 09/25/18 06:59 06:59 06:59 Intake Total 1129 1606 Output Total 1999 2300 Balance -871 -694 Weight 77.3 kg 77.3 kg General appearance: PRESENT: no acute distress, cooperative, disheveled, obese Respiratory exam: PRESENT: rhonchi, symmetrical, unlabored. ABSENT: accessory muscle use, chest wall tenderness, crackles, prolonged expiratory phas, tachypnea, wheezes Cardiovascular exam: PRESENT: RRR - Occasional PVCs, +S1, +S2 Pulses: PRESENT: normal carotid pulses Vascular exam: PRESENT: normal capillary refill GI/Abdominal exam: PRESENT: normal bowel sounds, soft. ABSENT: distended, guarding, rebound, tenderness Extremities exam: ABSENT: clubbing, pedal edema Musculoskeletal exam: PRESENT: normal inspection. ABSENT: deformity Neurological exam: PRESENT: alert, awake, oriented to person, oriented to place, oriented to time, oriented to situation Psychiatric exam: PRESENT: appropriate affect, normal mood Skin exam: PRESENT: dry, warm Results Laboratory Results: 09/24/18 07:57 09/24/18 07:57 09/24/18 09/24/18 09/24/18 06:15 07:57 07:57 WBC 17.3 H RBC 4.77 Hgb 14.0 Hct 42.1 MCV 88 MCH 29.4 MCHC 33.3 RDW 15.5 H Plt Count 376 Seg Neutrophils % 89.4 H Lymphocytes % 5.9 L Monocytes % 4.3 Eosinophils % 0.0 Basophils % 0.4 Absolute Neutrophils 15.4 H Absolute Lymphocytes 1.0 Absolute Monocytes 0.7 Absolute Eosinophils 0.0 Absolute Basophils 0.1 Carbonic Acid Cancelled HCO3/H2CO3 Ratio Cancelled ABG pH Cancelled ABG pCO2 Cancelled ABG pO2 Cancelled ABG HCO3 Cancelled ABG O2 Saturation Cancelled ABG Base Excess Cancelled FiO2 Cancelled Sodium 134.4 L Potassium 3.6 Chloride 93 L Carbon Dioxide 27 Anion Gap 14 BUN 19 Creatinine 0.57 Est GFR ( Amer) > 60 Est GFR (Non-Af Amer) > 60 Glucose 389 H Calcium 9.3 Magnesium 1.8 09/24/18 14:30 WBC RBC Hgb Hct MCV MCH MCHC RDW Plt Count Seg Neutrophils % Lymphocytes % Monocytes % Eosinophils % Basophils % Absolute Neutrophils Absolute Lymphocytes Absolute Monocytes Absolute Eosinophils Absolute Basophils Carbonic Acid 1.44 H HCO3/H2CO3 Ratio 19:1 ABG pH 7.39 ABG pCO2 47.8 H ABG pO2 94.0 ABG HCO3 28.5 H ABG O2 Saturation 97.1 ABG Base Excess 2.8 FiO2 28% Sodium Potassium Chloride Carbon Dioxide Anion Gap BUN Creatinine Est GFR ( Amer) Est GFR (Non-Af Amer) Glucose Calcium Magnesium 09/15/18 09/15/18 09/16/18 05:25 05:25 03:31 Creatine Kinase 61 Troponin I 0.016 NT-Pro-B Natriuret Pep 2250 H 7660 H Impressions: Head CT 09/15/18 05:27 IMPRESSION: No acute intracranial abnormality. TECHNICAL DOCUMENTATION: Quality ID # 436: Final reports with documentation of one or more dose reduction techniques (e.g., Automated exposure control, adjustment of the mA and/or kV according to patient size, use of iterative reconstruction technique) copyright 2011 [employer]- All Rights Reserved Chest CT 09/21/18 00:00 IMPRESSION: Clear lungs. Chest X-Ray 09/24/18 06:00 IMPRESSION: 1. Since the previous examination dated 09/21/2018, interval removal of support devices. 2. No acute pulmonary findings. Assessment and Plan - Diagnosis (1) Acute on chronic respiratory failure with hypoxia and hypercapnia Is this a current diagnosis for this admission?: Yes Plan: Resolved. She was extubated successfully. She is doing fine on nasal cannula. (2) Acute exacerbation of chronic obstructive pulmonary disease (COPD) Is this a current diagnosis for this admission?: Yes Plan: Continue bronchodilators. I discontinued antibiotics. De-escalating her steroids to oral prednisone and will taper her off of her couple of days. (3) Chronic congestive heart failure Qualifiers: Heart failure type: unspecified Qualified Code(s): I50.9 - Heart failure, unspecified Is this a current diagnosis for this admission?: Yes Plan: Not acutely exacerbated, continue home medications (4) Coronary artery disease Qualifiers: Coronary Disease-Associated Artery/Lesion type: [place] artery [place] vs. t ransplanted heart: [place] heart Associated angina: without angina Qualified Code(s): I25.10 - Atherosclerotic heart disease of [place] coronary artery without angina pectoris Is this a current diagnosis for this admission?: Yes Plan: Continuing home medications (5) Depression Qualifiers: Depression Type: unspecified Qualified Code(s): F32.9 - Major depressive disorder, single episode, unspecified Is this a current diagnosis for this admission?: Yes Plan: 09/15/2018-continue sertraline (6) Diabetes mellitus type 2, noninsulin dependent Is this a current diagnosis for this admission?: Yes Plan: Continue insulin coverage with sliding scale. De-escalating steroids. (7) Hypertension Qualifiers: Hypertension type: essential hypertension Qualified Code(s): I10 - Essential (primary) hypertension Is this a current diagnosis for this admission?: Yes Plan: Well-controlled on current regimen (8) Hypothyroidism Qualifiers: Hypothyroidism type: unspecified Qualified Code(s): E03.9 - Hypothyroidism, unspecified Is this a current diagnosis for this admission?: Yes Plan: Continue Synthroid - Time Time Spent with patient: 15-24 minutes
[2018-09-24] MEDS: ASPIRIN 81 MG TABLET, CHEWABLE NG SCH (21:40)
[2018-09-24] MEDS: ATORVASTATIN CALCIUM 40 MG TABLET NG SCH (21:40)
[2018-09-24] MEDS: INSULIN GLARGINE,HUM.REC.ANLOG 1,000 UNIT/10 ML VIAL SUBCUT SCH (21:42)
[2018-09-25] MEDS: IPRATROPIUM/ALBUTEROL 0.5-2.5 MG/3 ML AMPUL NEB SCH ×4 (02:01→19:40)
[2018-09-25] MEDS: LEVOTHYROXINE SODIUM 0.025 MG TABLET NG SCH (05:52)
[2018-09-25] MEDS: GABAPENTIN 400 MG CAPSULE NG SCH ×2 (05:52→13:25)
[2018-09-25] MEDS: FUROSEMIDE INJ/PF 20 MG/2 ML SDV IV SCH ×2 (05:52→17:32)
[2018-09-25] MEDS: PANTOPRAZOLE SODIUM 40 MG PACKET.DR NG SCH (05:53)
[2018-09-25 07:08] LABS: ANION GAP 8 (5-19); BLOOD UREA NITROGEN 16 mg/dL (7-20); CALCIUM 8.8 mg/dL (8.4-10.2); CARBON DIOXIDE 32 mmol/L (22-30); CHLORIDE 96 mmol/L (98-107); GLUCOSE 234 mg/dL (75-110); POTASSIUM 3.1 mmol/L (3.6-5.0)
[2018-09-25] MEDS: INSULIN LISPRO 100 UNIT/ML 3 ML VIAL SUBCUT SCH ×4 (07:59→22:00)
[2018-09-25] MEDS: BUDESONIDE NEB 0.5 MG/2 ML AMPUL NEB SCH ×2 (08:10→19:40)
[2018-09-25] MEDS: ONDANSETRON HCL INJ/PF 4 MG/2 ML SDV IV PRN (08:18)
[2018-09-25] MEDS ORDERED: ACETAMINOPHEN 325 MG TABLET PO ONE (09:30)
[2018-09-25] MEDS: PREDNISONE 20 MG TABLET PO SCH (10:05)
[2018-09-25] MEDS: ENOXAPARIN SODIUM INJ 40 MG/0.4 ML DISP.SYRIN SUBCUT SCH (10:05)
[2018-09-25] MEDS: CARVEDILOL 6.25 MG TABLET NG SCH (10:06)
[2018-09-25] MEDS: NICOTINE 21 MG/24 HR PATCH.TD24 TD SCH (10:06)
[2018-09-25] MEDS: SERTRALINE HCL 50 MG TABLET NG SCH (10:06)
[2018-09-25] MEDS: METFORMIN HCL 850 MG TABLET NG SCH (10:06)
[2018-09-25] MEDS: SACUBITRIL/VALSARTAN 24 MG/26 MG TABLET NG SCH (10:06)
--- NOTE | 2018-09-25 10:27 | RADIOLOGY REPORT (SQ) ---
EXAM DESCRIPTION: CHEST SINGLE VIEW COMPLETED DATE/TIME: 09/25/2018 9:42 am REASON FOR STUDY: SOB COMPARISON: CT chest 09/21/2018 AP chest 09/24/2018, 09/19/2018, 09/17/2018, 08/03/2018 EXAM PARAMETERS: NUMBER OF VIEWS: One view. TECHNIQUE: Single frontal radiographic view of the chest acquired. RADIATION DOSE: NA LIMITATIONS: None. FINDINGS: LUNGS AND PLEURA: Upper lobes are hyperlucent from obstructive disease. No focal infiltra vanessa. No pleural effusion or pneumothorax. MEDIASTINUM AND HILAR STRUCTURES: No masses. Contour normal. HEART AND VASCULAR STRUCTURES: Heart normal in size. Normal vasculature. BONES: No acute findings. HARDWARE: None in the chest. OTHER: No other significant finding. IMPRESSION: NO ACUTE RADIOGRAPHIC FINDING IN THE CHEST. TECHNICAL DOCUMENTATION: JOB ID: [id number] [employer]- All Rights Reserved Reading location - IP/workstation name: [email or web address]
[2018-09-25 13:23] LABS: APPEARANCE,URINE CLEAR; BILIRUBIN,URINE NEGATIVE (NEGATIVE); COLOR,URINE STRAW; GLUCOSE, URINE NEGATIVE (NEGATIVE); KETONES,URINE NEGATIVE (NEGATIVE); LEUKOCYTE ESTERASE,URINE SMALL (NEGATIVE); NITRITE,URINE NEGATIVE (NEGATIVE); PROTEIN,URINE NEGATIVE (NEGATIVE); URINE SPECIFIC GRAVITY 1.005; UROBILINOGEN,URINE NEGATIVE mg/dL (<2.0)
[2018-09-25] MEDS: CLONAZEPAM 1 MG TABLET PO PRN (14:23)
[2018-09-25] MEDS ORDERED: IBUPROFEN 800 MG TABLET PO PRN (15:00)
[2018-09-25] MEDS ORDERED: POTASSIUM CHLORIDE 10 MEQ CAPSULE.ER PO ONE (15:00)
[2018-09-25] MEDS: METFORMIN HCL 850 MG TABLET PO SCH (17:32)
--- NOTE | 2018-09-25 19:49 | PDOC PROGRESS REPORT ---
Subjective Progress Note for:: 09/25/18 Subjective:: No adverse events overnight. Patient reports that she is eating and drinking well. She reports mild nausea without emesis, denies abdominal pain. She does continue to have loose stool; 2 today. Otherwise she reports slight increased productive cough without shortness of breath. She is noted to have rhonchi and wheezing on exam. Patient reports that she is interested in discussing short-term rehab as an option at discharge. Otherwise she has no new questions or concerns at this time. No concerns per nursing. Reason For Visit: ACUTE ON CHRONIC HYPOXIC,HYPERCAPNIC RESPIRATORY Physical Exam Vital Signs: Temp Pulse Resp BP Pulse Ox 97.2 F 81 17 113/55 L 97 09/25/18 14:00 09/25/18 19:00 09/25/18 14:01 09/25/18 14:00 09/25/18 14:01 Intake & Output 09/24/18 09/25/18 09/26/18 06:59 06:59 06:59 Intake Total 1606 1520 Output Total 2300 2250 1800 Balance -694 -730 -1800 Weight 77.3 kg 77.3 kg General appearance: PRESENT: no acute distress, cooperative, disheveled, obese, well-developed, well-nourished Head exam: PRESENT: atraumatic, normocephalic Eye exam: PRESENT: conjunctiva pink, EOMI, PERRLA. ABSENT: scleral icterus Ear exam: PRESENT: normal external ear exam Mouth exam: PRESENT: moist, tongue midline Neck exam: ABSENT: carotid bruit, JVD, lymphadenopathy, thyromegaly Respiratory exam: PRESENT: prolonged expiratory phas, rhonchi, symmetrical, unlabored, wheezes, other - Baseline oxygen requirement. ABSENT: rales Cardiovascular exam: PRESENT: RRR. ABSENT: diastolic murmur, rubs, systolic murmur Pulses: PRESENT: normal dorsalis pedis pul Vascular exam: PRESENT: normal capillary refill GI/Abdominal exam: PRESENT: normal bowel sounds, soft. ABSENT: distended, guarding, mass, organolmegaly, rebound, tenderness Rectal exam: PRESENT: deferred Gentrourinary exam: PRESENT: indwelling catheter Extremities exam: PRESENT: full ROM. ABSENT: calf tenderness, clubbing, pedal edema Neurological exam: PRESENT: alert, awake, oriented to person, oriented to place, oriented to time, oriented to situation, CN II-XII grossly intact. ABSENT: motor sensory deficit Psychiatric exam: PRESENT: appropriate affect, normal mood. ABSENT: homicidal ideation, suicidal ideation Skin exam: PRESENT: dry, intact, warm. ABSENT: cyanosis, rash Results Laboratory Results: 09/24/18 07:57 09/25/18 06:20 09/25/18 09/25/18 06:20 12:15 Sodium 135.8 L Potassium 3.1 L Chloride 96 L Carbon Dioxide 32 H Anion Gap 8 BUN 16 Creatinine 0.55 Est GFR ( Amer) > 60 Est GFR (Non-Af Amer) > 60 Glucose 234 H Calcium 8.8 Urine Color STRAW Urine Appearance CLEAR Urine pH 7.0 Ur Specific [place] 1.005 Urine Protein NEGATIVE Urine Glucose (UA) NEGATIVE Urine Ketones NEGATIVE Urine Blood MODERATE H Urine Nitrite NEGATIVE Ur Leukocyte Esterase SMALL H Urine WBC (Auto) 7 Urine RBC (Auto) 1 09/20/18 10:48 Blood Blood Culture - Final NO GROWTH IN 5 DAYS 09/20/18 10:42 Blood Blood Culture - Final NO GROWTH IN 5 DAYS 09/15/18 09/15/18 09/16/18 05:25 05:25 03:31 Creatine Kinase 61 Troponin I 0.016 NT-Pro-B Natriuret Pep 2250 H 7660 H Impressions: Head CT 09/15/18 05:27 IMPRESSION: No acute intracranial abnormality. TECHNICAL DOCUMENTATION: Quality ID # 436: Final reports with documentation of one or more dose reduction techniques (e.g., Automated exposure control, adjustment of the mA and/or kV according to patient size, use of iterative reconstruction technique) copyright 2011 [employer]- All Rights Reserved Chest CT 09/21/18 00:00 IMPRESSION: Clear lungs. Chest X-Ray 09/25/18 00:00 IMPRESSION: NO ACUTE RADIOGRAPHIC FINDING IN THE CHEST. Assessment and Plan - Diagnosis (1) Acute on chronic respiratory failure with hypoxia and hypercapnia Is this a current diagnosis for this admission?: Yes Plan: Resolved. She was extubated successfully. She is doing well on her baseline oxygen requirement via nasal cannula. Management of COPD exacerbation as below. (2) Acute exacerbation of chronic obstructive pulmonary disease (COPD) Is this a current diagnosis for this admission?: Yes Plan: Patient continues to have slight rhonchi and wheezing on exam. She reports productive cough. She is on her baseline oxygen requirement and speaking in full sentences without increased work of breathing. Previous provider has discontinued antibiotic therapy. She has been weaned from IV Solu-Medrol to p.o. prednisone. Continue with supplemental oxygen as needed. Continue scheduled and as needed nebulizer treatments. (3) Chronic congestive heart failure Qualifiers: Heart failure type: unspecified Qualified Code(s): I50.9 - Heart failure, unspecified Is this a current diagnosis for this admission?: Yes Plan: Not acutely exacerbated, continue home medications (4) Coronary artery disease Qualifiers: Coronary Disease-Associated Artery/Lesion type: [place] artery [place] vs. transplanted heart: [place] heart Associated angina: without angina Qualified Code(s): I25.10 - Atherosclerotic heart disease of [place] coronary artery without angina pectoris Is this a current diagnosis for this admission?: Yes Plan: Continuing home medications (5) Depression Qualifiers: Depression Type: unspecified Qualified Code(s): F32.9 - Major depressive disorder, single episode, unspecified Is this a current diagnosis for this admission?: Yes Plan: Continue sertraline. (6) Diabetes mellitus type 2, noninsulin dependent Is this a current diagnosis for this admission?: Yes Plan: Continue insulin coverage with sliding scale. Holding home dose metformin while admitted. De-escalating steroids. Hypoglycemia protocol in place. (7) Hypertension Qualifiers: Hypertension type: essential hypertension Qualified Code(s): I10 - Essential (primary) hypertension Is this a current diagnosis for this admission?: Yes Plan: Well-controlled on current regimen (8) Hypothyroidism Qualifiers: Hypothyroidism type: unspecified Qualified Code(s): E03.9 - Hypothyroidism, unspecified Is this a current diagnosis for this admission?: Yes Plan: Continue Synthroid (9) Loose stools Is this a current diagnosis for this admission?: Yes Plan: Patient reports 3 episodes of loose stools today without abdominal pain. WBCs are noted to be elevated, however, likely related to steroid therapy. She did have an elevated temperature today, however, it nursing questions its validity. Patient does not appear to be acutely ill. We will start with lactobacillus. Nursing has been instructed to obtain C. difficile PCR and stool culture if she again is febrile. - Time Time Spent with patient: 25-34 minutes Medications reviewed and adjusted accordingly: Yes Anticipated discharge: SNF - Short-term rehab Within: when bed available
--- NOTE | 2018-09-25 19:50 | Progress Note Acknowledgement ---
Progress Note Acknowledgement Progess Note Acknowledgement: I, the undersigned member of the medical staff with appropriate privileges and with supervisory authority over Genesis George, a [facility] practice allied health professional, acknowledge that I have reviewed the progress notes entered on this patient, and in my professional judgment believe that the assessment made and/or any care evidenced was appropriate
[2018-09-25] MEDS ORDERED: LACTOBACILLUS ACIDOPHILUS 250 MG TAB PO SCH (20:00)
[2018-09-25] MEDS: SACUBITRIL/VALSARTAN 24 MG/26 MG TABLET PO SCH (21:59)
[2018-09-25] MEDS: GABAPENTIN 400 MG CAPSULE PO SCH (21:59)
[2018-09-25] MEDS: LACTOBACILLUS ACIDOPHILUS 250 MG TAB PO SCH (22:00)
[2018-09-25] MEDS ORDERED: ATORVASTATIN CALCIUM 40 MG TABLET PO SCH (22:00)
[2018-09-25] MEDS ORDERED: ASPIRIN 81 MG TABLET, CHEWABLE PO SCH (22:00)
[2018-09-25] MEDS: CARVEDILOL 6.25 MG TABLET PO SCH (22:00)
[2018-09-25] MEDS: INSULIN GLARGINE,HUM.REC.ANLOG 1,000 UNIT/10 ML VIAL SUBCUT SCH (22:01)
[2018-09-26] MEDS: IPRATROPIUM/ALBUTEROL 0.5-2.5 MG/3 ML AMPUL NEB SCH ×3 (02:57→13:16)
[2018-09-26] MEDS: FUROSEMIDE INJ/PF 20 MG/2 ML SDV IV SCH (05:57)
[2018-09-26] MEDS: GABAPENTIN 400 MG CAPSULE PO SCH ×2 (05:58→13:33)
[2018-09-26] MEDS ORDERED: LEVOTHYROXINE SODIUM 0.025 MG TABLET PO SCH (06:00)
[2018-09-26] MEDS ORDERED: PANTOPRAZOLE SODIUM 40 MG TABLET.DR PO SCH (06:00)
[2018-09-26] MEDS: INSULIN LISPRO 100 UNIT/ML 3 ML VIAL SUBCUT SCH ×2 (07:40→11:47)
[2018-09-26 07:57] LABS: ANION GAP 10 (5-19); BLOOD UREA NITROGEN 17 mg/dL (7-20); CARBON DIOXIDE 31 mmol/L (22-30); CHLORIDE 95 mmol/L (98-107); GLUCOSE 251 mg/dL (75-110)
[2018-09-26 07:58] LABS: HEMOGLOBIN 12.3 g/dL (12.0-15.5); MEAN CORPUSCULAR HEMOGLOBIN 28.9 pg (27.0-33.4); MEAN CORPUSCULAR HGB CONC 33.2 g/dL (32.0-36.0); MEAN CORPUSCULAR VOLUME 87 fl (80-97); PLATELET COUNT 343 10^3/uL (150-450); RED BLOOD COUNT 4.26 10^6/uL (3.72-5.28); RED CELL DISTRIBUTION WIDTH 15.5 % (11.5-14.0)
[2018-09-26] MEDS: BUDESONIDE NEB 0.5 MG/2 ML AMPUL NEB SCH (08:45)
[2018-09-26] MEDS: NICOTINE 21 MG/24 HR PATCH.TD24 TD SCH (09:13)
[2018-09-26] MEDS: SACUBITRIL/VALSARTAN 24 MG/26 MG TABLET PO SCH (09:14)
[2018-09-26] MEDS: LACTOBACILLUS ACIDOPHILUS 250 MG TAB PO SCH (09:14)
[2018-09-26] MEDS: METFORMIN HCL 850 MG TABLET PO SCH (09:14)
[2018-09-26] MEDS: CARVEDILOL 6.25 MG TABLET PO SCH (09:15)
[2018-09-26] MEDS: PREDNISONE 20 MG TABLET PO SCH (09:15)
[2018-09-26] MEDS: ENOXAPARIN SODIUM INJ 40 MG/0.4 ML DISP.SYRIN SUBCUT SCH (09:17)
[2018-09-26] MEDS ORDERED: SERTRALINE HCL 50 MG TABLET PO SCH (10:00)
[2018-09-26] MEDS ORDERED: POTASSIUM CHLORIDE 10 MEQ CAPSULE.ER PO SCH (10:00)
[2018-09-26 13:15] VITALS: BP 118/62
[2018-09-26] MEDS: CLONAZEPAM 1 MG TABLET PO PRN (13:33)
--- NOTE | 2018-09-26 14:36 | PDOC TRANSFER SUMMARY ---
General - Admit/Disc Date/PCP Admission Date/Primary Care Provider: 09/15/18 08:31 Discharge Date: 09/26/18 - Discharge Diagnosis (1) Acute on chronic respiratory failure with hypoxia and hypercapnia Is this a current diagnosis for this admission?: Yes Summary: Resolved. She was extubated successfully. She is doing well on her baseline oxygen requirement via nasal cannula. Management of COPD exacerbation as below. (2) Acute exacerbation of chronic obstructive pulmonary disease (COPD) Is this a current diagnosis for this admission?: Yes Summary: Acute exacerbation has resolved. She is on her baseline oxygen requirement and speaking in full sentences without increased work of breathing. Completed full course of antibody therapy. She has been weaned from IV Solu-Medrol to p.o. prednisone. Continue with supplemental oxygen as needed. Continue scheduled and as needed nebulizer treatments; encourage pulmonary toilet. (3) Chronic congestive heart failure Is this a current diagnosis for this admission?: Yes Summary: Not acutely exacerbated, continue home medications Lifestyle modification and dietary compliance encouraged. Recommend daily weights (4) Coronary artery disease Is this a current diagnosis for this admission?: Yes Summary: Continuing home medications (5) Depression Is this a current diagnosis for this admission?: Yes Summary: Continue sertraline. (6) Diabetes mellitus type 2, noninsulin dependent Is this a current diagnosis for this admission?: Yes Summary: Lifestyle modification and dietary compliance encouraged. Resume outpatient medication regiment. (7) Hypertension Is this a current diagnosis for this admission?: Yes Summary: Well-controlled on current regimen (8) Hypothyroidism Is this a current diagnosis for this admission?: Yes Summary: Continue Synthroid (9) Loose stools Is this a current diagnosis for this admission?: Yes Summary: Resolved. WBCs are noted to be elevated, however, likely related to steroid therapy. Continue with lactobacillus. - Additional Information Resuscitation Status: Full Code Discharge Diet: Cardiac, Diabetic Discharge Activity: Activity As Tolerated, Balance Activity w/Rest, Slowly Increase Activity, Supervised Activity Prescriptions: Aspirin [Aspirin 81 mg Chewable Tablet] 81 mg PO QHS #90 tab.chew Atorvastatin Calcium [Lipitor 40 mg Tablet] 40 mg PO QHS #30 tablet Carvedilol [Coreg 6.25 mg Tablet] 6.25 mg PO Q12 #60 tablet Clonazepam [Klonopin 1 mg Tablet] 1 mg PO Q12HP PRN #10 tablet PRN Reason: Fluticasone/Umeclidin/Vilanter [Trelegy 100-62.5-25 Mcg Ellipta 14 Dose/Dpi] 1 puff IH DAILY #1 inhaler Furosemide [Lasix 20 mg Tablet] 40 mg PO QAM #60 tablet Gabapentin [Neurontin 400 mg Capsule] 400 mg PO Q8 #90 capsule Insulin Glargine,Hum.rec.anlog [Lantus Insulin 100 Unit/1 ml 10 ml] 20 unit SUBCUT QHS #1 vial Insulin Lispro [Humalog Insulin (Lispro) 100 unit/mL] 0 - 12 unit SUBCUT ACHS #1 vial Ipratropium/Albuterol Sulfate [Duoneb 3 ml Ampul] 3 ml NEB Q6HP PRN #120 vial.neb PRN Reason: Lactobacillus Acidophilus [Bacid 250 mg Tablet] 500 mg PO Q12 #10 tab Levalbuterol HCl [Xopenex Neb 1.25 mg/3 ml Ampul] 1.25 mg NEB RTQ4HP PRN #120 vial.neb PRN Reason: Levothyroxine Sodium [Synthroid 0.025 mg Tablet] 0.025 mg PO Q6AM #30 tablet Metformin HCl [Glucophage 850 mg Tablet] 850 mg PO BID #60 tablet Nicotine [Nicoderm 21 mg/24 Hr Transderm Patch] 1 each TD DAILY #30 patch.td24 Pantoprazole Sodium [Protonix [address] Tablet] 40 mg PO Q6AM #30 tablet.dr Potassium Chloride [Klor-Con 10 Meq Capsule ER] 40 meq PO DAILY #30 capsule.er Prednisone [Deltasone 20 mg Tablet] 60 mg PO DAILY #12 tablet Sacubitril/Valsartan [Entresto 24 mg/26 mg Tablet] 1 tab PO Q12 #60 tablet Sertraline HCl [Zoloft 50 mg Tablet] 50 mg PO DAILY #30 tablet Home Medications: Albuterol Sulfate [Albuterol Sulfate Hfa] 2 puff IH Q6HP PRN 09/15/18 Ondansetron [Zofran Odt 4 mg Tablet] 4 mg PO Q4HP PRN 09/15/18 Aspirin [Aspirin 81 mg Chewable Tablet] 81 mg PO QHS #90 tab.chew 09/26/18 Atorvastatin Calcium [Lipitor 40 mg Tablet] 40 mg PO QHS #30 tablet 09/26/18 Carvedilol [Coreg 6.25 mg Tablet] 6.25 mg PO Q12 #60 tablet 09/26/18 Clonazepam [Klonopin 1 mg Tablet] 1 mg PO Q12HP PRN #10 tablet 09/26/18 Fluticasone/Umeclidin/Vilanter [Trelegy 100-62.5-25 Mcg Ellipta 14 Dose/Dpi] 1 puff IH DAILY #1 inhaler 09/26/18 Furosemide [Lasix 20 mg Tablet] 40 mg PO QAM #60 tablet 09/26/18 Gabapentin [Neurontin 400 mg Capsule] 400 mg PO Q8 #90 capsule 09/26/18 Ibuprofen [Motrin 800 mg Tablet] 800 mg PO Q8HP PRN tablet 09/26/18 Insulin Glargine,Hum.rec.anlog [Lantus Insulin 100 Unit/1 ml 10 ml] 20 unit SUB CUT QHS #1 vial 09/26/18 Insulin Lispro [Humalog Insulin (Lispro) 100 unit/mL] 0 - 12 unit SUBCUT ACHS #1 vial 09/26/18 Ipratropium/Albuterol Sulfate [Duoneb 3 ml Ampul] 3 ml NEB Q6HP PRN #120 vial. neb 09/26/18 Lactobacillus Acidophilus [Bacid 250 mg Tablet] 500 mg PO Q12 #10 tab 09/26/18 Levalbuterol HCl [Xopenex Neb 1.25 mg/3 ml Ampul] 1.25 mg NEB RTQ4HP PRN #120 vial.neb 09/26/18 Levothyroxine Sodium [Synthroid 0.025 mg Tablet] 0.025 mg PO Q6AM #30 tablet 09/26/18 Metformin HCl [Glucophage 850 mg Tablet] 850 mg PO BID #60 tablet 09/26/18 Nicotine [Nicoderm 21 mg/24 Hr Transderm Patch] 1 each TD DAILY #30 patch.td24 09/26/18 Pantoprazole Sodium [Protonix [address] Tablet] 40 mg PO Q6AM #30 tablet.dr 09/26/18 Potassium Chloride [Klor-Con 10 Meq Capsule ER] 40 meq PO DAILY #30 capsule.er 09/26/18 Prednisone [Deltasone 20 mg Tablet] 60 mg PO DAILY #12 tablet 09/26/18 Sacubitril/Valsartan [Entresto 24 mg/26 mg Tablet] 1 tab PO Q12 #60 tablet 09/26/18 Sertraline HCl [Zoloft 50 mg Tablet] 50 mg PO DAILY #30 tablet 09/26/18 History of Present Illness Admission Date/PCP: 09/15/18 08:31 History of Present Illness: Per H&P by Dr. Lacy: MONIQUE BAIRD is a 62 year old female with a history of chronic obstructive pulmonary disease. She has been intubated multiple times before. Presents with acute exacerbation of shortness of breath with a pH of 7.15 and a PCO2 of 78. At the time of this encounter she is intubated and unable to provide any information. Physical Exam Vital Signs: Temp Pulse Resp BP Pulse Ox 98.2 F 67 18 118/62 95 09/26/18 10:55 09/26/18 13:16 09/26/18 13:16 09/26/18 10:55 09/26/18 13:16 Intake & Output 09/25/18 09/26/18 09/27/18 06:59 06:59 06:59 Intake Total 1520 200 620 Output Total 2250 2200 Balance -730 -2000 620 Weight 77.3 kg General appearance: PRESENT: no acute distress, cooperative, disheveled, obese, well-developed, well-nourished Head exam: PRESENT: atraumatic, normocephalic Eye exam: PRESENT: conjunctiva pink, EOMI, PERRLA. ABSENT: scleral icterus Ear exam: PRESENT: normal external ear exam Mouth exam: PRESENT: moist, tongue midline Teeth exam: PRESENT: poor dentation Neck exam: ABSENT: carotid bruit, JVD, lymphadenopathy, thyromegaly Respiratory exam: PRESENT: clear to auscultation alana, symmetrical, unlabored, other - Baseline supplemental oxygen. ABSENT: rales, rhonchi, wheezes Cardiovascular exam: PRESENT: RRR. ABSENT: diastolic murmur, rubs, systolic murmur Pulses: PRESENT: normal dorsalis pedis pul Vascular exam: PRESENT: normal capillary refill GI/Abdominal exam: PRESENT: normal bowel sounds, soft. ABSENT: distended, guarding, mass, organolmegaly, rebound, tenderness Rectal exam: PRESENT: deferred Extremities exam: PRESENT: full ROM. ABSENT: calf tenderness, clubbing, pedal edema Neurological exam: PRESENT: alert, awake, oriented to person, oriented to place, oriented to time, oriented to situation, CN II-XII grossly intact. ABSENT: motor sensory deficit Psychiatric exam: PRESENT: appropriate affect, normal mood. ABSENT: homicidal ideation, suicidal ideation Skin exam: PRESENT: dry, intact, warm. ABSENT: cyanosis, rash Results Laboratory Results: 09/26/18 06:15 09/26/18 06:15 09/26/18 09/26/18 06:15 06:15 WBC 18.0 H RBC 4.26 Hgb 12.3 Hct 37.0 MCV 87 MCH 28.9 MCHC 33.2 RDW 15.5 H Plt Count 343 Sodium 135.7 L Potassium 4.0 Chloride 95 L Carbon Dioxide 31 H Anion Gap 10 BUN 17 Creatinine 0.43 L Est GFR ( Amer) > 60 Est GFR (Non-Af Amer) > 60 Glucose 251 H Calcium 9.0 09/20/18 10:48 Blood Blood Culture - Final NO GROWTH IN 5 DAYS 09/20/18 10:42 Blood Blood Culture - Final NO GROWTH IN 5 DAYS 09/15/18 09/15/18 09/16/18 05:25 05:25 03:31 Creatine Kinase 61 Troponin I 0.016 NT-Pro-B Natriuret Pep 2250 H 7660 H Impressions: Head CT 09/15/18 05:27 IMPRESSION: No acute intracranial abnormality. TECHNICAL DOCUMENTATION: Quality ID # [id number]: Final reports with documentation of one or more dose reduction techniques (e.g., Automated exposure control, adjustment of the mA and/or kV according to patient size, use of iterative reconstruction technique) copyright 2011 [employer]- All Rights Reserved Chest CT 09/21/18 00:00 IMPRESSION: Clear lungs. Chest X-Ray 09/25/18 00:00 IMPRESSION: NO ACUTE RADIOGRAPHIC FINDING IN THE CHEST. Transfer Plan - Disposition Transfer Plan: Discharge to SNF for short-term rehab - Time Spent with Patient Time spent with patient: Less than 30 Minutes Qualifiers - * PATIENT BEING DISCHARGED WITH ANY OF THE FOLLOWING DIAGNOSIS: No Acute Heart Failure - Is this a Heart Failure Patient?: Yes Documentation of LVEF assessment?: No, Document reason LVEF < 40%?: No- if no continue to question #3 Follow-up Appointment scheduled within 7 days?: Yes Plan Discharge Plan: Discharge to SNF for short-term rehab Time Spent: Greater than 30 Minutes
== END 2018-09-26 15:55 | DRG 207 ==
LOC: EDBD → ER 05:20 → EH 08:31 → ICU 09:45 → 4S 09-23 12:35
PROVIDERS: ADMIT Hospitalist; ATTEND Hospitalist
PROC: 5A1955Z Respiratory Ventilation, Greater than 96 Consecutive Hours (ICD-10-PCS; principal; 2018-09-15)
PROC: 0BH17EZ Insertion of Endotracheal Airway into Trachea, Via Natural or Artificial Opening (ICD-10-PCS; 2018-09-15)
DX: J96.21 Acute and chronic respiratory failure with hypoxia (principal); J44.1 Chronic obstructive pulmonary disease with (acute) exacerbation; J96.22 Acute and chronic respiratory failure with hypercapnia; Z78.1 Physical restraint status; E78.5 Hyperlipidemia, unspecified; I25.10 Atherosclerotic heart disease of native coronary artery without angina pectoris; F32.9 Major depressive disorder, single episode, unspecified; E11.9 Type 2 diabetes mellitus without complications; E03.9 Hypothyroidism, unspecified; I11.0 Hypertensive heart disease with heart failure; K21.9 Gastro-esophageal reflux disease without esophagitis; I50.9 Heart failure, unspecified; Z79.899 Other long term (current) drug therapy; Z79.4 Long term (current) use of insulin; Z79.82 Long term (current) use of aspirin; Z88.6 Allergy status to analgesic agent; Z91.02 Food additives allergy status; Z95.5 Presence of coronary angioplasty implant and graft; Z79.890 Hormone replacement therapy
CPT/HCPCS: 31500; 36415; 36600; 70450; 71045; 71260; 80048; 80053; 80202; 81001; 82550; 82565; 82803; 82962; 83735; 83880; 84100; 84132; 84443; 84478; 84484; 85025; 85027; 87040; 87086; 93005; 93010; 94002; 94003; 94640; 94667; 94799; 96365; 96375; 99291; J0295; J1100; J1650; J1815; J1940; J2060; J2250; J2405; J2543; J2704; J2920; J2930; J3010; J3370; J3475; J3480; J3490; J7030; J7050; J7060; J7512; J7620; S0028